=== PATIENT | female | born 1935 | race Hispanic/Latino ===

== ENCOUNTER → 2018-01-24 | Day surgery (SDC) | payer OTHER ==
[2018-01-22 11:49] LABS: BASOPHILS % 0.4 % (0.0-1.0); EOSINOPHILS # (AUTO) 0.1 (0.0-0.4); EOSINOPHILS % 1.2 % (0.0-6.0); HEMOGLOBIN 12.6 g/dL (12.0-16.0); LYMPHOCYTES # (AUTO) 1.9 (1.0-3.2); MEAN CORPUSCULAR HEMOGLOBIN 32.3 pg (28-32); MEAN CORPUSCULAR HGB CONC 34.1 g/dL (31-35); MEAN CORPUSCULAR VOLUME 94.9 fL (81-99); MONOCYTES % 14.1 % (4.4-11.3); NEUTROPHILS # (AUTO) 3.8 (2.1-6.9); PLATELET COUNT 133 x10e3/uL (140-360); RED CELL DISTRIBUTION WIDTH 13.2 % (11.7-14.4)
[~2018-01-24] MED LIST: AMLODIPINE BESYL5 MG PO; ASPIRIN81 MG PO; ATORVASTATIN CA20 MG PO; CARVEDILOL12.5 MG PO; CITALOPRAM HBR20 MG PO; DEXILANT60 MG PO; FERROUS SULFAT325 MG PO; HEMOCYTE PLUS1 EACH PO; LASIX40 MG PO; LEVOTHYROXINE100 MCG PO; LIDOCAINE HCL 2% LOCAL INJ 5 ML SDV VIAL INJ ONE; LINZESS PO; POTASSIUM CHLO20 ME1 PO; POTASSIUM CITR10 MEQ PO; PROPAFENONE HC150 MG PO; PROPOFOL IV EMULSION 10 MG/ML 50 ML VIAL ONE; PROTONIX40 MG PO; SPIRONOLACTONE25 MG PO; VITAMIN C500 M1 PO; VITAMIN C500 M2 PO; XARELTO10 MG PO; XARELTO15 MG PO
[2018-01-24 12:23] LABS: INR 1.23; PARTIAL THROMBOPLASTIN TIME 29.5 seconds (23.8-35.5); PROTHROMBIN TIME 14.6 seconds (11.9-14.5)
[2018-01-24 12:32] LABS: ALBUMIN 3.9 g/dL (3.5-5.0); ALBUMIN/GLOBULIN RATIO 1.1 (0.8-2.0); ANION GAP 16.4 mmol/L (8-16); CALCIUM 9.5 mg/dL (8.4-10.2); CREATININE, SERUM 1.21 mg/dL (0.57-1.11); POTASSIUM 3.4 mmol/L (3.5-5.1)
== END | disposition home or self-care (01) ==
LOC: OR 09:43
PROVIDERS: ATTEND Internal Medicine Gastroenterology
DX: K29.70 Gastritis, unspecified, without bleeding (principal); K44.9 Diaphragmatic hernia without obstruction or gangrene; K63.5 Polyp of colon; K59.00 Constipation, unspecified; K57.30 Diverticulosis of large intestine without perforation or abscess without bleeding; K64.8 Other hemorrhoids; I11.0 Hypertensive heart disease with heart failure; I50.9 Heart failure, unspecified; E78.5 Hyperlipidemia, unspecified; K74.60 Unspecified cirrhosis of liver; D69.6 Thrombocytopenia, unspecified; K58.9 Irritable bowel syndrome, unspecified
CPT/HCPCS: 36415 ×2; 43239; 45380; 80053; 85025; 85610; 85730; 93005; J2001

== ENCOUNTER 2018-05-08 13:14 | Observation (INO) | payer OTHER ==
[~2018-05-08] VITALS: Ht 152.4 cm; Wt 73.5 kg
[~2018-05-08 13:14] MED LIST changes: -LIDOCAINE HCL 2% LOCAL INJ 5 ML SDV VIAL INJ ONE; -PROPOFOL IV EMULSION 10 MG/ML 50 ML VIAL ONE
[2018-05-08 15:51] LABS: BASOPHILS % 0.3 % (0.0-1.0); EOSINOPHILS # (AUTO) 0.1 (0.0-0.4); EOSINOPHILS % 1.1 % (0.0-6.0); HEMATOCRIT 35.4 % (34.2-44.1); HEMOGLOBIN 11.7 g/dL (12.0-16.0); LYMPHOCYTES # (AUTO) 1.5 (1.0-3.2); LYMPHOCYTES % 20.9 % (18.0-39.1); MEAN CORPUSCULAR HEMOGLOBIN 31.4 pg (28-32); MEAN CORPUSCULAR HGB CONC 33.1 g/dL (31-35); MEAN CORPUSCULAR VOLUME 94.9 fL (81-99); MONOCYTES # (AUTO) 0.8 (0.2-0.8); MONOCYTES % 11.3 % (4.4-11.3); NEUTROPHILS # (AUTO) 4.6 (2.1-6.9); RED BLOOD COUNT 3.73 x10e6/uL (3.6-5.1); RED CELL DISTRIBUTION WIDTH 13.7 % (11.7-14.4)
[2018-05-08 15:59] LABS: PLATELET COUNT 96 x10e3/uL (140-360)
[2018-05-08 16:00] LABS: INR 2.24; PROTHROMBIN TIME 26.5 seconds (11.9-14.5)
[2018-05-08 16:12] LABS: ALBUMIN 4.3 g/dL (3.5-5.0); ALBUMIN/GLOBULIN RATIO 1.2 (0.8-2.0); ANION GAP 16.7 mmol/L (8-16); CALCIUM 9.5 mg/dL (8.4-10.2); CREATININE, SERUM 1.49 mg/dL (0.57-1.11); MAGNESIUM 2.5 MG/DL (1.3-2.1); POTASSIUM 3.7 mmol/L (3.5-5.1)
[2018-05-08 16:19] LABS: B-TYPE NATRIURETIC PEPTIDE2 314.1 pg/mL (0-100)
--- NOTE | 2018-05-08 16:23 | Diagnostic Imaging Report ---
A single frontal view of the chest. HISTORY: Shortness of breath, swelling COMPARISON: None available. DISCUSSION: Portable technique, limits sensitivity of the exam. Soft tissue attenuation partially limits sensitivity of the exam. Numerous overlying monitoring leads. Tubes/Lines: A left-sided implanted cardiac device with 2 leads. Lungs and pleura: Diffusely increased pulmonary markings. Mild left basilar volume loss. Mild blunting of the left costophrenic angle and prominence of the right minor fissure. Underlying pathology could be obscured. Heart and mediastinum: The cardiac silhouette is enlarged. Enlargement of the central pulmonary vasculature. Bones: Multiple median sternotomy wires. IMPRESSION: 1. Findings compatible with volume overload resulting in central pulmonary vascular congestion congestion, pulmonary edema, and small bilateral pleural effusions. 2. Mild left basilar atelectasis. 3. Recommend short term follow up routine PA and lateral chest radiographs, in 6-8 weeks, to evaluate for resolution. Signed by: Dr. Avery Biggs D.O., M.M.M. on 05/08/2018 4:19 PM
[2018-05-08] MEDS ORDERED: FUROSEMIDE INJ 10 MG/ML 4 ML VIAL IV NR (16:45)
[2018-05-08 16:47] LABS: CREATINE KINASE MB 1.3 ng/mL (0-5.0); THYROID STIMULATING HORMONE 1.654 uIU/mL (0.350-4.940)
[2018-05-08 18:32] LABS: BILIRUBIN,URINE NEGATIVE (NEGATIVE); CLARITY,URINE CLEAR (CLEAR); COLOR,URINE YELLOW (YELLOW); KETONES,URINE NEGATIVE (NEGATIVE); LEUKOCYTE ESTERASE ,URINE NEGATIVE (NEGATIVE); NITRITE,URINE NEGATIVE (NEGATIVE); PROTEIN,URINE DIPSTICK NEGATIVE (NEGATIVE); URINE UROBILINOGEN 0.2 mg/dL (0.2 - 1)
[2018-05-08 18:41] LABS: EPITHELIAL CELLS,URINE RARE /LPF
--- OUTSIDE RECORDS SUMMARY | 2018-05-08 19:06 | XMS REPORT ---
[facility] Address Unknown Phone Unavailable Care Team Providers Care Accounts Clerk Name Role Phone Luis Eduardo BRODY Unavailable Unavailable Problems This patient has no known problems. Allergies, Adverse Reactions, Alerts This patient has no known allergies or adverse reactions. Medications This patient has no known medications. Results Test Description Test Time Test Comments Text Results Atomic Results Result Comments CHEST SINGLE (PORTABLE) 2018-05-08 16:16:00 [place] [address] Patient Name: IWONA REYES MR #: [id number] : 1935 Age/Sex: 83/F Req #: [id number] Adm Physician: Ordered by: CONNOR BRODY MD Report #: [id number] Location: ER Room/Bed: Procedure: [id number] DX/CHEST SINGLE (PORTABLE) Exam Date: 05/08/18 Exam Time: 1545 REPORT STATUS: Signed A single frontal view of the chest. HISTORY: Shalini rtness of breath, swelling COMPARISON: None available. DISCUSSION: Portable technique, limits sensitivity of the exam. Soft tissue attenuation partially limits sensitivity of the exam. Numerous overlying monitoring leads. Tubes/Lines: A left-sided implanted cardiac device with 2 leads. Lungs and pleura: Diffusely increased pulmonary markings. Mild left basilar volume loss. Mild blunting of the left costophrenic angle and prominence of the right minor fissure. Underlying pathology could be obscured. Heart and mediastinum: The cardiac silhouette is enlarged. Enlargement of the central pulmonary vasculature. Bones: Multiple median sternotomy wires. IMPRESSION: 1. Findings compatible with volume overload resulting in central pulmonary vascular congestion congestion, pulmonary edema, and small bilateral pleural effusions. 2. Mild left basilar atelectasis. 3. Recommend short term follow up routine PA and lateral chest radiographs, in 6- 8 weeks, to evaluate for resolution. Signed by: Dr. Susannah Biggs D.O., M.M.M. on 05/08/2018 4:19 PM Dictated By: SUSANNAH BIGGS DO 18 Transcribed By: FARHAT on 05/08/181618 COPY TO: CONNOR BRODY MD
[2018-05-08 23:38] LABS: CREATINE KINASE MB 1.1 ng/mL (0-5.0)
[2018-05-09 06:21] LABS: BASOPHILS % 0.3 % (0.0-1.0); EOSINOPHILS # (AUTO) 0.1 (0.0-0.4); EOSINOPHILS % 0.9 % (0.0-6.0); HEMATOCRIT 33.3 % (34.2-44.1); HEMOGLOBIN 11.1 g/dL (12.0-16.0); LYMPHOCYTES # (AUTO) 1.2 (1.0-3.2); LYMPHOCYTES % 17.4 % (18.0-39.1); MEAN CORPUSCULAR HEMOGLOBIN 31.6 pg (28-32); MEAN CORPUSCULAR HGB CONC 33.3 g/dL (31-35); MEAN CORPUSCULAR VOLUME 94.9 fL (81-99); MONOCYTES # (AUTO) 0.7 (0.2-0.8); MONOCYTES % 10.1 % (4.4-11.3); NEUTROPHILS # (AUTO) 4.9 (2.1-6.9); PLATELET COUNT 109 x10e3/uL (140-360); RED BLOOD COUNT 3.51 x10e6/uL (3.6-5.1); RED CELL DISTRIBUTION WIDTH 13.6 % (11.7-14.4)
[2018-05-09 07:21] LABS: ALBUMIN 3.9 g/dL (3.5-5.0); ALBUMIN/GLOBULIN RATIO 1.2 (0.8-2.0); ANION GAP 13.5 mmol/L (8-16); CALCIUM 9.2 mg/dL (8.4-10.2); CREATININE, SERUM 1.27 mg/dL (0.57-1.11); POTASSIUM 3.5 mmol/L (3.5-5.1)
[2018-05-09 08:34] LABS: CREATINE KINASE MB 0.9 ng/mL (0-5.0)
[2018-05-09] MEDS: FUROSEMIDE INJ 10 MG/ML 4 ML VIAL IV SCH ×2 (08:45→17:16)
[2018-05-09] MEDS: CARVEDILOL 12.5 MG TAB PO SCH ×2 (11:03→17:16)
[2018-05-09] MEDS: PANTOPRAZOLE SOD 40 MG TABEC PO SCH (11:03)
[2018-05-09] MEDS: LEVOTHYROXINE SODIUM 75 MCG TAB PO SCH (11:03)
[2018-05-09] MEDS: RIVAROXABAN 15 MG TABLET PO SCH (11:03)
[2018-05-09] MEDS: PROPAFENONE HCL 150 MG TAB PO SCH ×2 (11:03→17:16)
[2018-05-09 11:22] VITALS: BP 144/74
[2018-05-09 11:45] VITALS: BP 144/74
[2018-05-09 15:06] VITALS: BP 130/60
[2018-05-09] MEDS ORDERED: PROPAFENONE HCL 150 MG TAB PO SCH (17:00)
[2018-05-09] MEDS ORDERED: CARVEDILOL 12.5 MG TAB PO SCH (17:00)
[2018-05-09 20:00] VITALS: BP 135/66
[2018-05-09] MEDS ORDERED: ATORVASTATIN 20 MG TAB PO SCH (21:00)
[2018-05-09 23:42] VITALS: BP 123/59
[2018-05-09 23:43] VITALS: BP 123/59
[2018-05-10 04:55] VITALS: BP 135/62
[2018-05-10 05:46] LABS: ANION GAP 15.1 mmol/L (8-16); CALCIUM 9.6 mg/dL (8.4-10.2); CREATININE, SERUM 1.32 mg/dL (0.57-1.11); POTASSIUM 4.1 mmol/L (3.5-5.1)
[2018-05-10] MEDS ORDERED: LEVOTHYROXINE SODIUM 75 MCG TAB PO SCH (06:00)
[2018-05-10] MEDS: LEVOTHYROXINE SODIUM 75 MCG TAB PO SCH (06:08)
[2018-05-10 07:24] VITALS: BP 131/60
[2018-05-10 08:56] VITALS: BP 131/60
[2018-05-10] MEDS ORDERED: RIVAROXABAN 10 MG TABLET PO SCH (09:00)
[2018-05-10] MEDS ORDERED: LEVOTHYROXINE SODIUM 100 MCG TAB PO SCH (09:00)
[2018-05-10] MEDS ORDERED: RIVAROXABAN 15 MG TABLET PO SCH (09:00)
[2018-05-10] MEDS ORDERED: FERROUS SULFATE 325 MG TAB PO SCH (09:00)
[2018-05-10] MEDS ORDERED: PANTOPRAZOLE SOD 40 MG TABEC PO SCH ×2 (09:00)
[2018-05-10] MEDS ORDERED: CITALOPRAM HYDROBROMIDE 20 MG TAB PO SCH (09:00)
[2018-05-10] MEDS ORDERED: NON-FORMULARY MEDICATION ([Linzess] 290 MCG) PO SCH ×2 (09:00)
[2018-05-10] MEDS ORDERED: ASCORBIC ACID 500 MG TAB PO SCH (09:00)
[2018-05-10] MEDS: PANTOPRAZOLE SOD 40 MG TABEC PO SCH (09:25)
[2018-05-10] MEDS: PROPAFENONE HCL 150 MG TAB PO SCH (09:25)
[2018-05-10] MEDS: FUROSEMIDE INJ 10 MG/ML 4 ML VIAL IV SCH (09:25)
[2018-05-10] MEDS: CARVEDILOL 12.5 MG TAB PO SCH (09:25)
[2018-05-10] MEDS: RIVAROXABAN 15 MG TABLET PO SCH (09:26)
[2018-05-10 11:36] VITALS: BP 149/67
--- NOTE | 2018-05-10 14:30 | Discharge Summary ---
The patient was in observation. PCP: Layo De Los Santos MD FINAL DIAGNOSIS: [id number] systolic dysfunction congestive heart failure exacerbation. SUMMARY: This 83-year-old female was drinking a lot of hot water, eating soup, orange juice and coffee. Patient came in with vascular congestion on chest x-ray. Patient basically has acute exacerbation of her systolic/diastolic dysfunction congestive heart failure. The patient has atrial fibrillation. 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 She has AV thickening as well. Patient has trace PI. Patient also has trace to mild MR and IL. Patient is stable now. She was given IV Lasix. At home, the patient was only taking Lasix 40 mg twice a day. The patient is comfortable today. She will go home now. The swelling has significantly subsided. I will add on Zaroxolyn 2.5 mg daily as needed for increase in swelling. The patient is otherwise stable. Discharged home follow up with Dr. Layo De Los Santos in approximately 1 week. Job#: [id number]
== END 2018-05-10 11:41 | disposition home or self-care (01) ==
LOC: ER 13:14 → INTOOBSV 19:04 → ERHOLD 19:04 → IMCU 05-09 11:15
PROVIDERS: ADMIT Internal Medicine; ATTEND Internal Medicine
DX: I11.0 Hypertensive heart disease with heart failure (principal); I50.43 Acute on chronic combined systolic (congestive) and diastolic (congestive) heart failure; E78.5 Hyperlipidemia, unspecified; K21.9 Gastro-esophageal reflux disease without esophagitis; E03.9 Hypothyroidism, unspecified; I25.10 Atherosclerotic heart disease of native coronary artery without angina pectoris; Z95.1 Presence of aortocoronary bypass graft; Z95.810 Presence of automatic (implantable) cardiac defibrillator; D64.9 Anemia, unspecified; R09.02 Hypoxemia; I48.91 Unspecified atrial fibrillation
CPT/HCPCS: 36415 ×3; 71045; 80048; 80053 ×2; 81001; 82550 ×2; 82553 ×2; 82948; 83605; 83735; 83880; 84443; 84484 ×2; 85025 ×2; 85610; 85730; 87040; 87086; 93005; 93306; 99284; G0378 ×3; J1940 ×3; S0164 ×2

== ENCOUNTER 2019-01-11 13:58 | Inpatient (IN) | payer MEDICARE, OTHER ==
[~2019-01-11] VITALS: Ht 160 cm; Wt 74.0 kg
--- OUTSIDE RECORDS SUMMARY | 2019-01-11 14:02 | XMS REPORT | Continuity of Care Document ---
Author Author [email or web address] Organization gate5 Address Unknown Phone Unavailable Care Team Providers Care Cloth Reeler Name Role Phone [email or web address] Unavailable Unavailable Problems Problem Status Onset Date Classification Date Reported Comments Source I63.9 Active 08/03/2018 [facility] PACEMAKER DUAL CHAMBER RV LEAD REVISION Active 06/27/2018 [facility] AMS Active 10/23/2015 [facility] ACUTE CONFUSION Active 10/23/2015 [facility] Discharge Diagnosis: Abdominal pain 04/15/2015 04/18/2015 [facility] SOB/FEET SWOLLEN/CANT PASS ANYTHING Active 04/14/2015 [facility] Discharge Diagnosis: Neck pain 02/02/2015 02/05/2015 [facility] 285 - ANEMIA NEC/NOS Active 02/02/2015 [facility] SOB Active 02/02/2015 [facility] CAHF Active 12/04/2014 [facility] DIFFICULTY BREATHING Active 12/02/2014 [facility] PLEURAL EFFUSION Active 12/02/2014 [facility] LWBS Active 11/29/2014 [facility] Discharge Diagnosis: Nausea and vomiting 10/30/2014 11/02/2014 [facility] Discharge Diagnosis: Cough 10/30/2014 11/02/2014 [facility] Discharge Diagnosis: Creatinine elevation 10/30/2014 11/02/2014 [facility] FEVER, VOMITING, NOSE BLEEDS, HEADACHE Active 10/30/2014 [facility] POSSIBLE MINI STROKE Active 10/07/2014 [facility] TIA Active 10/07/2014 [facility] Final: 10/14/2014 [facility] Afib Active Problem 08/06/2018 [facility] Resolved Problem 08[facility]06[facility]2018 [facility] Active Problem 08/06/2018 [facility] Active Problem 08/06/2018 [facility] CAD (Confirmed) Active Problem 08/06/2018 [facility] Heart failure Active Problem 08/06/2018 [facility], [place] HTN (Confirmed) Active Problem 08/06/2018 [facility] Hypertension Resolved Problem 08/06/2018 [facility] TRANS CEREB ISCHEMIA NEC Active [facility] PLEURAL EFFUSION NOS Active [facility] CEREBRAL INFARCTION, UNSPECIFIED Active [facility] Medications Medication Details Route Status Patient Instructions Ordering Provider Order Date Source Lactulose 667 MG/ML Oral Solution 20 gm=30 mL, PO, BID, X 30 day, # 1800 mL, 2 Refill(s) Active 10/25/2015 [facility] Omeprazole 40 mg, Route: PO, Drug form: DRC, Daily, Dosing Weight 63.636, kg, Start date: 10/25/15 9:00:00 CDT, Duration: 30 day, Stop date: 11/23/15 9:00:00 CDT No Longer Active 10/25/2015 [facility] Aspirin 81 MG Enteric Coated Tablet 81 mg, 1 tab, Route: PO, Drug form: ECTAB, Daily, Dosing Weight 63.636, kg, Start date: 10/25/15 9:00:00 CDT, Duration: 30 day, Stop date: 11/23/15 9:00:00 CDTNotes: Do not crush or chew. (Same As: Ecotrin) Inactive 10/25/2015 [facility] Amlodipine 5 mg, 1 tab, Route: PO, Drug form: TAB, Daily, Dosing Weight 63.636, kg, Start date: 10/25/15 9:00:00 CDT, Duration: 30 day, Stop date: 11/23/15 9:00:00 CDTNotes: (Same as: Norvasc) Inactive 10/25/2015 [facility] Vitamin C 500 mg, 1 tab, Route: PO, Drug form: TAB, Daily, Dosing Weight 63.636, kg, Start date: 10/25/15 9:00:00 CDT, Duration: 30 day, Stop date: 11/23/15 9:00:00 CDTNotes: (Same as: Vitamin C) Inactive 10/25/2015 [facility] Thyroxine 100 microgram, 1 tab, Route: PO, Drug form: TAB, Before Breakfast, Dosing Weight 63.636, kg, Start date: 10/25/15 7:30:00 CDT, Duration: 30 day, Stop date: 11/23/15 7:30:00 CDTNotes: Take 1 hour before or 2 hours after meal; Enteral feeds may interefere with the absorption of this medication. (Same as:Levothroid, Synthroid) Inactive 10/25/2015 [facility] atorvastatin 20 mg, 1 tab, Route: PO, Drug form: TAB, Bedtime, Dosing Weight 63.636, kg, Start date: 10/24/15 21:00:00 CDT, Duration: 30 day, Stop date: 11/22/15 21:00:00 CDTNotes: (Same As: Lipitor) No Longer Active 10/25/2015 [facility] Lactulose 20 gm, 30 ml, Route: PO, Drug Form: SYRP, Dosing Weight 63.636, kg, TID, Start date: 10/24/15 17:00:00 CDT, Duration: 30 day, Stop date: 11/23/15 13:00:00 CDTNotes: (Same as:Chronulac) No Longer Active 10/24/2015 [facility] Xarelto 15 mg, 1 tab, Route: PO, Drug form: TAB, QPM, Dosing Weight 63.636, kg, Start date: 10/24/15 17:00:00 CDT, Duration: 30 day, Stop date: 11/22/15 17:00:00 CDTNotes: (Same as: Xarelto) Administer with food No Longer Active 10/24/2015 [facility] Furosemide 40 MG Oral Tablet 40 mg, 1 tab, Route: PO, Drug form: TAB, BID, Dosing Weight 63.636, kg, Start date: 10/24/15 17:00:00 CDT, Duration: 30 day, Stop date: 11/23/15 9:00:00 CDTNotes: (Same as: Lasix) May cause GI upset. Give with food or milk. No Longer Active 10/24/2015 [facility] carvedilol 12.5 mg, 1 tab, Route: PO, Drug form: TAB, BID, Dosing Weight 63.636, kg, Start date: 10/24/15 17:00:00 CDT, Duration: 30 day, Stop date: 11/23/15 9:00:00 CDTNotes: Give with food. (Same As: Coreg) No Longer Active 10/24/2015 [facility] Protonix 40 mg, 1 tab, Route: PO, Drug form: ECTAB, Before Dinner, Start date: 10/24/15 16:30:00 CDT, Duration: 30 day, Stop date: 11/22/15 16:30:00 CDTNotes: Tablet should not be chewed or crushed. (Same as: Protonix) No Longer Active 10/24/2015 [facility] Propafenone 150 mg, 1 tab, Route: PO, Drug form: TAB, Q8H, Dosing Weight 63.636, kg, Start date: 10/24/15 16:00:00 CDT, Duration: 30 day, Stop date: 11/23/15 8:00:00 CDTNotes: (Same as: Rythmol) No Longer Active 10/24/2015 [facility] Acetaminophen 650 mg, 2 tab, Route: PO, Drug form: TAB, Q4H, Dosing Weight 63.636, kg, PRN Pain 1-3/Temp > 100.4 F, Start date: 10/24/15 11:51:00 CDT, Duration: 30 day, Stop date: 11/23/15 11:50:00 CDTNotes: Do not exceed 4 gm/day. (Same as: Tylenol) No Longer Active 10/24/2015 [facility] Tylenol 650 mg, Route: PO, Drug form: TAB, ONCE, Dosing Weight 63.636, kg, Priority: STAT, Start date: 10/24/15 9:51:00 CDT, Stop date: 10/24/15 9:51:00 CDT Inactive 10/24/2015 [facility] GI cocktail 30 mL, Route: PO, Drug Form: SUSP, Dosing Weight 65.909, kg, ONCE, STAT, Start date: 04/15/15 0:08:00, Stop date: 04/15/15 0:08:00Notes: G.I. Cocktail=antacid with simethicone 22.5 mL - lidocaine viscous 7.5 mL Inactive 04/15/2015 [facility] Saline Flush 0.9% 10 mL, Route: IVP, Drug Form: INJ, Dosing Weight 65.909, kg, PRN, PRN Line Flush, Start date: 04/14/15 22:07:00, Duration: 30 day, Stop date: 05/14/15 21:06:00Notes: (Same as: BD Posiflush) No Longer Active 04/15/2015 [facility] Ibuprofen 600 mg, 1 tab, Route: PO, Drug form: TAB, ONCE, Dosing Weight 65.909, kg, Priority: STAT, Start date: 02/02/15 13:44:00, Stop date: 02/02/15 13:44:00Notes: (Same as: Motrin) "Do Not Crush" Take with food. Inactive 02/02/2015 [facility] Sodium Chloride 0.154 MEQ/ML Inhalant Solution 1 bottle, INHALATION, Bedtime, # 1 btl, 3 Refill(s) Active 10/31/2014 [facility] Ondansetron 4 MG Oral Tablet [Zofran] 4 mg=1 tab, PO, BID, PRN Nausea, X 5 day, # 10 tab, 0 Refill(s) Active 10/31/2014 [facility] benzonatate 100 MG Oral Capsule [Tessalon Perles] 100 mg=1 cap, PO, TID, PRN Cough/Congestion, X 7 day, # 21 cap, 0 Refill(s) Active 10/31/2014 [facility] Sodium Chloride 0.154 MEQ/ML Injectable Solution 250 mL, 250 ml/hr, Infuse Over: 1 hr, Route: IV, 250, Drug form: INJ, ONCE, Priority: STAT, Dosing Weight 68.002 kg, Start date: 10/30/14 19:59:00, Duration: 1 doses or times, Stop date: 10/30/14 19:59:00 Inactive 10/31/2014 [facility] Aspirin 325 mg, 1 tab, Route: PO, Drug form: TAB, ONCE, Dosing Weight 68.002, kg, Priority: STAT, Start date: 10/30/14 19:59:00, Stop date: 10/30/14 19:59:00 Inactive 10/31/2014 [facility] Ibuprofen 600 mg, Route: PO, ONCE, Dosing Weight 68.002, kg, Priority: STAT, Start date: 10/30/14 19:58:00, Stop date: 10/30/14 19:58:00 Inactive 10/31/2014 [facility] Ondansetron 4 mg, 2 mL, Route: IVP, Drug form: INJ, ONCE, Dosing Weight 68.002, kg, Priority: STAT, Start date: 10/30/14 19:58:00, Stop date: 10/30/14 19:58:00Notes: (Same as: Zofran) MEDICATION WASTE Product Size: 4 mg Product Wasted: ___ mg Inactive 10/31/2014 [facility] Morphine 4 mg, 1 mL, Route: IVP, Drug form: INJ, ONCE, Dosing Weight 68.002, kg, Priority: STAT, Start date: 10/30/14 19:58:00, Stop date: 10/30/14 19:58:00Notes: (Same as:MORPhine Sulfate) Inactive 10/31/2014 [facility] Furosemide 40 MG Oral Tablet [Lasix] 40 mg, 1 tab, Route: PO, Drug form: TAB, BID, Dosing Weight 75, kg, Start date: 10/12/14 17:00:00, Duration: 30 day, Stop date: 11/11/14 9:00:00Notes: (Same as: Lasix) May cause GI upset. Give with food or milk. Inactive 10/12/2014 [facility] potassium citrate 10 mEq oral extended release tablet 10 mEq=1 tab, PO, Daily, # 30 tab, 0 Refill(s) Active 10/12/2014 [facility] Furosemide 40 MG Oral Tablet [Lasix] 40 mg=1 tab, PO, BID, # 60 tab, 0 Refill(s) Active 10/12/2014 [facility] potassium chloride 20 mEq, 1 tab, Route: PO, Drug form: ERTAB, ONCE, Dosing Weight 75, kg, Start date: 10/11/14 7:22:00, Stop date: 10/11/14 7:22:00Notes: (Same as: K-Dur 20) "Do Not Crush" With food and full glass of water Inactive 10/11/2014 [facility] Tylenol 650 mg, 2 tab, Route: PO, Drug form: TAB, Q6H, Dosing Weight 75, kg, PRN Pain Score 1-5, Start date: 10/10/14 18:21:00, Duration: 30 day, Stop date: 11/09/14 18:20:00Notes: Do not exceed 4 gm/day. ( Same as: Tylenol) No Longer Active 10/10/2014 [facility] Lasix 40 mg, 4 mL, Route: IV, Drug form: INJ, BID, Dosing Weight 75, kg, Start date: 10/10/14 18:00:00, Duration: 30 day, Stop date: 11/09/14 17:00:00Notes: (Same as: Lasix) MEDICATION WASTE Product Size: 40 mg Product Wasted: ___ mg No Longer Active 10/10/2014 [facility] Lasix 20 mg, 2 mL, Route: IV, Drug form: INJ, ONCE, Dosing Weight 75, kg, Start date: 10/10/14 8:45:00, Stop date: 10/10/14 8:45:00Notes: (Same as: Lasix) Inactive 10/10/2014 [facility] Lasix 20 mg, 2 mL, Route: IVP, Drug form: INJ, BID Diuretic, Dosing Weight 75, kg, Start date: 10/10/14 6:00:00, Duration: 30 day, Stop date: 11/08/14 14:00:00Notes: (Same as: Lasix) Inactive 10/10/2014 [facility] Lasix 40 mg, 4 mL, Route: IV, Drug form: INJ, ONCE, Dosing Weight 75, kg, Priority: STAT, Start date: 10/09/14 11:57:00, Stop date: 10/09/14 11:57:00Notes: (Same as: Lasix) Inactive 10/09/2014 [facility] Lasix 40 mg, 4 mL, Route: IV, Drug form: INJ, ONCE, Dosing Weight 75, kg, Start date: 10/09/14 6:55:00, Stop date: 10/09/14 6:55:00Notes: (Same as: Lasix) MEDICATION WASTE Product Size: 40 mg Product Wasted: ___ mg Inactive 10/09/2014 [facility] Albuterol 0.833 MG/ML / Ipratropium Hanna 0.167 MG/ML Inhalant Solution [DuoNeb] 3 ml, Route: INHALATION, Drug Form: SOLN, Dosing Weight 75, kg, PRN, PRN Respiratory Protocol, Start date: 10/09/14 3:22:00, Duration: 30 day, Stop date: 11/08/14 3:21:00Notes: (Same as: Duoneb) No Longer Active 10/09/2014 [facility] Zofran 4 mg, 2 mL, Route: IVP, Drug form: INJ, ONCE, Dosing Weight 75, kg, Start date: 10/09/14 1:37:00, Stop date: 10/09/14 1:37:00Notes: (Same as: Zofran) MEDICATION WASTE Product Size: 4 mg Product Wasted: ___ mg Inactive 10/09/2014 [facility] Robitussin-DM 10 mL, Route: PO, Drug Form: SYRP, Q6H, PRN Cough, Start date: 10/08/14 23:49:00, Duration: 30 day, Stop date: 11/07/14 23:48:00Notes: (dextromethorphan-guaifenesin 10-100mg/5ml 10 ml oral SOLN ud) ( Same as: Robitussin DM) No Longer Active 10/09/2014 [facility] Lipitor 80 mg, 1 tab, Route: PO, Drug form: TAB, Bedtime, Dosing Weight 70.455, kg, Start date: 10/08/14 21:00:00, Duration: 30 day, Stop date: 11/06/14 21:00:00Notes: Same as Lipitor No Longer Active 10/09/2014 [facility] Cough Relief 30 mg, Route: PO, Q8H, Dosing Weight 75, kg, PRN Cough/Congestion, Start date: 10/08/14 20:46:00, Duration: 30 day, Stop date: 11/07/14 20:45:00 Inactive 10/09/2014 [facility] Robitussin Cough Drop Head lozenge Route: PO, Q6H, PRN Cough, Start date: 10/08/14 20:45:00, Duration: 30 day, Stop date: 11/07/14 20:44:00 Inactive 10/09/2014 [facility] rivaroxaban 15 MG Oral Tablet [Xarelto] 15 mg=1 tab, PO, QPM Active 10/09/2014 [facility] levothyroxine 100 mcg (0.1 mg) oral tablet 100 microgram=1 tab, PO, QAM Active 10/09/2014 [facility] amLODIPine 5 mg oral tablet 5 mg=1 tab, PO, Daily No Longer Active 10/09/2014 [facility] dexlansoprazole 60 MG Enteric Coated Capsule [Dexilant] 60 mg=1 cap, PO, Daily Active 10/09/2014 [facility] propafenone 150 mg oral tablet 150 mg=1 tab, PO, Q8H Active 10/09/2014 [facility] Vitamin C 500 mg oral tablet 500 mg=1 tab, PO, Daily Active 10/09/2014 [facility] carvedilol 12.5 mg oral tablet 12.5 mg=1 tab, PO, BID No Longer Active 10/09/2014 [facility] atorvastatin 20 mg oral tablet 20 mg=1 tab, PO, Bedtime Active 10/09/2014 [facility] Aspirin 81 MG Enteric Coated Tablet 81 mg=1 tab, PO, Daily Active 10/09/2014 [facility] docusate sodium 100 mg oral capsule 100 mg=0, PO, BID, PRN Constipation No Longer Active 10/09/2014 [facility] Xarelto 15 mg, 1 tab, Route: PO, Drug form: TAB, QPM, Dosing Weight 70.455, kg, Start date: 10/08/14 17:00:00, Duration: 30 day, Stop date: 11/06/14 17:00:00Notes: (Same as: Xarelto) Administer with food No Longer Active 10/08/2014 [facility] Aspirin 81 mg, 1 tab, Route: PO, Drug form: ECTAB, Daily, Dosing Weight 70.455, kg, Start date: 10/08/14 9:00:00, Duration: 30 day, Stop date: 11/06/14 9:00:00Notes: Do not crush or chew. (Same As: Ecotrin) No Longer Active 10/08/2014 [facility] Thyroxine 100 microgram, 1 tab, Route: PO, Drug form: TAB, Q630AM, Dosing Weight 70.455, kg, Start date: 10/08/14 6:30:00, Duration: 30 day, Stop date: 11/06/14 6:30:00Notes: Take 1 hour before or 2 hours after meal; Enteral feeds may interefere with the absorption of this medication. (Same as:Levothroid, Synthroid) No Longer Active 10/08/2014 [facility] Propafenone 150 mg, 1 tab, Route: PO, Drug form: TAB, Q8H, Dosing Weight 70.455, kg, Start date: 10/08/14 0:00:00, Duration: 30 day, Stop date: 11/06/14 16:00:00Notes: (Same as: Rythmol) No Longer Active 10/08/2014 [facility] Docusate Sodium 100 MG Oral Capsule [Colace] 100 mg, 1 cap, Route: PO, Drug form: CAP, BID, Dosing Weight 70.455, kg, PRN Constipation, Start date: 10/07/14 22:58:00, Duration: 30 day, Stop date: 11/06/14 22:57:00Notes: (Same as: Colace) (Do Not Crush) No Longer Active 10/08/2014 [facility] normal saline 0.9% IV 1,000 mL 1,000 mL, Rate: 75 ml/hr, Infuse over: 13.3 hr, Route: IV, Dosing Weight 70.455 kg, Total Volume: 1,000, Start date: 10/07/14 21:32:00, Duration: 30 day, Stop date: 11/06/14 21:31:00 No Longer Active 10/08/2014 [facility] iodixanol 85 mL, Route: IVP, Drug Form: SOLN, Dosing Weight 70.455, kg, ONCALL, STAT, Start date: 10/07/14 21:17:00, Duration: 1 doses or times, Dose=2.2ml/kg, Max oggm=[id number] -- "To be infused by Radiology Staff ONLY"Special Instructions: Dose=2.2ml/kg, Max yyus=[id number] -- "To be infused by Radiology Staff ONLY" Inactive 10/08/2014 [facility] Saline Flush 0.9% 10 mL, Route: MISC, Drug Form: INJ, Dosing Weight 70.455, kg, PRN, PRN Line Flush, Start date: 10/07/14 18:19:00, Duration: 30 day, Stop date: 11/06/14 18:18:00Notes: (Same as: BD Posiflush) No Longer Active 10/07/2014 [facility] Allergies, Adverse Reactions, Alerts Substance Category Reaction Severity Reaction type Status Date Reported Comments Source NKFA Assertion Drug allergy Active [facility] Immunizations Immunization Date Given Site Status Last Updated Comments Source pneumococcal 23-valent vaccine<sup>1</sup> 12/03/2014 Not Given [facility] pneumococcal 23-valent vaccine 12/03/2014 Not Given [facility], [facility] Results Order Name Results Value Reference Range Date Interpretation Comments Source CHEM PANEL Magnesium Lvl 2.1 1.8 - 2.4 10/25/2015 [facility] CHEM PANEL Phosphorus 3.9 2.5 - 4.5 10/25/2015 [facility] ELECTROLYTES AGAP 14.5 10.0 - 20.0 10/25/2015 [facility] ELECTROLYTES B/C Ratio 13 6 - 25 10/25/2015 [facility] ELECTROLYTES Globulin 3.6 2.0 - 4.0 10/25/2015 [facility] ELECTROLYTES A/G Ratio 0.9 0.7 - 1.6 10/25/2015 [facility] ELECTROLYTES Bili Total 0.5 0.2 - 1.3 10/25/2015 [facility] ELECTROLYTES eGFR 42 10/25/2015 Result Comment: The eGFR is calculated using the CKD-EPI formula. In most young, healthy individuals the eGFR will be >90 mL/min/1.73m2. The eGFR declines with age. An eGFR of 60-89 may be normal in some populations, particularly the elderly, for whom the CKD-EPI formula has not been extensively validated. Use of the eGFR is not recommended in the following populations:

Individuals with unstable creatinine concentrations, including patients and those with serious co-morbid conditions.

Patients with extremes in muscle mass or diet.

The data above are obtained from the National Kidney Disease Education Program (NKDEP) which additionally recommends that when the eGFR is used in patients with extremes of body mass index for purposes of drug dosing, the eGFR should be multiplied by the estimated BMI. [facility] ELECTROLYTES Glucose Lvl 98 70 - 99 10/25/2015 [facility] ELECTROLYTES Creatinine Lvl 1.23 0.50 - 1.40 10/25/2015 [facility] ELECTROLYTES BUN 16 7 - 22 10/25/2015 [facility] ELECTROLYTES Potassium Lvl 3.5 3.5 - 5.1 10/25/2015 [facility] ELECTROLYTES Sodium Lvl 136 135 - 145 10/25/2015 [facility] ELECTROLYTES Chloride Lvl 101 95 - 109 10/25/2015 [facility] ELECTROLYTES Calcium Lvl 8.5 8.5 - 10.5 10/25/2015 [facility] ELECTROLYTES CO2 24 24 - 32 10/25/2015 [facility] ELECTROLYTES Total Protein 6.9 6.4 - 8.4 10/25/2015 [facility] ELECTROLYTES Albumin Lvl 3.3 3.5 - 5.0 10/25/2015 [facility] ELECTROLYTES ALT 19 0 - 65 10/25/2015 [facility] ELECTROLYTES Alk Phos 211 39 - 136 10/25/2015 [facility] ELECTROLYTES AST 20 0 - 37 10/25/2015 [facility] HEMATOLOGY MCHC 33.9 32.0 - 36.0 10/25/2015 [facility] HEMATOLOGY RDW 12.3 11.5 - 14.5 10/25/2015 [facility] HEMATOLOGY Platelet 139 133 - 450 10/25/2015 [facility] HEMATOLOGY MPV 10.4 7.4 - 10.4 10/25/2015 [facility] HEMATOLOGY MCV 96.1 80.0 - 98.0 10/25/2015 [facility] HEMATOLOGY Hct 34.3 36.0 - 48.0 10/25/2015 [facility] HEMATOLOGY MCH 32.6 27.0 - 31.0 10/25/2015 [facility] HEMATOLOGY WBC 4.6 3.7 - 10.4 10/25/2015 [facility] HEMATOLOGY Hgb 11.6 12.0 - 16.0 10/25/2015 [facility] HEMATOLOGY RBC 3.57 4.20 - 5.40 10/25/2015 [facility] HEMATOLOGY PTT 40.5 22.9 - 35.8 10/25/2015 [facility] HEMATOLOGY PT 25.3 12.0 - 14.7 10/25/2015 [facility] HEMATOLOGY INR 2.26 0.85 - 1.17 10/25/2015 [facility] HEMATOLOGY Segs 48.8 45.0 - 75.0 10/25/2015 [facility] HEMATOLOGY Lymphocytes 31.7 20.0 - 40.0 10/25/2015 [facility] HEMATOLOGY Basophils 0.4 0.0 - 1.0 10/25/2015 [facility] HEMATOLOGY Segs-Bands # 2.2 1.5 - 8.1 10/25/2015 [facility] HEMATOLOGY Monocytes 15.7 2.0 - 12.0 10/25/2015 [facility] HEMATOLOGY Eosinophils 3.4 0.0 - 4.0 10/25/2015 [facility] HEMATOLOGY Eosinophils # 0.2 0.0 - 0.5 10/25/2015 [facility] HEMATOLOGY Lymphocytes # 1.5 1.0 - 5.5 10/25/2015 [facility] HEMATOLOGY Monocytes # 0.7 0.0 - 0.8 10/25/2015 [facility] CARDIAC ENZYMES Troponin-I <0.02 0.00 - 0.40 10/24/2015 [facility] CARDIAC ENZYMES BNP 367 <=100 pg/mL 10/24/2015 [facility] CHEM PANEL A/G Ratio 0.9 0.7 - 1.6 10/24/2015 [facility] CHEM PANEL eGFR 45 10/24/2015 Result Comment: The eGFR is calculated using the CKD-EPI formula. In most young, healthy individuals the eGFR will be >90 mL/min/1.73m2. The eGFR declines with age. An eGFR of 60-89 may be normal in some populations, particularly the elderly, for whom the CKD-EPI formula has not been extensively validated. Use of the eGFR is not recommended in the following populations:

Individuals with unstable creatinine concentrations, including patients and those with serious co-morbid conditions.

Patients with extremes in muscle mass or diet.

The data above are obtained from the National Kidney Disease Education Program (NKDEP) which additionally recommends that when the eGFR is used in patients with extremes of body mass index for purposes of drug dosing, the eGFR should be multiplied by the estimated BMI. [facility] CHEM PANEL Sodium Lvl 138 135 - 145 10/24/2015 [facility] CHEM PANEL Chloride Lvl 100 95 - 109 10/24/2015 [facility] CHEM PANEL Potassium Lvl 3.5 3.5 - 5.1 10/24/2015 [facility] CHEM PANEL Alk Phos 230 39 - 136 10/24/2015 [facility] CHEM PANEL Globulin 4.1 2.0 - 4.0 10/24/2015 [facility] CHEM PANEL B/C Ratio 15 6 - 25 10/24/2015 [facility] CHEM PANEL AGAP 16.5 10.0 - 20.0 10/24/2015 [facility] CHEM PANEL Bili Total 0.6 0.2 - 1.3 10/24/2015 [facility] CHEM PANEL Total Protein 7.6 6.4 - 8.4 10/24/2015 [facility] CHEM PANEL Calcium Lvl 8.6 8.5 - 10.5 10/24/2015 [facility] CHEM PANEL CO2 25 24 - 32 10/24/2015 [facility] CHEM PANEL AST 22 0 - 37 10/24/2015 [facility] CHEM PANEL ALT 24 0 - 65 10/24/2015 [facility] CHEM PANEL Albumin Lvl 3.5 3.5 - 5.0 10/24/2015 [facility] CHEM PANEL Creatinine Lvl 1.17 0.50 - 1.40 10/24/2015 [facility] CHEM PANEL BUN 17 7 - 22 10/24/2015 [facility] CHEM PANEL Glucose Lvl 105 70 - 99 10/24/2015 [facility] CHEM PANEL Ammonia 40.0 <=45.0 uMol/L 10/24/2015 [facility] HEMATOLOGY PT 15.7 12.0 - 14.7 10/24/2015 [facility] HEMATOLOGY INR 1.22 0.85 - 1.17 10/24/2015 [facility] URINE AND STOOL UA Leuk Est Negative (10/24/15 4:48 PM) Negative 10/24/2015 [facility] URINE AND STOOL UA WBC 1 0 - 5 10/24/2015 [facility] URINE AND STOOL UA Nitrite Negative (10/24/15 4:48 PM) Negative 10/24/2015 [facility] URINE AND STOOL UA Urobilinogen <=1.0 mg/dL 0.1 - 1.0 10/24/2015 [facility] URINE AND STOOL UA Sq Epi None Seen 10/24/2015 [facility] URINE AND STOOL UA Color Yellow *NA* (10/24/15 4:48 PM) Yellow 10/24/2015 [facility] URINE AND STOOL UA Blood Negative (10/24/15 4:48 PM) Negative 10/24/2015 [facility] URINE AND STOOL UA Bili Negative *NA* (10/24/15 4:48 PM) Negative 10/24/2015 [facility] URINE AND STOOL UA Spec Grav 1.006 <=1.030 10/24/2015 [facility] URINE AND STOOL UA Turbidity Clear (10/24/15 4:48 PM) Clear 10/24/2015 [facility] URINE AND STOOL UA pH 7.0 5.0 - 8.0 10/24/2015 [facility] URINE AND STOOL UA Glucose Negative mg/dL Negative mg/dL 10/24/2015 [facility] URINE AND STOOL UA Protein Negative mg/dL Negative mg/dL 10/24/2015 [facility] URINE AND STOOL UA Ketones Negative mg/dL Negative mg/dL 10/24/2015 [facility] CARDIAC ENZYMES Troponin-I <0.02 0.00 - 0.40 10/24/2015 [facility] CHEM PANEL Lactic Acid WB 1.7 0.5 - 2.2 10/24/2015 [facility] CHEM PANEL Phosphorus 3.5 2.5 - 4.5 10/24/2015 [facility] CHEM PANEL Magnesium Lvl 2.1 1.8 - 2.4 10/24/2015 [facility] CHEM PANEL eGFR 44 10/24/2015 Result Comment: The eGFR is calculated using the CKD-EPI formula. In most young, healthy individuals the eGFR will be >90 mL/min/1.73m2. The eGFR declines with age. An eGFR of 60-89 may be normal in some populations, particularly the elderly, for whom the CKD-EPI formula has not been extensively validated. Use of the eGFR is not recommended in the following populations:

Individuals with unstable creatinine concentrations, including patients and those with serious co-morbid conditions.

Patients with extremes in muscle mass or diet.

The data above are obtained from the National Kidney Disease Education Program (NKDEP) which additionally recommends that when the eGFR is used in patients with extremes of body mass index for purposes of drug dosing, the eGFR should be multiplied by the estimated BMI. [facility] CHEM PANEL Calcium Lvl 9.5 8.5 - 10.5 10/24/2015 [facility] CHEM PANEL CO2 30 24 - 32 10/24/2015 [facility] CHEM PANEL Chloride Lvl 98 95 - 109 10/24/2015 [facility] CHEM PANEL Potassium Lvl 4.0 3.5 - 5.1 10/24/2015 [facility] CHEM PANEL Creatinine Lvl 1.19 0.50 - 1.40 10/24/2015 [facility] CHEM PANEL BUN 18 7 - 22 10/24/2015 [facility] CHEM PANEL Glucose Lvl 133 70 - 99 10/24/2015 [facility] CHEM PANEL Sodium Lvl 136 135 - 145 10/24/2015 [facility] CHEM PANEL AGAP 12.0 10.0 - 20.0 10/24/2015 [facility] DRUG SCREEN UDS Note See Note *NA* (10/24/15 5:56 AM) 10/24/2015 [facility] DRUG SCREEN U Phencyc Scr Negative *NA* (10/24/15 5:56 AM) Negative 10/24/2015 [facility] DRUG SCREEN U Opiate Scr Negative *NA* (10/24/15 5:56 AM) Negative 10/24/2015 [facility] DRUG SCREEN U Cocaine Scr Negative *NA* (10/24/15 5:56 AM) Negative 10/24/2015 [facility] DRUG SCREEN U Benzodia Scr Negative *NA* (10/24/15 5:56 AM) Negative 10/24/2015 [facility] DRUG SCREEN U Cannab Scr Negative *NA* (10/24/15 5:56 AM) Negative 10/24/2015 [facility] DRUG SCREEN U Amph Scr Negative *NA* (10/24/15 5:56 AM) Negative 10/24/2015 [facility] DRUG SCREEN U Divya Scr Negative *NA* (10/24/15 5:56 AM) Negative 10/24/2015 [facility] HEMATOLOGY Lymphocytes # 1.4 1.0 - 5.5 10/24/2015 [facility] HEMATOLOGY Segs-Bands # 3.7 1.5 - 8.1 10/24/2015 [facility] HEMATOLOGY Monocytes # 0.8 0.0 - 0.8 10/24/2015 [facility] HEMATOLOGY Eosinophils # 0.2 0.0 - 0.5 10/24/2015 [facility] HEMATOLOGY Segs 60.3 45.0 - 75.0 10/24/2015 [facility] HEMATOLOGY Lymphocytes 23.7 20.0 - 40.0 10/24/2015 [facility] HEMATOLOGY Monocytes 12.8 2.0 - 12.0 10/24/2015 [facility] HEMATOLOGY Basophils 0.3 0.0 - 1.0 10/24/2015 [facility] HEMATOLOGY Eosinophils 2.9 0.0 - 4.0 10/24/2015 [facility] HEMATOLOGY Hgb 12.3 12.0 - 16.0 10/24/2015 [facility] HEMATOLOGY MCV 96.4 80.0 - 98.0 10/24/2015 [facility] HEMATOLOGY Hct 37.2 36.0 - 48.0 10/24/2015 [facility] HEMATOLOGY MCH 31.9 27.0 - 31.0 10/24/2015 [facility] HEMATOLOGY Platelet 170 133 - 450 10/24/2015 [facility] HEMATOLOGY RDW 12.5 11.5 - 14.5 10/24/2015 [facility] HEMATOLOGY MPV 10.3 7.4 - 10.4 10/24/2015 [facility] HEMATOLOGY MCHC 33.1 32.0 - 36.0 10/24/2015 [facility] HEMATOLOGY WBC 6.1 3.7 - 10.4 10/24/2015 [facility] HEMATOLOGY RBC 3.86 4.20 - 5.40 10/24/2015 [facility] TOXICOLOGY Etoh (%) <0.003 % 10/24/2015 [facility] TOXICOLOGY Ethanol Lvl <3.0 mg/dL 10/24/2015 [facility] URINE AND STOOL UA Sq Epi Rare /LPF Few /LPF 10/24/2015 [facility] URINE AND STOOL UA Mucus Rare /LPF None Seen /LPF 10/24/2015 [facility] URINE AND STOOL UA WBC None Seen (10/24/15 5:56 AM) None Seen 10/24/2015 [facility] URINE AND STOOL UA Bacteria Occasional /HPF None Seen /HPF 10/24/2015 [facility] URINE AND STOOL UA RBC None Seen (10/24/15 5:56 AM) 0 - 2 10/24/2015 [facility] URINE AND STOOL UA Glucose Negative mg/dL Negative mg/dL 10/24/2015 [facility] URINE AND STOOL UA Bili Negative *NA* (10/24/15 5:56 AM) Negative 10/24/2015 [facility] URINE AND STOOL UA Blood Negative (10/24/15 5:56 AM) Negative 10/24/2015 [facility] URINE AND STOOL UA Urobilinogen 0.2 0.1 - 1.0 10/24/2015 [facility] URINE AND STOOL UA Ketones Negative mg/dL Negative mg/dL 10/24/2015 [facility] URINE AND STOOL UA pH 7.0 5.0 - 8.0 10/24/2015 [facility] URINE AND STOOL UA Protein Negative mg/dL Negative mg/dL 10/24/2015 [facility] URINE AND STOOL UA Nitrite Negative (10/24/15 5:56 AM) Negative 10/24/2015 [facility] URINE AND STOOL UA Leuk Est Negative (10/24/15 5:56 AM) Negative 10/24/2015 [facility] URINE AND STOOL UA Spec Grav 1.010 <=1.030 10/24/2015 [facility] URINE AND STOOL UA Turbidity Clear (10/24/15 5:56 AM) Clear 10/24/2015 [facility] URINE AND STOOL UA Color Yellow *NA* (10/24/15 5:56 AM) Yellow 10/24/2015 [facility] CHEM PANEL Albumin Lvl 3.8 3.5 - 5.0 04/15/2015 [facility] CHEM PANEL ALT 16 0 - 65 04/15/2015 [facility] CHEM PANEL AST 28 0 - 37 04/15/2015 [facility] CHEM PANEL Total Protein 7.9 6.4 - 8.4 04/15/2015 [facility] CHEM PANEL Bili Total 0.5 0.2 - 1.3 04/15/2015 [facility] CHEM PANEL Bili Direct 0.2 0.0 - 0.3 04/15/2015 [facility] CHEM PANEL Alk Phos 247 39 - 136 04/15/2015 [facility] CHEM PANEL Bili Indirect 0.3 0.0 - 1.0 04/15/2015 [facility] CHEM PANEL Globulin 4.1 2.0 - 4.0 04/15/2015 [facility] CHEM PANEL A/G Ratio 0.9 0.7 - 1.6 04/15/2015 [facility] CHEM PANEL Lipase Lvl 229 73 - 393 04/15/2015 [facility] ELECTROLYTES AGAP 12.9 10.0 - 20.0 04/15/2015 [facility] ELECTROLYTES CO2 24 24 - 32 04/15/2015 [facility] ELECTROLYTES Calcium Lvl 9.2 8.5 - 10.5 04/15/2015 [facility] ELECTROLYTES Chloride Lvl 101 95 - 109 04/15/2015 [facility] ELECTROLYTES eGFR 36 04/15/2015 Result Comment: The eGFR is calculated using the CKD-EPI formula. In most young, healthy individuals the eGFR will be >90 mL/min/1.73m2. The eGFR declines with age. An eGFR of 60-89 may be normal in some populations, particularly the elderly, for whom the CKD-EPI formula has not been extensively validated. Use of the eGFR is not recommended in the following populations:

Individuals with unstable creatinine concentrations, including patients and those with serious co-morbid conditions.

Patients with extremes in muscle mass or diet.

The data above are obtained from the National Kidney Disease Education Program (NKDEP) which additionally recommends that when the eGFR is used in patients with extremes of body mass index for purposes of drug dosing, the eGFR should be multiplied by the estimated BMI. [facility] ELECTROLYTES Sodium Lvl 134 135 - 145 04/15/2015 [facility] ELECTROLYTES Potassium Lvl 3.9 3.5 - 5.1 04/15/2015 [facility] ELECTROLYTES Creatinine Lvl 1.4 0.5 - 1.4 04/15/2015 [facility] ELECTROLYTES BUN 23 7 - 22 04/15/2015 [facility] ELECTROLYTES Glucose Lvl 111 70 - 99 04/15/2015 [facility] HEMATOLOGY MCV 89.3 80.0 - 98.0 04/15/2015 [facility] HEMATOLOGY RDW 17.5 11.5 - 14.5 04/15/2015 [facility] HEMATOLOGY Platelet 96 133 - 450 04/15/2015 [facility] HEMATOLOGY MCH 28.6 27.0 - 31.0 04/15/2015 [facility] HEMATOLOGY Hct 33.2 36.0 - 48.0 04/15/2015 [facility] HEMATOLOGY MPV 10.6 7.4 - 10.4 04/15/2015 [facility] HEMATOLOGY MCHC 32.1 32.0 - 36.0 04/15/2015 [facility] HEMATOLOGY RBC 3.72 4.20 - 5.40 04/15/2015 [facility] HEMATOLOGY WBC 6.8 3.7 - 10.4 04/15/2015 [facility] HEMATOLOGY Hgb 10.6 12.0 - 16.0 04/15/2015 [facility] HEMATOLOGY Basophils 0.4 0.0 - 1.0 04/15/2015 [facility] HEMATOLOGY Monocytes # 0.9 0.0 - 0.8 04/15/2015 [facility] HEMATOLOGY Eosinophils # 0.2 0.0 - 0.5 04/15/2015 [facility] HEMATOLOGY Segs 62.5 45.0 - 75.0 04/15/2015 [facility] HEMATOLOGY Segs-Bands # 4.2 1.5 - 8.1 04/15/2015 [facility] HEMATOLOGY Lymphocytes # 1.5 1.0 - 5.5 04/15/2015 [facility] HEMATOLOGY Lymphocytes 22.1 20.0 - 40.0 04/15/2015 [facility] HEMATOLOGY Monocytes 12.7 2.0 - 12.0 04/15/2015 [facility] HEMATOLOGY Eosinophils 2.3 0.0 - 4.0 04/15/2015 [facility] URINE AND STOOL UA Turbidity Slight Cloudy (04/14/15 10:07 PM) Clear 04/15/2015 [facility] URINE AND STOOL UA Color Yellow *NA* (04/14/15 10:07 PM) Yellow 04/15/2015 [facility] URINE AND STOOL UA Leuk Est Negative (04/14/15 10:07 PM) Negative 04/15/2015 [facility] URINE AND STOOL UA Nitrite Negative (04/14/15 10:07 PM) Negative 04/15/2015 [facility] URINE AND STOOL UA Urobilinogen 1.0 0.1 - 1.0 04/15/2015 [facility] URINE AND STOOL UA Blood Negative (04/14/15 10:07 PM) Negative 04/15/2015 [facility] URINE AND STOOL UA Bili Negative *NA* (04/14/15 10:07 PM) Negative 04/15/2015 [facility] URINE AND STOOL UA Glucose Negative (04/14/15 10:07 PM) Negative 04/15/2015 [facility] URINE AND STOOL UA Ketones Negative *NA* (04/14/15 10:07 PM) Negative 04/15/2015 [facility] URINE AND STOOL UA Spec Grav 1.011 <=1.030 04/15/2015 [facility] URINE AND STOOL UA Protein Negative (04/14/15 10:07 PM) Negative 04/15/2015 [facility] URINE AND STOOL UA pH 7.0 5.0 - 8.0 04/15/2015 [facility] URINE AND STOOL UA Bacteria Few /HPF None Seen /HPF 04/15/2015 [facility] URINE AND STOOL UA Sq Epi Few /LPF Few /LPF 04/15/2015 [facility] URINE AND STOOL UA RBC 0-2 /HPF 0 - 2 04/15/2015 [facility] URINE AND STOOL UA WBC 0-2 /HPF None Seen /HPF 04/15/2015 [facility] CARDIAC ENZYMES Troponin-I <0.02 0.00 - 0.40 02/02/2015 [facility] CHEM PANEL eGFR 36 02/02/2015 Result Comment: The eGFR is calculated using the CKD-EPI formula. In most young, healthy individuals the eGFR will be >90 mL/min/1.73m2. The eGFR declines with age. An eGFR of 60-89 may be normal in some populations, particularly the elderly, for whom the CKD-EPI formula has not been extensively validated. Use of the eGFR is not recommended in the following populations:

Individuals with unstable creatinine concentrations, including patients and those with serious co-morbid conditions.

Patients with extremes in muscle mass or diet.

The data above are obtained from the National Kidney Disease Education Program (NKDEP) which additionally recommends that when the eGFR is used in patients with extremes of body mass index for purposes of drug dosing, the eGFR should be multiplied by the estimated BMI. [facility] CHEM PANEL CO2 26 24 - 32 02/02/2015 [facility] CHEM PANEL Calcium Lvl 9.1 8.5 - 10.5 02/02/2015 [facility] CHEM PANEL BUN 23 7 - 22 02/02/2015 [facility] CHEM PANEL Glucose Lvl 97 70 - 99 02/02/2015 [facility] CHEM PANEL Potassium Lvl 4.2 3.5 - 5.1 02/02/2015 Result Comment: Specimen Slightly Hemolyzed. [facility] CHEM PANEL Chloride Lvl 100 95 - 109 02/02/2015 [facility] CHEM PANEL Sodium Lvl 138 135 - 145 02/02/2015 [facility] CHEM PANEL Creatinine Lvl 1.4 0.5 - 1.4 02/02/2015 [facility] CHEM PANEL AGAP 16.2 10.0 - 20.0 02/02/2015 [facility] HEMATOLOGY Eosinophils # 0.1 0.0 - 0.5 02/02/2015 [facility] HEMATOLOGY Lymphocytes # 1.8 1.0 - 5.5 02/02/2015 [facility] HEMATOLOGY Monocytes # 0.8 0.0 - 0.8 02/02/2015 [facility] HEMATOLOGY Basophils 0.5 0.0 - 1.0 02/02/2015 [facility] HEMATOLOGY Segs-Bands # 4.8 1.5 - 8.1 02/02/2015 [facility] HEMATOLOGY Segs 64.1 45.0 - 75.0 02/02/2015 [facility] HEMATOLOGY Lymphocytes 23.8 20.0 - 40.0 02/02/2015 [facility] HEMATOLOGY Monocytes 10.5 2.0 - 12.0 02/02/2015 [facility] HEMATOLOGY Eosinophils 1.1 0.0 - 4.0 02/02/2015 [facility] HEMATOLOGY MPV 10.9 7.4 - 10.4 02/02/2015 [facility] HEMATOLOGY MCHC 32.3 32.0 - 36.0 02/02/2015 [facility] HEMATOLOGY RDW 16.1 11.5 - 14.5 02/02/2015 [facility] HEMATOLOGY Platelet 138 133 - 450 02/02/2015 [facility] HEMATOLOGY Hct 32.4 36.0 - 48.0 02/02/2015 [facility] HEMATOLOGY MCV 86.7 80.0 - 98.0 02/02/2015 [facility] HEMATOLOGY MCH 28.0 27.0 - 31.0 02/02/2015 [facility] HEMATOLOGY WBC 7.5 3.7 - 10.4 02/02/2015 [facility] HEMATOLOGY Hgb 10.5 12.0 - 16.0 02/02/2015 [facility] HEMATOLOGY RBC 3.74 4.20 - 5.40 02/02/2015 [facility] CARDIAC ENZYMES Total CK 77 12 - 191 10/31/2014 [facility] CARDIAC ENZYMES Troponin-I <0.02 0.00 - 0.40 10/31/2014 [facility] CHEM PANEL Phosphorus 3.0 2.5 - 4.5 10/31/2014 [facility] CHEM PANEL Magnesium Lvl 2.1 1.8 - 2.4 10/31/2014 [facility] CHEM PANEL Bili Total 1.0 0.2 - 1.3 10/31/2014 [facility] CHEM PANEL ALT 14 0 - 65 10/31/2014 [facility] CHEM PANEL Albumin Lvl 4.0 3.5 - 5.0 10/31/2014 [facility] CHEM PANEL Total Protein 8.9 6.4 - 8.4 10/31/2014 [facility] CHEM PANEL AST 33 0 - 37 10/31/2014 [facility] CHEM PANEL Alk Phos 231 39 - 136 10/31/2014 [facility] CHEM PANEL eGFR 31 10/31/2014 <sup>1</sup>Result Comment: The eGFR is calculated using the CKD-EPI formula. In most young, healthy individuals the eGFR will be >90 mL/min/1.73m2. The eGFR declines with age. An eGFR of 60-89 may be normal in some populations, particularly the elderly, for whom the CKD-EPI formula has not been extensively validated. Use of the eGFR is not recommended in the following populations:& lt;br/>
Individuals with unstable creatinine concentrations, including patients and those with serious co-morbid conditions.

Patients with extremes in muscle mass or diet.

The data above are obtained from the National Kidney Disease Education Program (NKDEP) which additionally recommends that when the eGFR is used in patients with extremes of body mass index for purposes of drug dosing, the eGFR should be multiplied by the estimated BMI. [facility] CHEM PANEL CO2 27 24 - 32 10/31/2014 [facility] CHEM PANEL Potassium Lvl 3.7 3.5 - 5.1 10/31/2014 [facility] CHEM PANEL Chloride Lvl 94 95 - 109 10/31/2014 [facility] CHEM PANEL Creatinine Lvl 1.6 0.5 - 1.4 10/31/2014 [facility] CHEM PANEL Sodium Lvl 134 135 - 145 10/31/2014 [facility] CHEM PANEL Calcium Lvl 9.1 8.5 - 10.5 10/31/2014 [facility] CHEM PANEL BUN 18 7 - 22 10/31/2014 [facility] CHEM PANEL Glucose Lvl 123 70 - 99 10/31/2014 <sup>2</sup>Interpretive Data: Adult reference range values reflect the clinical guidelines
of the [place] [employer]. [facility] CHEM PANEL A/G Ratio 0.8 0.7 - 1.6 10/31/2014 [facility] CHEM PANEL Globulin 4.9 2.0 - 4.0 10/31/2014 [facility] CHEM PANEL B/C Ratio 11 6 - 25 10/31/2014 [facility] CHEM PANEL AGAP 16.7 10.0 - 20.0 10/31/2014 [facility] HEMATOLOGY INR 2.28 0.85 - 1.17 10/31/2014 <sup>3</sup>Interpretive Data: RECOMMENDED RANGES FOR PROTIME INR:
2.0-3.0 for most medical and surgical thromboembolic states.
2.5-3.5 for artificial heart valves and recurrent embolism.

INR SHOULD BE USED ONLY FOR PATIENTS ON STABLE ANTICOAGULANT THERAPY. [facility] HEMATOLOGY PT 25.8 12.0 - 14.7 10/31/2014 [facility] HEMATOLOGY PTT 55.8 22.9 - 35.8 10/31/2014 <sup>4</sup>Interpretive Data: Heparin Therapeutic Range: 57 - 92 Seconds [facility] HEMATOLOGY MCH 31.3 27.0 - 31.0 10/31/2014 [facility] HEMATOLOGY MCV 92.9 80.0 - 98.0 10/31/2014 [facility] HEMATOLOGY MCHC 33.7 32.0 - 36.0 10/31/2014 [facility] HEMATOLOGY RDW 14.2 11.5 - 14.5 10/31/2014 [facility] HEMATOLOGY MPV 9.4 7.4 - 10.4 10/31/2014 [facility] HEMATOLOGY Platelet 87 133 - 450 10/31/2014 [facility] HEMATOLOGY RBC 3.89 4.20 - 5.40 10/31/2014 [facility] HEMATOLOGY Hgb 12.2 12.0 - 16.0 10/31/2014 [facility] HEMATOLOGY Hct 36.1 36.0 - 48.0 10/31/2014 [facility] HEMATOLOGY WBC 4.7 3.7 - 10.4 10/31/2014 [facility] HEMATOLOGY Monocytes # 0.6 0.0 - 0.8 10/31/2014 [facility] HEMATOLOGY Eosinophils # 0.1 0.0 - 0.5 10/31/2014 [facility] HEMATOLOGY Basophils 0.4 0.0 - 1.0 10/31/2014 [facility] HEMATOLOGY Lymphocytes # 1.2 1.0 - 5.5 10/31/2014 [facility] HEMATOLOGY Segs-Bands # 2.8 1.5 - 8.1 10/31/2014 [facility] HEMATOLOGY Basophils # 0.0 0.0 - 0.2 10/31/2014 [facility] HEMATOLOGY Lymphocytes 25.5 20.0 - 40.0 10/31/2014 [facility] HEMATOLOGY Segs 58.1 45.0 - 75.0 10/31/2014 [facility] HEMATOLOGY Eosinophils 2.4 0.0 - 4.0 10/31/2014 [facility] HEMATOLOGY Monocytes 13.6 2.0 - 12.0 10/31/2014 [facility] CHEM PANEL A/G Ratio 0.8 0.7 - 1.6 10/11/2014 [facility] CHEM PANEL Globulin 4.2 2.0 - 4.0 10/11/2014 [facility] CHEM PANEL B/C Ratio 7 6 - 25 10/11/2014 [facility] CHEM PANEL AGAP 12.4 10.0 - 20.0 10/11/2014 [facility] CHEM PANEL eGFR 36 10/11/2014 <sup>1</sup>Result Comment: The eGFR is calculated using the CKD-EPI formula. In most young, healthy individuals the eGFR will be >90 mL/min/1.73m2. The eGFR declines with age. An eGFR of 60-89 may be normal in some populations, particularly the elderly, for whom the CKD-EPI formula has not been extensively validated. Use of the eGFR is not recommended in the following populations:& lt;br/>
Individuals with unstable creatinine concentrations, including patients and those with serious co-morbid conditions.

Patients with extremes in muscle mass or diet.

The data above are obtained from the National Kidney Disease Education Program (NKDEP) which additionally recommends that when the eGFR is used in patients with extremes of body mass index for purposes of drug dosing, the eGFR should be multiplied by the estimated BMI. [facility] CHEM PANEL Calcium Lvl 8.9 8.5 - 10.5 10/11/2014 [facility] CHEM PANEL Total Protein 7.7 6.4 - 8.4 10/11/2014 [facility] CHEM PANEL Albumin Lvl 3.5 3.5 - 5.0 10/11/2014 [facility] CHEM PANEL Alk Phos 219 39 - 136 10/11/2014 [facility] CHEM PANEL AST 20 0 - 37 10/11/2014 [facility] CHEM PANEL ALT 13 0 - 65 10/11/2014 [facility] CHEM PANEL Bili Total 1.6 0.2 - 1.3 10/11/2014 [facility] CHEM PANEL Chloride Lvl 99 95 - 109 10/11/2014 [facility] CHEM PANEL CO2 28 24 - 32 10/11/2014 [facility] CHEM PANEL Creatinine Lvl 1.4 0.5 - 1.4 10/11/2014 [facility] CHEM PANEL BUN 10 7 - 22 10/11/2014 [facility] CHEM PANEL Glucose Lvl 94 70 - 99 10/11/2014 <sup>4</sup>Interpretive Data: Adult reference range values reflect the clinical guidelines
of the [place]. [facility] CHEM PANEL Potassium Lvl 3.4 3.5 - 5.1 10/11/2014 [facility] CHEM PANEL Sodium Lvl 136 135 - 145 10/11/2014 [facility] CHEM PANEL Procalcitonin Lvl 0.25 0.00 - 0.10 10/11/2014 [facility] HEMATOLOGY MPV 9.8 7.4 - 10.4 10/11/2014 [facility] HEMATOLOGY MCHC 33.0 32.0 - 36.0 10/11/2014 [facility] HEMATOLOGY Platelet 169 133 - 450 10/11/2014 [facility] HEMATOLOGY RDW 15.7 11.5 - 14.5 10/11/2014 [facility] HEMATOLOGY Hct 37.3 36.0 - 48.0 10/11/2014 [facility] HEMATOLOGY MCV 92.7 80.0 - 98.0 10/11/2014 [facility] HEMATOLOGY MCH 30.6 27.0 - 31.0 10/11/2014 [facility] HEMATOLOGY WBC 8.5 3.7 - 10.4 10/11/2014 [facility] HEMATOLOGY Hgb 12.3 12.0 - 16.0 10/11/2014 [facility] HEMATOLOGY RBC 4.02 4.20 - 5.40 10/11/2014 [facility] HEMATOLOGY Monocytes # 1.1 0.0 - 0.8 10/11/2014 [facility] HEMATOLOGY Lymphocytes # 1.4 1.0 - 5.5 10/11/2014 [facility] HEMATOLOGY Eosinophils 0.4 0.0 - 4.0 10/11/2014 [facility] HEMATOLOGY Monocytes 13.0 2.0 - 12.0 10/11/2014 [facility] HEMATOLOGY Basophils 0.1 0.0 - 1.0 10/11/2014 [facility] HEMATOLOGY Lymphocytes 16.0 20.0 - 40.0 10/11/2014 [facility] HEMATOLOGY Segs-Bands # 6.0 1.5 - 8.1 10/11/2014 [facility] HEMATOLOGY Segs 70.5 45.0 - 75.0 10/11/2014 [facility] URINE AND STOOL UA Urobilinogen <=1.0 mg/dL 0.1 - 1.0 10/11/2014 [facility] URINE AND STOOL UA Spec Grav 1.006 <=1.030 10/11/2014 [facility] URINE AND STOOL UA Nitrite Negative (10/10/14 10:21 PM) Negative 10/11/2014 [facility] URINE AND STOOL UA pH 5.5 5.0 - 8.0 10/11/2014 [facility] URINE AND STOOL UA Protein Negative mg/dL Negative mg/dL 10/11/2014 [facility] URINE AND STOOL UA Mucus Few /LPF None Seen /LPF 10/11/2014 [facility] URINE AND STOOL UA RBC 5 0 - 2 10/11/2014 [facility] URINE AND STOOL UA Sq Epi Occasional /LPF Few /LPF 10/11/2014 [facility] URINE AND STOOL UA WBC <1 0 - 5 10/11/2014 [facility] URINE AND STOOL UA Leuk Est Negative (10/10/14 10:21 PM) Negative 10/11/2014 [facility] URINE AND STOOL UA Color Yellow *NA* (10/10/14 10:21 PM) Yellow 10/11/2014 [facility] URINE AND STOOL UA Turbidity Clear (10/10/14 10:21 PM) Clear 10/11/2014 [facility] URINE AND STOOL UA Ketones Negative mg/dL Negative mg/dL 10/11/2014 [facility] URINE AND STOOL UA Blood Trace *ABN* (10/10/14 10:21 PM) Negative 10/11/2014 [facility] URINE AND STOOL UA Bili Negative *NA* (10/10/14 10:21 PM) Negative 10/11/2014 [facility] URINE AND STOOL UA Glucose Negative mg/dL Negative mg/dL 10/11/2014 [facility] HEMATOLOGY Eosinophils # 0.2 0.0 - 0.5 10/10/2014 [facility] HEMATOLOGY Segs-Bands # 5.8 1.5 - 8.1 10/10/2014 [facility] HEMATOLOGY Lymphocytes # 1.4 1.0 - 5.5 10/10/2014 [facility] HEMATOLOGY Monocytes 11.0 2.0 - 12.0 10/10/2014 [facility] HEMATOLOGY Eosinophils 1.9 0.0 - 4.0 10/10/2014 [facility] HEMATOLOGY Monocytes # 0.9 0.0 - 0.8 10/10/2014 [facility] HEMATOLOGY Basophils 0.2 0.0 - 1.0 10/10/2014 [facility] HEMATOLOGY Lymphocytes 17.0 20.0 - 40.0 10/10/2014 [facility] HEMATOLOGY Segs 69.9 45.0 - 75.0 10/10/2014 [facility] HEMATOLOGY Platelet 154 133 - 450 10/10/2014 [facility] HEMATOLOGY MPV 9.8 7.4 - 10.4 10/10/2014 [facility] HEMATOLOGY Hct 35.6 36.0 - 48.0 10/10/2014 [facility] HEMATOLOGY MCV 92.2 80.0 - 98.0 10/10/2014 [facility] HEMATOLOGY MCH 30.5 27.0 - 31.0 10/10/2014 [facility] HEMATOLOGY MCHC 33.1 32.0 - 36.0 10/10/2014 [facility] HEMATOLOGY RDW 15.7 11.5 - 14.5 10/10/2014 [facility] HEMATOLOGY Hgb 11.8 12.0 - 16.0 10/10/2014 [facility] HEMATOLOGY WBC 8.3 3.7 - 10.4 10/10/2014 [facility] HEMATOLOGY RBC 3.86 4.20 - 5.40 10/10/2014 [facility] CARDIAC ENZYMES CK MB 0.6 0.5 - 3.6 10/09/2014 [facility] CARDIAC ENZYMES CK MB Index 0.4 0.0 - 2.5 10/09/2014 [facility] CARDIAC ENZYMES Troponin-T <0.010 0.000 - 0.100 10/09/2014 [facility] CARDIAC ENZYMES Total CK 148 12 - 191 10/09/2014 [facility] CARDIAC ENZYMES Troponin-I <0.02 0.00 - 0.40 10/09/2014 [facility] CARDIAC ENZYMES Total CK 159 12 - 191 10/09/2014 [facility] CARDIAC ENZYMES Troponin-I <0.02 0.00 - 0.40 10/09/2014 [facility] CARDIAC ENZYMES Troponin-T <0.010 0.000 - 0.100 10/09/2014 [facility] CARDIAC ENZYMES CK MB Index 0.4 0.0 - 2.5 10/09/2014 [facility] CARDIAC ENZYMES CK MB 0.7 0.5 - 3.6 10/09/2014 [facility] CARDIAC ENZYMES BNP 337 <=100 pg/mL 10/09/2014 <sup>7</sup>Interpretive Data: Elevated results are in line with increasing severity of
congestive heart failure. Minor elevations between 100 and 300
may be seen with Myocardial Ischemia, Sodium retaining drugs,
and compensated/treated heart failure. [facility] CHEM PANEL eGFR 44 10/09/2014 <sup>2</sup>Result Comment: The eGFR is calculated using the CKD-EPI formula. In most young, healthy individuals the eGFR will be >90 mL/min/1.73m2. The eGFR declines with age. An eGFR of 60-89 may be normal in some populations, particularly the elderly, for whom the CKD-EPI formula has not been extensively validated. Use of the eGFR is not recommended in the following populations:& lt;br/>
Individuals with unstable creatinine concentrations, including patients and those with serious co-morbid conditions.

Patients with extremes in muscle mass or diet.

The data above are obtained from the National Kidney Disease Education Program (NKDEP) which additionally recommends that when the eGFR is used in patients with extremes of body mass index for purposes of drug dosing, the eGFR should be multiplied by the estimated BMI. [facility] CHEM PANEL Calcium Lvl 8.3 8.5 - 10.5 10/09/2014 [facility] CHEM PANEL CO2 25 24 - 32 10/09/2014 [facility] CHEM PANEL Creatinine Lvl 1.2 0.5 - 1.4 10/09/2014 [facility] CHEM PANEL Potassium Lvl 3.9 3.5 - 5.1 10/09/2014 [facility] CHEM PANEL Chloride Lvl 109 95 - 109 10/09/2014 [facility] CHEM PANEL BUN 9 7 - 22 10/09/2014 [facility] CHEM PANEL Sodium Lvl 142 135 - 145 10/09/2014 [facility] CHEM PANEL Glucose Lvl 97 70 - 99 10/09/2014 <sup>5</sup>Interpretive Data: Adult reference range values reflect the clinical guidelines
of the [place] [employer]. [facility] CHEM PANEL AGAP 11.9 10.0 - 20.0 10/09/2014 [facility] HEMATOLOGY Lymphocytes # 1.5 1.0 - 5.5 10/09/2014 [facility] HEMATOLOGY Segs 72.3 45.0 - 75.0 10/09/2014 [facility] HEMATOLOGY Lymphocytes 17.6 20.0 - 40.0 10/09/2014 [facility] HEMATOLOGY Eosinophils 0.4 0.0 - 4.0 10/09/2014 [facility] HEMATOLOGY Basophils 0.3 0.0 - 1.0 10/09/2014 [facility] HEMATOLOGY Segs-Bands # 5.9 1.5 - 8.1 10/09/2014 [facility] HEMATOLOGY Monocytes # 0.8 0.0 - 0.8 10/09/2014 [facility] HEMATOLOGY Monocytes 9.4 2.0 - 12.0 10/09/2014 [facility] HEMATOLOGY Platelet 132 133 - 450 10/09/2014 [facility] HEMATOLOGY MPV 10.1 7.4 - 10.4 10/09/2014 [facility] HEMATOLOGY RDW 16.2 11.5 - 14.5 10/09/2014 [facility] HEMATOLOGY MCHC 32.5 32.0 - 36.0 10/09/2014 [facility] HEMATOLOGY Hct 32.2 36.0 - 48.0 10/09/2014 [facility] HEMATOLOGY MCH 30.5 27.0 - 31.0 10/09/2014 [facility] HEMATOLOGY RBC 3.44 4.20 - 5.40 10/09/2014 [facility] HEMATOLOGY MCV 93.8 80.0 - 98.0 10/09/2014 [facility] HEMATOLOGY WBC 8.2 3.7 - 10.4 10/09/2014 [facility] HEMATOLOGY Hgb 10.5 12.0 - 16.0 10/09/2014 [facility] HEMATOLOGY PT 24.3 12.0 - 14.7 10/09/2014 [facility] HEMATOLOGY PTT 50.7 22.9 - 35.8 10/09/2014 <sup>10</sup>Interpretive Data: Heparin Therapeutic Range: 57 - 92 Seconds [facility] HEMATOLOGY INR 2.12 0.85 - 1.17 10/09/2014 <sup>8</sup>Interpretive Data: RECOMMENDED RANGES FOR PROTIME INR:
2.0-3.0 for most medical and surgical thromboembolic states.
2.5-3.5 for artificial heart valves and recurrent embolism.

INR SHOULD BE USED ONLY FOR PATIENTS ON STABLE ANTICOAGULANT THERAPY. [facility] THYROID PANEL TSH 2.440 0.360 - 3.740 10/09/2014 [facility] CHEM PANEL eGFR 44 10/08/2014 <sup>3</sup>Result Comment: The eGFR is calculated using the CKD-EPI formula. In most young, healthy individuals the eGFR will be >90 mL/min/1.73m2. The eGFR declines with age. An eGFR of 60-89 may be normal in some populations, particularly the elderly, for whom the CKD-EPI formula has not been extensively validated. Use of the eGFR is not recommended in the following populations:& lt;br/>
Individuals with unstable creatinine concentrations, including patients and those with serious co-morbid conditions.

Patients with extremes in muscle mass or diet.

The data above are obtained from the National Kidney Disease Education Program (NKDEP) which additionally recommends that when the eGFR is used in patients with extremes of body mass index for purposes of drug dosing, the eGFR should be multiplied by the estimated BMI. [facility] CHEM PANEL Sodium Lvl 142 135 - 145 10/08/2014 [facility] CHEM PANEL Potassium Lvl 3.8 3.5 - 5.1 10/08/2014 [facility] CHEM PANEL Calcium Lvl 9.0 8.5 - 10.5 10/08/2014 [facility] CHEM PANEL Total Protein 6.9 6.4 - 8.4 10/08/2014 [facility] CHEM PANEL Chloride Lvl 108 95 - 109 10/08/2014 [facility] CHEM PANEL CO2 20 24 - 32 10/08/2014 [facility] CHEM PANEL BUN 9 7 - 22 10/08/2014 [facility] CHEM PANEL Creatinine Lvl 1.2 0.5 - 1.4 10/08/2014 [facility] CHEM PANEL Glucose Lvl 98 70 - 99 10/08/2014 <sup>6</sup>Interpretive Data: Adult reference range values reflect the clinical guidelines
of the [place] [employer]. [facility] CHEM PANEL AGAP 17.8 10.0 - 20.0 10/08/2014 [facility] CHEM PANEL A/G Ratio 0.9 0.7 - 1.6 10/08/2014 [facility] CHEM PANEL Globulin 3.6 2.0 - 4.0 10/08/2014 [facility] CHEM PANEL B/C Ratio 8 6 - 25 10/08/2014 [facility] CHEM PANEL Albumin Lvl 3.3 3.5 - 5.0 10/08/2014 [facility] CHEM PANEL Alk Phos 202 39 - 136 10/08/2014 [facility] CHEM PANEL Bili Total 0.6 0.2 - 1.3 10/08/2014 [facility] CHEM PANEL ALT 19 0 - 65 10/08/2014 [facility] CHEM PANEL AST 20 0 - 37 10/08/2014 [facility] HEMATOLOGY Eosinophils # 0.1 0.0 - 0.5 10/08/2014 [facility] LIPIDS HDL 43 >=61 mg/dL 10/08/2014 [facility] LIPIDS Chol 141 <=199 mg/dL 10/08/2014 [facility] LIPIDS Trig 122 <=149 mg/dL 10/08/2014 [facility] LIPIDS CHD Risk 3.28 3.90 - 5.80 10/08/2014 [facility] LIPIDS VLDL 24 10/08/2014 [facility] LIPIDS LDL (Calculated) 74 <=99 mg/dL 10/08/2014 [facility] SPECIAL CHEMISTRY Hgb A1C 5.8 <=5.6 % 10/08/2014 [facility] URINE AND STOOL UA Bili Negative *NA* (10/08/14 2:29 AM) Negative 10/08/2014 [facility] URINE AND STOOL UA Ketones Negative mg/dL Negative mg/dL 10/08/2014 [facility] URINE AND STOOL UA Urobilinogen 2.0 0.1 - 1.0 10/08/2014 [facility] URINE AND STOOL UA Blood Moderate *ABN* (10/08/14 2:29 AM) Negative 10/08/2014 [facility] URINE AND STOOL UA Sq Epi Occasional /LPF Few /LPF 10/08/2014 [facility] URINE AND STOOL UA Leuk Est Negative (10/08/14 2:29 AM) Negative 10/08/2014 [facility] URINE AND STOOL UA RBC 92 0 - 2 10/08/2014 [facility] URINE AND STOOL UA WBC 1 0 - 5 10/08/2014 [facility] URINE AND STOOL UA Nitrite Negative (10/08/14 2:29 AM) Negative 10/08/2014 [facility] URINE AND STOOL UA Turbidity Clear (10/08/14 2:29 AM) Clear 10/08/2014 [facility] URINE AND STOOL UA pH 7.5 5.0 - 8.0 10/08/2014 [facility] URINE AND STOOL UA Spec Grav 1.038 <=1.030 10/08/2014 [facility] URINE AND STOOL UA Glucose Negative mg/dL Negative mg/dL 10/08/2014 [facility] URINE AND STOOL UA Protein Negative mg/dL Negative mg/dL 10/08/2014 [facility] URINE AND STOOL UA Color Yellow *NA* (10/08/14 2:29 AM) Yellow 10/08/2014 [facility] URINE AND STOOL UA Nitrite Negative (10/07/14 7:32 PM) Negative 10/08/2014 [facility] URINE AND STOOL UA Urobilinogen 0.2 0.1 - 1.0 10/08/2014 [facility] URINE AND STOOL UA Leuk Est Negative (10/07/14 7:32 PM) Negative 10/08/2014 [facility] URINE AND STOOL UA Blood Negative (10/07/14 7:32 PM) Negative 10/08/2014 [facility] URINE AND STOOL UA Ketones Negative mg/dL Negative mg/dL 10/08/2014 [facility] URINE AND STOOL UA Bili Negative *NA* (10/07/14 7:32 PM) Negative 10/08/2014 [facility] URINE AND STOOL UA Glucose Negative mg/dL Negative mg/dL 10/08/2014 [facility] URINE AND STOOL UA Protein Negative mg/dL Negative mg/dL 10/08/2014 [facility] URINE AND STOOL UA Spec Grav 1.010 <=1.030 10/08/2014 [facility] URINE AND STOOL UA Turbidity Clear (10/07/14 7:32 PM) Clear 10/08/2014 [facility] URINE AND STOOL UA Color Yellow *NA* (10/07/14 7:32 PM) Yellow 10/08/2014 [facility] URINE AND STOOL UA pH 7.0 5.0 - 8.0 10/08/2014 [facility] URINE AND STOOL UA Sq Epi Rare /LPF Few /LPF 10/08/2014 [facility] CARDIAC ENZYMES Troponin-I <0.02 0.00 - 0.40 10/07/2014 [facility] CARDIAC ENZYMES CK MB 0.9 0.5 - 3.6 10/07/2014 [facility] CARDIAC ENZYMES Total CK 213 12 - 191 10/07/2014 [facility] CARDIAC ENZYMES CK MB Index 0.4 0.0 - 2.5 10/07/2014 [facility] HEMATOLOGY PTT 42.7 22.9 - 35.8 10/07/2014 <sup>11</sup>Interpretive Data: Heparin Therapeutic Range: 57 - 92 Seconds [facility] HEMATOLOGY PT 16.7 12.0 - 14.7 10/07/2014 [facility] HEMATOLOGY INR 1.34 0.85 - 1.17 10/07/2014 <sup>9</sup>Interpretive Data: RECOMMENDED RANGES FOR PROTIME INR:
2.0-3.0 for most medical and surgical thromboembolic states.
2.5-3.5 for artificial heart valves and recurrent embolism.

INR SHOULD BE USED ONLY FOR PATIENTS ON STABLE ANTICOAGULANT THERAPY. [facility] HEMATOLOGY Plt Morph Normal (10/07/14 6:43 PM) 10/07/2014 [facility] HEMATOLOGY RBC Morph Normal (10/07/14 6:43 PM) 10/07/2014 [facility] HEMATOLOGY Atypical Lymphs 0.0 <=0.0 % 10/07/2014 [facility] HEMATOLOGY Bands 0.0 0.0 - 11.0 10/07/2014 [facility] HEMATOLOGY Eosinophils # 0.2 0.0 - 0.5 10/07/2014 [facility] Pathology Reports No Data Provided for This Section Diagnostic Reports Report Value Date Source Brain wo contrast CT Clinical Indication: - TIA, STROKE Comparison: Processes made to CT study of 10/24/2015 TECHNIQUE: CT images were obtained from the foramen magnum to the vertex without the use of intravenous contrast on a multidetector CT. Coronal and sagittal reconstructions were obtained. CT radiation dose DLP: 804 mGy-cm FINDINGS: BRAIN PARENCHYMA: There is calcification the globus pallidus. There is minimal to moderate brain parenchymal atrophy related to the patient's age. Moderate nonspecific periventricular white matter disease changes are noted. Atherosclerotic calcifications are present within the carotid siphons and distal vertebral arteries. There are no focal mass lesions on this noncontrast head CT. There is no mass effect, midline shift or edema. There are no intra-axial or extra-axial fluid collections, intraventricular or intraparenchymal hemorrhage. There is no noncontrast CT evidence of a subacute stroke. The pineal, sellar, brainstem, cerebellum and skull base regions appear unremarkable. VENTRICLES: The lateral ventricles, third and fourth ventricles appear unremarkable. The basilar cisterns are normal. ORBITS, MASTOIDS AND PARANASAL SINUSES: The visualized orbits and paranasal sinuses are unremarkable. The mastoid air cells are clear. SKULL: There are no calvarial abnormalities seen. If there is further concern for intracranial pathology or acute stroke, MRI of the brain may be performed for complete assessment. IMPRESSION: Chronic age-related and small vessel ischemic changes without mass, hemorrhage or subacute stroke. Findings are stable. SL: [id number] 08/03/2018 [facility] 2 views DX Patient Name: IWONA ISIDRO : 1935; Age: 83 years y/o Female MR: [id number] CHEST, 2 views HISTORY: Status post placement of transvenous pacemaker yesterday. COMPARISON: Yesterday's initial post placement study. TECHNIQUE: Frontal and lateral radiographs of the chest were obtained. IMPRESSION: 1. Stable appearance of the left sublavian multiple lead transvenous pacemaker 2. There is no evidence of pneumothorax or other complication following placement. 3. No evidence of an active or acute process. The lungs are clear. There are no pleural effusions. 4. Mild cardiomegaly. There has been improvement in the pulmonary vascular congestion from yesterday. 5. Poststernotomy changes. 6. The regional skeleton is unremarkable. SL: [id number] 07/17/2018 [facility] 1 v for Placement DX EXAM: XR CHEST SINGLE VIEW HISTORY: 83 years old Female with Line Placement - Status post PPM/ICD Implantation TECHNIQUE: A single AP view of the chest was obtained. COMPARISON: Chest radiograph 04/17/2017 FINDINGS: The cardiomediastinal silhouette is enlarged. Mild interstitial prominence. Coronary stents noted. No definite pneumothorax is seen. No acute osseous abnormality is evident. Left subclavian 3 chamber pacer noted. Sternotomy wires present. IMPRESSION: 1. Left subclavian 3 chamber pacer present. 2. Cardiomegaly with mild interstitial prominence suggestive of mild congestion. SL: [id number] 07/16/2018 [facility] unilateral DX EXAM: Ribs unilateral DX, Chest 2 views DX HISTORY: - left lower rib series COMPARISON: None PA and lateral chest. Left rib series. Median sternotomy and pacing leads again noted. Stable appearance of the spine. No definite rib fracture. No effusion or pneumothorax. IMPRESSION: No acute abnormality. 04/17/2017 [facility] Chest 2 views DX EXAM: Ribs unilateral DX, Chest 2 views DX HISTORY: - left lower rib series COMPARISON: None PA and lateral chest. Left rib series. Median sternotomy and pacing leads again noted. Stable appearance of the spine. No definite rib fracture. No effusion or pneumothorax. IMPRESSION: No acute abnormality. 04/17/2017 [facility] Chest 1view DX EXAM: XR CHEST 1 VIEW DATE: 10/24/2015 4:14 PM CDT INDICATION: Absent of breath sounds COMPARISON: Earlier same day. TECHNIQUE: AP chest FINDINGS: Lines, tubes and hardware: Stable left chest wall pacemaker. Median sternotomy wires are again noted. Lungs and pleura: No pulmonary or pleural based abnormality is identified. Heart and mediastinum: The heart is enlarged but stable. The mediastinal contours are normal. Bones: No acute bony abnormality is identified. IMPRESSION: No acute changes. Cardiomegaly. 10/24/2015 [facility] Chest 1view DX EXAM: XR CHEST 1 VIEW DATE: 10/24/2015 5:59 AM CDT INDICATION: Dyspnea COMPARISON: Chest dated 04/14/2015. TECHNIQUE: AP chest FINDINGS: Lines, tubes and hardware: Left chest wall AICD remains in place. Median sternotomy wires are again noted. Lungs and pleura: There is left basilar subsegmental atelectasis. Otherwise, no pulmonary or pleural based abnormality is identified. Heart and mediastinum: The heart is enlarged but stable. The mediastinal contours are normal. Bones: No acute bony abnormality is identified. IMPRESSION: 1. No acute cardiopulmonary abnormality. 2. Left basilar subsegmental atelectasis. 3. Stable cardiomegaly. 10/24/2015 [facility] Brain wo contrast CT EXAM: CT BRAIN WITHOUT CONTRAST DATE: 10/24/2015 5:48 AM CDT INDICATION: Altered level of consciousness COMPARISON: CT head from 10/08/2014 TECHNIQUE: Routine axial CT images of the brain were obtained IV contrast: None. FINDINGS: The sulci and the ventricles are prominent consistent with age-related volume loss, (80 years old). Minimal patchy hypodensities are seen in the deep white matter related to chronic microvascular ischemic changes. The devlin-white matter differentiation is preserved. No evidence of intracranial bleeds. No parenchymal lesions are present. Mineralization of the globus pallidus is seen on both sides incidental. The paranasal sinuses, orbits and mastoids are unremarkable. IMPRESSION: Diffuse volume loss, age related with minimal chronic microvascular ischemic changes. No evidence of acute intracranial abnormalities. Preliminary Emergency Room read: Creator: Nydia Root Date: Oct 24, 2015 06:11:21 Subject: No acute intracranial abnormality or interval change since 10/08/14 I agree with the preliminary read. 10/24/2015 [facility] Chest 1view DX EXAM: CHEST 1 VIEW DATE: Apr 14, 2015 10:25:00 PM INDICATION: Shallow breathing COMPARISON: Chest radiograph 02/02/2015 TECHNIQUE: Single AP view of the chest FINDINGS: Cardiomegaly is unchanged. Sternotomy wires are noted. Left subclavian dual-lead pacemaker present. There is small left pleural effusion with left basilar pulmonary opacities. Mild right midlung subsegmental atelectasis is present. IMPRESSION: Small left pleural effusion with left basilar pulmonary opacities representing atelectasis and/or consolidation. 04/14/2015 [facility] Chest 2 views DX EXAM: XR CHEST 2 VIEWS DATE: February 02, 2015 at 1350 INDICATION: Dyspnea without fever elevated white count COMPARISON: Chest x-ray performed on December 02, 2014 at 2023 TECHNIQUE: Frontal and lateral chest radiographs DISCUSSION: Left lung compressive atelectasis is again identified, slightly improved from the CXR performed on December 02, 2014. The pleural effusion has resolved on the right, while some fluid is present on the left. No pulmonary or pleural based abnormality. Pulmonary vascularity is normal. The heart is enlarged. No acute bony abnormality. The left subclavian pacemaker, coronary artery stent, and median sternotomy wires are unchanged from the prior radiograph. IMPRESSION: Left lung compressive atelectasis. Interval resolution of the right pleural effusion. Improvement of the left pleural effusion. No other acute cardiopulmonary abnormality. 02/02/2015 [facility] Chest 1view DX EXAM: XR CHEST 1 VIEW DATE: December 03, 2014 08:50:00 AM INDICATION: Abnormal chest sounds COMPARISON: chest radiograph yesterday. TECHNIQUE: Single AP view of the chest DISCUSSION: The left retrocardiac opacity is not significantly changed and likely represents a combination of left pleural effusion, subsegmental atelectasis and/or consolidation. The right pleural effusion has decreased in size since yesterday. A small amount of fluid remains in the right minor fissure. The left AICD, cardiac stent and median sternotomy wires are unchanged. The cardiomediastinal silhouette is enlarged, stable. No acute bony abnormality. IMPRESSION: 1. Stable left retrocardiac opacity is likely a combination of left pleural effusion, subsegmental atelectasis and/or consolidation. 2. Decreased size of right pleural effusion 12/03/2014 [facility] Chest 2 views DX EXAM: XR CHEST 2 VIEWS DATE: 2014-12-02 20:23:00 INDICATION: Chest pain COMPARISON: Chest radiograph dated 10/30/2014 TECHNIQUE: Frontal and lateral chest radiographs DISCUSSION: There are bilateral pleural effusions with which are new compared to prior radiograph. Underlying these pleural effusions are pulmonary opacities likely representing compressive atelectasis. Pulmonary vascularity is normal. The cardiomediastinal silhouette is normal. No acute bony abnormality is identified. The left subclavian access 2-lead pacemaker, coronary artery stent, and median sternotomy wires show unchanged appearance from prior radiograph. IMPRESSION: New bilateral pleural effusions with underlying compressive atelectasis. 12/02/2014 [facility] Chest 2 views DX EXAM: CHEST 2 VIEWS DATE: Oct 30, 2014 08:45:20 PM INDICATION: Fever COMPARISON: None available. TECHNIQUE: Frontal and lateral chest radiographs FINDINGS: Sternotomy wires are present. The heart is mildly enlarged. Left subclavian dual lead pacemaker present. There is mild left basilar and right midlung subsegmental atelectasis. Blunting of the left costophrenic sulcus present. No consolidation identified. There is mild chronic wedging of a few of the inferior thoracic vertebral bodies. IMPRESSION: 1. Mild left basilar and right midlung subsegmental atelectasis. No consolidation identified 2. Small left pleural effusion versus pleural thickening. 10/30/2014 [facility] Chest 1view DX CHEST ONE VIEW, OCTOBER 11, 2014 AT 2:49 A.M. HISTORY: 79-year-old female with crackles. FINDINGS: Comparison is made to October 09. The cardiomediastinal silhouette and postoperative changes are stable with a bipolar left subclavian pacemaker in place. A left pleural effusion obscures the left lower lobe and cardiac margin. There is a left retrocardiac opacity which may be due to a layering left pleural effusion and/or a left lower lobe air space opacity such as pneumonia or atelectasis. Subsegmental atelectasis is seen in the right mid to lower lung. IMPRESSION: No significant change since October 09. 10/11/2014 [facility] Chest 1view DX Portable ap semierect chest 10/09/2014 HISTORY: Pleural effusion. Comparison is made with October 07. FINDINGS: Cardiomediastinal silhouette, postoperative changes and pacemaker leads are stable. There are bilateral pleural effusions. No pneumothorax is identified, however, a supine film is suboptimal for that determination. An erect film of the chest is suggested in order to more accurately exclude a pneumothorax. There is platelike atelectasis at the right lung base. There is a left retrocardiac opacity which obliterates the silhouette of the descending thoracic aorta and the left hemidiaphragm. This opacity represents, singly or in combination, layering left pleural effusion with or without left lower lobe consolidation or atelectasis. The upper lungs are clear. CONCLUSION: New platelike atelectasis at the right lung base and new left retrocardiac opacity compared to October 07. 10/09/2014 [facility] Brain wo contrast CT EXAMINATION: CT head without contrast. DATE: 10/08/2014. INDICATION: Weakness. DISCUSSION: Noncontrast images the head are compared to a study dated 10/07/2014. There has been no important change. There is no edema, hemorrhage, or other acute abnormality. The cerebellar hemispheres are unremarkable in appearance. There is moderate generalized volume loss, unremarkable for age. The paranasal sinuses are clear. Atherosclerotic calcifications are noted. IMPRESSION: Stable negative exam. 10/08/2014 [facility] Brain/Neck CTA EXAM: CTA NECK EXAM: CTA BRAIN INDICATION: Weakness, stroke COMPARISON: CT brain of the same day TECHNIQUE Rapid acquisition spiral images were obtained following the intravenous administration of 85 cc Visipaque. 3D MIP reconstructions were performed. DISCUSSION: CTA BRAIN: No proximal occlusion, flow limiting stenosis or aneurysm is identified intracranially. CTA NECK: No stenosis within the right internal carotid artery stent. No significant stenosis at the proximal internal carotid arteries. Postoperative changes of left carotid endarterectomy. Right external carotid artery shows no opacification proximally. Vertebral arteries are codominant. 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 Segmental mild to moderate stenosis of the left vertebral artery at the level of C2 and C1. Occlusion of the left vertebral artery as it enters into its intradural segment with irregular contour of its distal segment intracranially. Proximal segment of left PICA is patent. Irregular contour of the right vertebral artery as it enters into its intradural segment. Bilateral pleural effusions. IMPRESSION: 1. 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 2. Otherwise no proximal occlusion, flow-limiting stenosis or aneurysm is identified intracranially. 3. No stenosis within the right internal carotid artery stent. No stenosis at the proximal internal carotid arteries. 4. Age indeterminate occlusion of the proximal segment of the right vertebral artery. All quantitative and qualitative assessments of carotid bifurcation and proximal internal carotid artery stenosis are made at referencing the distal internal carotid artery. 10/07/2014 [facility] Brain Stroke wo contrast CT EXAM: CT HEAD WITHOUT CONTRAST INDICATION: Focal neurological deficit COMPARISON: None TECHNIQUE: Contiguous axial images of the brain are obtained from skull base to vertex without administration of intravenous contrast. DISCUSSION: There is no intracranial hemorrhage, space occupying mass or mass effect. Questionable early ischemic changes in the right frontal operculum without mass effect. Generalized parenchymal volume loss. No hydrocephalus Visualized paranasal sinuses and tympanomastoid cavities are clear. Calvarium is intact. IMPRESSION: Questionable early ischemic changes in the right frontal operculum. No hemorrhage. No mass effect. 10/07/2014 [facility] Chest 1view DX EXAM: XR CHEST 1 VIEW DATE: 10/07/2014 at 1927 hours. INDICATION: Focal neurological deficit COMPARISON: None. TECHNIQUE: Single AP view of the chest DISCUSSION: The patient is status post median sternotomy. A pacemaker is seen overlying the soft tissues of the left hemithorax with two central venous leads present, the first overlying the right atrium, and the second overlying the right ventricle. The lungs display low lung volumes. The cardiomediastinal silhouette is prominent; however, this could be spurious widening secondary to semierect technique. There is blunting of the left costophrenic sulcus, consistent with a small moderate left-sided pleural effusion. There is also a left retrocardiac opacity which may represent singly, or in combination, a left pleural effusion, subsegmental atelectasis or consolidation. No acute bony abnormality is identified. Small linear radiopaque objects are seen overlying the upper thorax, which may represent postsurgical changes. IMPRESSION: 1. Tblvn-wy-pozajnvc left-sided pleural effusion. 2. Left-sided retrocardiac opacity which may represent a left-sided pleural effusion, subsegmental atelectasis or consolidation. 3. Prominent cardiomediastinal silhouette which may be spurious widening secondary to technique. 10/07/2014 [facility] Consultation Notes No Data Provided for This Section Discharge Summaries No Data Provided for This Section History and Physicals No Data Provided for This Section Vital Signs Vital Sign Value Date Comments Source Systolic (mm Hg) 136 10/25/2015 [facility] Diastolic (mm Hg) 71 10/25/2015 [facility] Respitory Rate 18 10/25/2015 [facility] Heart Rate 63 10/25/2015 [facility] Temperature Oral (F) 96.9 F 10/25/2015 [facility] Systolic (mm Hg) 133 10/25/2015 [facility] Diastolic (mm Hg) 63 10/25/2015 [facility] Respitory Rate 16 10/25/2015 [facility] Heart Rate 70 10/25/2015 [facility] Temperature Oral (F) 97.2 F 10/25/2015 [facility] Respitory Rate 16 10/25/2015 [facility] Systolic (mm Hg) 131 10/25/2015 [facility] Diastolic (mm Hg) 60 10/25/2015 [facility] Temperature Oral (F) 97.5 F 10/25/2015 [facility] Heart Rate 61 10/25/2015 [facility] BMI Calculated 28.38 10/24/2015 [facility] Weight 65.909 10/24/2015 [facility] Height 152.4 cm 10/24/2015 [facility] BMI Calculated 26.51 10/24/2015 [facility] Weight 63.636 10/24/2015 [facility] Height 154.94 cm 10/24/2015 [facility] Temperature Oral (F) 97.5 F 04/15/2015 [facility] Respitory Rate 18 04/15/2015 [facility] Heart Rate 61 04/15/2015 [facility] Systolic (mm Hg) 131 04/15/2015 [facility] Diastolic (mm Hg) 66 04/15/2015 [facility] Respitory Rate 21 04/15/2015 [facility] Systolic (mm Hg) 136 04/15/2015 [facility] Diastolic (mm Hg) 63 04/15/2015 [facility] Heart Rate 64 04/15/2015 [facility] Heart Rate 62 04/15/2015 [facility] Systolic (mm Hg) 122 04/15/2015 [facility] Diastolic (mm Hg) 84 04/15/2015 [facility] Respitory Rate 19 04/15/2015 [facility] Weight 65.909 04/15/2015 [facility] Height 152.4 cm 04/15/2015 [facility] Temperature Oral (F) 97.7 F 04/15/2015 [facility] BMI Calculated 28.38 04/15/2015 [facility] Systolic (mm Hg) 141 02/02/2015 [facility] Diastolic (mm Hg) 67 02/02/2015 [facility] Respitory Rate 17 02/02/2015 [facility] Systolic (mm Hg) 141 02/02/2015 [facility] Diastolic (mm Hg) 65 02/02/2015 [facility] Respitory Rate 27 02/02/2015 [facility] Temperature Oral (F) 98.1 F 02/02/2015 [facility] Respitory Rate 23 02/02/2015 [facility] Systolic (mm Hg) 133 02/02/2015 [facility] Diastolic (mm Hg) 62 02/02/2015 [facility] Weight 65.909 02/02/2015 [facility] Heart Rate 64 02/02/2015 [facility] Temperature Oral (F) 98.0 F 02/02/2015 [facility] Systolic (mm Hg) 155 11/29/2014 [facility] Diastolic (mm Hg) 85 11/29/2014 [facility] Temperature Oral (F) 97.6 F 11/29/2014 [facility] Respitory Rate 20 11/29/2014 [facility] Heart Rate 82 11/29/2014 [facility] Temperature Oral (F) 97.8 F 11/29/2014 [facility] Systolic (mm Hg) 136 11/29/2014 [facility] Diastolic (mm Hg) 79 11/29/2014 [facility] Heart Rate 69 11/29/2014 [facility] Respitory Rate 20 11/29/2014 [facility] Height 152.4 cm 11/29/2014 [facility] Weight 90.909 11/29/2014 [facility] BMI Calculated 39.14 11/29/2014 [facility] Systolic (mm Hg) 140 10/31/2014 [facility] Diastolic (mm Hg) 64 10/31/2014 [facility] Respitory Rate 22 10/31/2014 [facility] Respitory Rate 23 10/31/2014 [facility] Systolic (mm Hg) 172 10/31/2014 [facility] Diastolic (mm Hg) 77 10/31/2014 [facility] Respitory Rate 19 10/31/2014 [facility] Weight 68.002 10/30/2014 [facility] Temperature Oral (F) 98.7 F 10/30/2014 [facility] Heart Rate 83 10/30/2014 [facility] Systolic (mm Hg) 136 10/30/2014 [facility] Diastolic (mm Hg) 77 10/30/2014 [facility] Heart Rate 83 10/12/2014 [facility] Temperature Oral (F) 97.8 F 10/12/2014 [facility] Respitory Rate 20 10/12/2014 [facility] Systolic (mm Hg) 147 10/12/2014 [facility] Diastolic (mm Hg) 80 10/12/2014 [facility] Systolic (mm Hg) 129 10/12/2014 [facility] Diastolic (mm Hg) 73 10/12/2014 [facility] Respitory Rate 20 10/12/2014 [facility] Temperature Oral (F) 98.1 F 10/12/2014 [facility] Heart Rate 72 10/12/2014 [facility] Temperature Oral (F) 97.7 F 10/12/2014 [facility] Systolic (mm Hg) 128 10/12/2014 [facility] Diastolic (mm Hg) 74 10/12/2014 [facility] Heart Rate 71 10/12/2014 [facility] Respitory Rate 20 10/12/2014 [facility] Weight 75 10/08/2014 [facility] BMI Calculated 30.24 10/08/2014 [facility] Height 157.48 cm 10/08/2014 [facility] Weight 70.455 10/07/2014 [facility] BMI Calculated 30.33 10/07/2014 [facility] Height 152.4 cm 10/07/2014 [facility] Encounters Location Location Details Encounter Type Encounter Number Reason For Visit Attending Provider ADM Date DC Date Status Source [facility] Inpatient [id number] Mc Coe 10/07/2014 10/12/2014 [facility] [id number] Laurel Worthy 10/30/2014 10/31/2014 [facility] [id number] Veronica Romoson 11/29/2014 11/30/2014 [facility] [id number] Griffin Juan 02/02/2015 02/02/2015 [facility] [id number] Margot Wallacegirish 04/15/2015 04/15/2015 [facility] OBS Observation Patient [id number] Earl SamanoEarle 10/24/2015 10/25/2015 [facility] [place] [facility] [id number] Layo De Los Santos 04/17/2017 04/18/2017 [facility] [place] [facility] Outpatient [id number] Erick Vázquez 08/03/2018 08/04/2018 [facility] Procedures Procedure Code Date Perfomer Comments Source CABG - Coronary artery bypass graft [id number] [facility] Cardiac pacemaker procedure [id number] [facility] CABG - Coronary artery bypass graft [id number] [facility] catheter[facility] [id number] [facility] Cardiac pacemaker procedure [id number] [facility] CEIOL - Cataract extraction and insertion of intraocular lens [id number] [facility] section [id number] [facility] Colonoscopy [id number] [facility] Insertion of carotid artery stent [id number] [facility] CABG - Coronary artery bypass graft [id number] [facility] [place] Cardiac pacemaker procedure [id number] [facility] [place] Assessment and Plan Assessment and Plan Date Source Extracted from:Title: Hospitalist History and Physical Author: Earl Og MD Date: 10/24/15 Assessment/Plan 1.H/o CHF Diastolic dysfunction, ischemic, EF 60-65% per echo 10/22 - c/w ASA, statin and BB 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 - c/w ASA, statin and BB 3.Hx of completed stroke old, s/p CEA, history is concerning for repeat CVA - new MRI will happen when MRI is able to complete the study 4.Confusion CT head negative, MRI cannot be done / the type of AICD 5.Cirrhosis has not been compliant with her lactulose; it is possible that her acute confusion was related to hepatic encephalopathy - ammonia, PT, and CMP - lactulose 30ml TID 6.Atrial fibrillation on xarelto 7.Hypothyroid TSH and free t3 now - c/w home levothyroxine Orders: acetaminophen, 650 mg, 2 tab, Route: PO, Drug form: TAB, Q4H, Dosing Weight 63.636, kg, PRN Pain 1-3/Temp > 100.4 F, Start date: 10/24/15 11:51:00 CDT, Duration: 30 day, Stop date: 11/23/15 11:50:00 CDT amLODIPine, 5 mg=1 tab, PO, Daily, Afghan, # 90 tab, 0 Refill(s) amLODIPine, 5 mg, 1 tab, Route: PO, Drug form: TAB, Daily, Dosing Weight 63.636, kg, Start date: 10/25/15 9:00:00 CDT, Duration: 30 day, Stop date: 11/23/15 9:00:00 CDT ascorbic acid, 500 mg=1 tab, PO, Daily, Afghan, # 90 tab, 0 Refill(s) ascorbic acid, 500 mg, 1 tab, Route: PO, Drug form: TAB, Daily, Dosing Weight 63.636, kg, Start date: 10/25/15 9:00:00 CDT, Duration: 30 day, Stop date: 11/23/15 9:00:00 CDT aspirin, 81 mg=1 tab, PO, Daily, Afghan, # 90 tab, 0 Refill(s) aspirin, 81 mg, 1 tab, Route: PO, Drug form: ECTAB, Daily, Dosing Weight 63.636, kg, Start date: 10/25/15 9:00:00 CDT, Duration: 30 day, Stop date: 11/23/15 9:00:00 CDT atorvastatin, 20 mg=1 tab, PO, Bedtime, Afghan, # 90 tab, 0 Refill(s) atorvastatin, 20 mg, 1 tab, Route: PO, Drug form: TAB, Bedtime, Dosing Weight 63.636, kg, Start date: 10/24/15 21:00:00 CDT, Duration: 30 day, Stop date: 11/22/15 21:00:00 CDT carvedilol, 12.5 mg=1 tab, PO, BID, Afghan, # 120 tab, 0 Refill(s) carvedilol, 12.5 mg, 1 tab, Route: PO, Drug form: TAB, BID, Dosing Weight 63.636, kg, Start date: 10/24/15 17:00:00 CDT, Duration: 30 day, Stop date: 11/23/15 9:00:00 CDT furosemide, 40 mg=1 tab, PO, BID, (water pill), Afghan, # 90 caplet, 0 Refill(s) furosemide, 40 mg, 1 tab, Route: PO, Drug form: TAB, BID, Dosing Weight 63.636, kg, Start date: 10/24/15 17:00:00 CDT, Duration: 30 day, Stop date: 11/23/15 9:00:00 CDT lactulose, 30 ml, Route: PO, Drug Form: SYRP, Dosing Weight 63.636, kg, TID, Start date: 10/24/15 17:00:00 CDT, Duration: 30 day, Stop date: 11/23/15 13:00:00 CDT levothyroxine, 100 microgram=1 tab, PO, QAM, Afghan, # 90 tab, 0 Refill(s) levothyroxine, 100 microgram, 1 tab, Route: PO, Drug form: TAB, Before Breakfast, Dosing Weight 63.636, kg, Start date: 10/25/15 7:30:00 CDT, Duration: 30 day, Stop date: 11/23/15 7:30:00 CDT omeprazole, 40 mg=1 cap, PO, Daily, Afghan, # 90 cap, 0 Refill(s) pantoprazole, 40 mg, 1 tab, Route: PO, Drug form: ECTAB, Before Dinner, Start date: 10/24/15 16:30:00 CDT, Duration: 30 day, Stop date: 11/22/15 16:30:00 CDT propafenone, 150 mg=1 tab, PO, Q8H, Afghan, # 90 tab, 0 Refill(s) propafenone, 150 mg, 1 tab, Route: PO, Drug form: TAB, Q8H, Dosing Weight 63.636, kg, Start date: 10/24/15 16:00:00 CDT, Duration: 30 day, Stop date: 11/23/15 8:00:00 CDT rivaroxaban, 15 mg=1 tab, PO, QPM, Afghan, # 90 tab, 0 Refill(s) rivaroxaban, 15 mg, 1 tab, Route: PO, Drug form: TAB, QPM, Dosing Weight 63.636, kg, Start date: 10/24/15 17:00:00 CDT, Duration: 30 day, Stop date: 11/22/15 17:00:00 CDT Admit / Condition Ambulation Ambulation Ammonia Level B-Type Natriuretic Peptide Brain wo contrast MRI CDM Admission Acute Care Post ED Chest 1view DX Complete Blood Count w/ Diff and Platelet Comprehensive Metabolic Panel Comprehensive Metabolic Panel Diet Heart Healthy Magnesium Level Patient Education AC4 Patient Education AC4 Phosphorus Level Prothrombin Time Prothrombin Time and Partial Thromboplastin Time Pulse Oximetry Spot Check by Nurse Resuscitation (Code) Status UA with culture if indicated Vital Signs Prophylaxis ambulation Disposition pending [place] OG [id number] 10/25/2015 [facility] Extracted from:Title: Clinical Document Author: Mc Coe MD Date: 10/12/14 Date of Admission: 10/07/14 Date of Discharge: 10/12/14 ADMITTING DIAGNOSIS: TIA A fib Essential HTN DISCHARGE DIAGNOSIS: Fluid overload due to elevated RVSP L pleural effusion CISCO A fib TIA Essential HTN CONSULTS: Pulmonary PROCEDURES: none Chief complaint , HPI and HOSPITAL COURSE: 79 yo female with PMH of Afib on xarelto, s/p pacer, CAD s/p CABG, essential HTN, hypothyroidism admitted to stroke service with c/o aphasia and work up for TIA vs seizures, all work up negative. Pt transferred to hospitalists service for hypoxia, found to be in volume overload, responded to diuresis. she was found tohave L pleural effusion, evalauted by pulmonary and recommended diuresis and no indication for thoracentesis. She is discharged home on oxygen, lasix, needs sleep study as out pt Discharge physical exam: GENERAL: Patient awake, alert, oriented to time, place, person. No distress HEENT: no pallor, no icterus, no JVD, no carotid bruit, oral mucosa moist, no thyromegaly LUNGS: normal respiratory effort, good air entry both sides, no wheeze/ crackles CVS: S1, S2 +, Regular rhythm, no murmur, no edema GI: Bowel sounds +, soft, nontender, nondistended, no organomegaly MUSKULOSKELETAL: no restriction of movements SKIN: no rash, no ulcers NEURO: No focal deficits, normal strength in all extremities PSYCH: normal mood Discharge condition: Stable Discharge to : Home with home health Discharge Meds: Please see home medication reconciliation F/U: PCP in one week [place] [facility] for sleep study I have seen and examined the patient on the day of discharge Time spent on discharge: Approximately 43 minutes, explaining about the diagnosis, new medications, prescriptions Extracted from:Title: Progress Note * Author: Mc Coe MD Date: 10/12/14 Impression and Plan Hypoxia: from fluid overload, pleural effusion, requiring oxygen, O2 sats: 86 % on room air responded to diuresis Evaluated by Pulmonary, no indication for thoracentesis Home oxygen ordered Fever: atelectasis likely WBC not elevated, cultures negative, procalcitonin 0.25 IS, no Abx for now A fib: rate controlled on propafenone xarelto for stroke ppx HTN: essential was on coreg and norvasc, currently on lasix CAD: on ASA, statin DVt ppx : on xarelto DISPO: can be discharged home if home oxygen is arranged [facility] hospitalists primary. pager [phone] Extracted from:Title: Clinical Document Author: Lyndon Magallon MD Date: 10/07/14 STROKE TEAM / NEUROLOGY - HISTORY AND PHYSICAL Patient Name: Iwona Isidro Date of Admission: 10/07/14 Requesting Physician/Service: ER CC: Concern for TIA HISTORY OF PRESENT ILLNESS: Patient is a 79 year right handed female who presents to the ER after an episode of "aphasia"/unresponsiveness that occurred while she was at the dinner table with her family. In ER, patient is back at her neurological baseline. According to her grandson, she was talking to him when she suddenly could not get words out. He then noted her rolling her hands/shaking her hands. This episode lasted for 15 minutes. There was no associated head, eye deviation. No tongue biting. No urinary incontinence. According to grandson, this has occurred 3x this past month. family members are very poor historians REVIEW OF SYSTEMS: GEN: no fever, chills, weight loss, fatigue EYES: no blurred vision, double vision CARDIO: no chest pain, palpitations PULM: no shortness of breath, cough GI: no nausea, vomiting, diarrhea, no abd pain : no frequency, dysuria, hematuria NEURO: see HPI SKIN: no rash or lesion MSK: no pain, swelling, redness, heat in muscles, no limited ROM, weakness, or atrophy, no cramps LYMPH/IMMUNO: No lymph node enlargement/tenderness, no heat/cold intolerance PAST MEDICAL HISTORY: CO, CABG HTN A-fib with pacemaker PAST SURGICAL HISTORY: "Vein surgeries" Pacemaker placement FAMILY MEDICAL HISTORY: Strok in father SOCIAL HISTORY: The patient is and lives with her daughter. Denies alcohol, tobacco, or drug use. Needs assistance with gait but otherwise is independent MEDICATIONS: Xarelto 15 mg po daily Lipitor 20 mg daily Carvedilol 12.5mg daily Aspirin 81 mg po daily Doc-q-lace 100 mg BID Propafenone 150 mg q8 Amlodipine 5 mg daily Levothyroxine 0.100mg daily ALLERGIES: NKDA PHYSICAL EXAM: Vitals Tmp(F) Tmp(C) Ttype BP MAP Pulse RR SpO2 FIO2 ETCO2 10/07 17:15 97.4 36.33 oral 157/78 --- 82 18 96 --- --- 24 Hr Tmax: 97.4F (36.33c) at 10/07 17:15 Vital Signs are the last 5 in the past 48 hours. 24 Hr Tmin: 97.4F (36.33c) at 10/07 17:15 Weights are the last 5 in 60 days, plus initial. GENERAL: Awake/NAD. HEENT: - Normocephalic and atraumatic; MMM LUNGS - no increased work of breathing CV - S1S2 ABDOMEN - Soft, nontender NEURO: Mental status: Awake, alert, and interactive. Answers questions and follows commands appropriately. Cranial nerves: Pupils equal, round, and reactive. R__3____mm L__3___mm. Visual galdamez intact to confrontation. Eye movements full without nystagmus. Face symmetric at rest and with activation. Facial sensation is intact to light touch. Tongue and palate midline. Good strength in trapezius and sternocleidomastoid bilaterally. Motor: Normal bulk and tone. Antigravity x 4 Sensation: Intact to light touch Coordination: No dysmetria on finger-nose Gait: not assessed NIH Stroke Scale (NIHSS) 0 1a. Level of Consciousness; 0-alert 1-drowsy 2-stupor 3-comatose 1 1b. LOC Questions month and age; 0-both 1-one 2-neither 0 1c. LOC Commands open/close eyes, pawn shop keeper/release non-paretic hand; 0-both 1-one 2-neither 0 2. Best Gaze; 0-nl 1-partial 2-forced gaze 0 3. Visual Galdamez; 0-No visual loss. 1-Partial hemianopia 2-Complete 3-Bilateral 0 4. Facial Palsy; 0-none 1-minor 2-partial 3-complete 0 5. Motor - R arm; 0-No drift 1-Drift 2-Some antigravity 3-No antigravity 4- No movement 0 6. Motor - R leg; 0-No drift 1-Drift 2-Some antigravity 3-No antigravity 4- No movement 0 7. Motor - L arm; 0-No drift 1-Drift 2-Some antigravity 3-No antigravity 4- No movement 0 8. Motor - L leg; 0-No drift 1-Drift 2-Some antigravity 3-No antigravity 4- No movement 0 9. Limb Ataxia; 0 absent 1 - 1limb 2 - 2 limbs 0 10. Sensory; 0-nl 1-partial loss 2-dense loss 0 11. Best Language; 0-nl 1-mild/mod 2-severe 3-mute 0 12. Dysarthria; 0-nl 1-mild/mod 2-severe x-untestable 0 13. Extinction and Inattention (formerly Neglect); 0-none 1-partial 2-complete TOTAL SCORE 1 SIGNIFICANT LABS: Creatinine: 1.3 Glucose: 97 INR: 1.34 Cardiac Markers: CK 213 DIAGNOSTIC TESTS: CT Head: prelim asymmetric loss of devlin-white matter differentiation in the R frontoparietal lobe/MCA territory. CTA/Perfusion:p EKG:p ASSESSMENT: Patient is a 79 year old female with significant past medical history of HTN, history of CO and CABG, a-fib with pacemaker who presents with episode of unresponsiveness/aphasia associated with atypical hand movements. At the time of my evaluation, patient is symptom free and at her neurological baseline. Immediate work up does not reveal anacute ischemic or hemorrhagic event however she warrants further evaluation. Other etiologies of her symtpoms include TIA and seizure. Temporal lobe seizures can produce automatisms which may explain these repeated episodes of "unresponsiveness" associated with hand shaking/rolling. No thrombolysis Admit to stroke unit. ASA 325mg daily has not been ordered as patient does not require both antiplatelet and anticoagulation. Atorvastatin 80mg daily has been ordered HOB flat Telemetry CXR EKG if not done in ED Repeat head CT with contrast tomorrow.; CTA head and neck to evaluate vessels Routine EEG tomorrow TTE to evaluate for cardiac source of embolus. Stroke labs: fasting lipid panel and hemoglobin A1c . IV NS 75 cc/hr. Permissive hypertension (SBP <220) for AIS not treated with IV t-PA. Treat fevers and blood sugars aggressively. PT/OT/ICT PROJECT MANAGER consults - rehab assessments have been ordered. DVT prophylaxis, SCDs Heparin or Lovenox not ordered as patient is on xarelto. Patient discussed with Dr. Jj, stroke fellow concession attendant. THE FOLLOWING WERE PRESENT ON ADMISSION: Cardiovascular - A-fib, pacemaker, history of CO/CABG CORE MEASURES: 1) Antithrombotics have been ordered and actually given before the end of hospital day 2 2) Statins have been ordered 3) The rehab assessment has been ordered and assesment has been done 4) The patient did not received tpA because did not fit institutional protocol 5) The patient does/does not have a wong catheter. Indication for catheter output monitoring/ decubitus ulcer/ urinary retention. Stroke education: Our team has discussed with the patient and/or family in detail about the signs and symptoms of stroke and the importance of their early recognition and activation of EMS by calling 911. Stroke risk factors have been clearly identified and communicated to the patient. The importance of taking prescribed medication to treat these risk factors has been explained. Additionally, the importance of life style modification for risk factor control has been emphasized. I have explained the imporance of following up with a primary care provider and with a neurologist for secondary stroke prevention. STROKE STAFF I have personally evaluated the patient. I have reviewed the resident's note detailed above. I agree with the resident's findings, assessment and plan as outlined in the note except as detailed below. In addition, I have reviewed the patient's neuroimaging findings which reveal: CT:No acute findings by my read CTA: chronic segmental vert occlusions with reconstitution via collaterals INR 1.34 Neurologic exam: Awake, alert, and attentive. Normal language. PERRL. Eye movements intact. Face symmetric. Facial sensation intact and symmetric. Normal visual galdamez. Strength full throughout. Intact sensation. Impression/Plan:78 yo woman with atrial fibrillation, PM, p/w transient speech arrest and wringing/ writhing of hands. Has had episodes of speech arrest, with maintained consciousness. Recalls episodes. Seizure vs anxiety. CT with possible early ischemic changes but does not explain current symptoms. Plan - Antithrombotic: xarelto - Statin: atorvastatin 40mg - Blood pressure goals: normal BP - Stroke labs pending - repeat CT at 24 hrs to assess - Transthoracic Echo - EEG - PT/OT/ICT PROJECT MANAGER evaluations [id number] Arlette Rodriguez MD MPH Stroke Attending c [phone] p [phone] 10/12/2014 [facility] Plan of Care No Data Provided for This Section Social History Social History Date Source Social History TypeResponse Alcohol Never Smoking Status Never smoker; Exposure to Tobacco Smoke None; Cigarette Smoking Last 365 Days No; Reg Smoking Cessation Counseling No entered on: 07/16/18 07/16/2018 [facility] Social History TypeResponse Alcohol Never Smoking Status Never smoker; Type: Cigarettes; Previous treatment: None; Ready to change: No; Concerns about tobacco use in household: No; Exposure to Tobacco Smoke None; Cigarette Smoking Last 365 Days No; Reg Smoking Cessation Counseling No 10/24/2015 [facility] Social History TypeResponse Alcohol Never Smoking Status Never smoker; Type: Cigarettes; Previous treatment: None; Ready to change: No; Concerns about tobacco use in household: No; Exposure to Tobacco Smoke None; Cigarette Smoking Last 365 Days No; Reg Smoking Cessation Counseling No 10/24/2015 [facility] Family History No Data Provided for This Section Advance Directives No Data Provided for This Section Functional Status No Data Provided for This Section
--- OUTSIDE RECORDS SUMMARY | 2019-01-11 14:03 | XMS REPORT | Summary of Care ---
Author Author [facility] [place] Organization [facility] [place] Address Unknown Phone Unavailable Encounter HQ Antione_ravindra(FIN) [id number] Date(s): 04/17/17 - 04/17/17 [facility] [place] [address] [place] [phone] Discharge Disposition: Home or Self Care Attending Physician: Layo De Los Santos MD Vital Signs No data available for this section Problem List Condition Effective Dates Status Health Status Informant Afib(Confirmed) Resolved AMI - Acute Resolved myocardial infarction(Confirmed ) Cardiac pacemaker Resolved implant(Confirmed) Chronic Resolved CHF(Confirmed) Heart Resolved failure(Confirmed) HTN Resolved (hypertension)(Confi rmed) Hypertension(Confirm Resolved ed) Allergies, Adverse Reactions, Alerts Substance Reaction Severity Status NKDA Active NKFA Active Medications No data available for this section Results No data available for this section Immunizations Not Given Vaccine Date Status Refusal Reason pneumococcal 23-valent vaccine 12/03/14 Not Given Patient Refuses Procedures Procedure Date Related Diagnosis Body Site CABG - Coronary artery bypass graft Cardiac pacemaker procedure Social History Social History Type Response Alcohol Never Smoking Status Never smoker; Type: Cigarettes; Previous treatment: None; Ready to change: No; Concerns about tobacco use in household: No; Exposure to Tobacco Smoke None; Cigarette Smoking Last 365 Days No; Reg Smoking Cessation Counseling No Assessment and Plan No data available for this section
--- OUTSIDE RECORDS SUMMARY | 2019-01-11 14:03 | XMS REPORT | Summary of Care ---
Author Organization Unknown Address Unknown Phone Unavailable Encounter MANNY Flores(THIERRY) [id number] Date(s): 10/07/14 - 10/12/14 [facility] [address] [place] [address] Professional Services provided by [facility] [place] [address]- Final: Discharge Disposition: Home Physician Attending: Mc Coe MD Physician Admitting: Arlette Rodriguez MD Vital Signs 1 2 3 Most recent to oldest [Reference Range]: 157.48 cm (10/07/14 11:29 PM) 152.4 cm (10/07/14 5:15 PM) Height 75.455 kg (10/10/14 5:53 AM) Current Weight 97.8 DegF (10/12/14 8:45 AM) 98.1 DegF (10/12/14 4:24 AM) 97.7 DegF (10/12/14 12:13 AM) Temperature Oral [96.4-99.1 DegF] 147/80 mmHg *HI* (10/12/14 8:45 AM) 129/73 mmHg (10/12/14 4:24 AM) 128/74 mmHg (10/12/14 12:13 AM) Blood Pressure [90-140/60-90 mmHg] 20 BRMIN (10/12/14 8:45 AM) 20 BRMIN (10/12/14 4:24 AM) 20 BRMIN (10/12/14 12:13 AM) Respiratory Rate [14-20 BRMIN] 83 bpm (10/12/14 8:45 AM) 72 bpm (10/12/14 4:24 AM) 71 bpm (10/12/14 12:13 AM) Peripheral Pulse Rate [60-100 bpm] 75 kg (10/07/14 11:29 PM) 70.455 kg (10/07/14 5:15 PM) Weight 30.24 m2 (10/07/14 11:29 PM) 30.33 m2 (10/07/14 5:15 PM) Body Mass Index Problem List Condition Effective Dates Status Health Status Informant Afib(Confirmed) Resolved AMI - Acute Resolved myocardial infarction(Confirmed ) Cardiac pacemaker Resolved implant(Confirmed) Chronic Resolved CHF(Confirmed) HTN Resolved (hypertension)(Confi rmed) Allergies, Adverse Reactions, Alerts Substance Reaction Severity Status NKDA Active NKFA Active Medications amLODIPine 5 mg oral tablet 5 mg=1 tab, PO, Daily Start Date: 10/08/14 Stop Date: 10/12/14 Status: Discontinued aspirin 81 mg, 1 tab, Route: PO, Drug form: ECTAB, Daily, Dosing Weight 70.455, kg, Star t date: 10/08/14 9:00:00, Duration: 30 day, Stop date: 11/06/14 9:00:00 Notes: Do not crush or chew.(Same As: Ecotrin) Start Date: 10/08/14 Stop Date: 10/12/14 Status: Discontinued aspirin 81 mg tablet, enteric coated 81 mg=1 tab, PO, Daily Start Date: 10/08/14 Status: Ordered atorvastatin 20 mg oral tablet 20 mg=1 tab, PO, Bedtime Start Date: 10/08/14 Status: Ordered carvedilol 12.5 mg oral tablet 12.5 mg=1 tab, PO, BID Start Date: 10/08/14 Stop Date: 10/12/14 Status: Discontinued Colace 100 mg oral capsule 100 mg, 1 cap, Route: PO, Drug form: CAP, BID, Dosing Weight 70.455, kg, PRN Con stipation, Start date: 10/07/14 22:58:00, Duration: 30 day, Stop date: 11/06/14 22:57:00 Notes: (Same as: Colace) (Do Not Crush) Start Date: 10/07/14 Stop Date: 10/12/14 Status: Discontinued Cough Relief 30 mg, Route: PO, Q8H, Dosing Weight 75, kg, PRN Cough/Congestion, Start date: 0 10/08/14 20:46:00, Duration: 30 day, Stop date: 11/07/14 20:45:00 Start Date: 10/08/14 Stop Date: 10/08/14 Status: Deleted Dexilant 60 mg oral delayed release capsule 60 mg=1 cap, PO, Daily Start Date: 10/08/14 Status: Ordered docusate sodium 100 mg oral capsule 100 mg=0, PO, BID, PRN Constipation Start Date: 10/08/14 Stop Date: 10/12/14 Status: Discontinued DuoNeb inhalation solution 3 ml, Route: INHALATION, Drug Form: SOLN, Dosing Weight 75, kg, PRN, PRN Respira tory Protocol, Start date: 10/09/14 3:22:00, Duration: 30 day, Stop date: 3:21:00 Notes: (Same as: Duoneb) Start Date: 10/09/14 Stop Date: 10/12/14 Status: Discontinued Lasix 40 mg, 4 mL, Route: IV, Drug form: INJ, ONCE, Dosing Weight 75, kg, Start date: 10/09/14 6:55:00, Stop date: 10/09/14 6:55:00 Notes: (Same as: Lasix) MEDICATION WASTE Product Size: 40 mgProduct Was sherlyn: ___ mg Start Date: 10/09/14 Stop Date: 10/09/14 Status: Completed Lasix 20 mg, 2 mL, Route: IVP, Drug form: INJ, BID Diuretic, Dosing Weight 75, kg, Sta rt date: 10/10/14 6:00:00, Duration: 30 day, Stop date: 11/08/14 14:00:00 Notes: (Same as: Lasix) Start Date: 10/10/14 Stop Date: 10/10/14 Status: Discontinued Lasix 40 mg, 4 mL, Route: IV, Drug form: INJ, BID, Dosing Weight 75, kg, Start date: 0 10/10/14 18:00:00, Duration: 30 day, Stop date: 11/09/14 17:00:00 Notes: (Same as: Lasix) MEDICATION WASTE Product Size: 40 mgProduct Was sherlyn: ___ mg Start Date: 10/10/14 Stop Date: 10/12/14 Status: Discontinued Lasix 20 mg, 2 mL, Route: IV, Drug form: INJ, ONCE, Dosing Weight 75, kg, Start date: 10/10/14 8:45:00, Stop date: 10/10/14 8:45:00 Notes: (Same as: Lasix) Start Date: 10/10/14 Stop Date: 10/10/14 Status: Completed Lasix 40 mg, 4 mL, Route: IV, Drug form: INJ, ONCE, Dosing Weight 75, kg, Priority: ST AT, Start date: 10/09/14 11:57:00, Stop date: 10/09/14 11:57:00 Notes: (Same as: Lasix) Start Date: 10/09/14 Stop Date: 10/09/14 Status: Completed Lasix 40 mg oral tablet 40 mg, 1 tab, Route: PO, Drug form: TAB, BID, Dosing Weight 75, kg, Start date: 10/12/14 17:00:00, Duration: 30 day, Stop date: 11/11/14 9:00:00 Notes: (Same as: Lasix) May cause GI upset. Give with food or milk. Start Date: 10/12/14 Stop Date: 10/12/14 Status: Canceled Lasix 40 mg oral tablet 40 mg=1 tab, PO, BID, # 60 tab, 0 Refill(s) Start Date: 10/12/14 Status: Ordered levothyroxine 100 microgram, 1 tab, Route: PO, Drug form: TAB, Q630AM, Dosing Weight 70.455, k g, Start date: 10/08/14 6:30:00, Duration: 30 day, Stop date: 11/06/14 6:30:00 Notes: Take 1 hour before or 2 hours after meal; Enteral feeds may interefere wi th the absorption of this medication. (Same as:Levothroid, Synthroid) Start Date: 10/08/14 Stop Date: 10/12/14 Status: Discontinued levothyroxine 100 mcg (0.1 mg) oral tablet 100 microgram=1 tab, PO, QAM Start Date: 10/08/14 Status: Ordered Lipitor 80 mg, 1 tab, Route: PO, Drug form: TAB, Bedtime, Dosing Weight 70.455, kg, Star t date: 10/08/14 21:00:00, Duration: 30 day, Stop date: 11/06/14 21:00:00 Notes: Same as Lipitor Start Date: 10/08/14 Stop Date: 10/12/14 Status: Discontinued normal saline 0.9% IV 1,000 mL 1,000 mL, Rate: 75 ml/hr, Infuse over: 13.3 hr, Route: IV, Dosing Weight 70.455 kg, Total Volume: 1,000, Start date: 10/07/14 21:32:00, Duration: 30 day, Stop d ate: 11/06/14 21:31:00 Start Date: 10/07/14 Stop Date: 10/09/14 Status: Discontinued potassium chloride 20 mEq, 1 tab, Route: PO, Drug form: ERTAB, ONCE, Dosing Weight 75, kg, Start da te: 10/11/14 7:22:00, Stop date: 10/11/14 7:22:00 Notes: (Same as: K-Dur 20)"Do Not Crush" With food and full glass of water Start Date: 10/11/14 Stop Date: 10/11/14 Status: Completed potassium citrate 10 mEq oral extended release tablet 10 mEq=1 tab, PO, Daily, # 30 tab, 0 Refill(s) Start Date: 10/12/14 Status: Ordered propafenone 150 mg, 1 tab, Route: PO, Drug form: TAB, Q8H, Dosing Weight 70.455, kg, Start d ate: 10/08/14 0:00:00, Duration: 30 day, Stop date: 11/06/14 16:00:00 Notes: (Same as: Rythmol) Start Date: 10/08/14 Stop Date: 10/12/14 Status: Discontinued propafenone 150 mg oral tablet 150 mg=1 tab, PO, Q8H Start Date: 10/08/14 Status: Ordered Robitussin Cough Drop Head lozenge Route: PO, Q6H, PRN Cough, Start date: 10/08/14 20:45:00, Duration: 30 day, Stop date: 11/07/14 20:44:00 Start Date: 10/08/14 Stop Date: 10/08/14 Status: Deleted Robitussin-DM 10 mL, Route: PO, Drug Form: SYRP, Q6H, PRN Cough, Start date: 10/08/14 23:49:00 , Duration: 30 day, Stop date: 11/07/14 23:48:00 Notes: (dextromethorphan-guaifenesin 10-100mg/5ml 10 ml oral SOLN ud) (Same as: Robitussin DM) Start Date: 10/08/14 Stop Date: 10/12/14 Status: Discontinued Saline Flush 0.9% 10 mL, Route: MISC, Drug Form: INJ, Dosing Weight 70.455, kg, PRN, PRN Line Flus h, Start date: 10/07/14 18:19:00, Duration: 30 day, Stop date: 11/06/14 18:18:00 Notes: (Same as: BD Posiflush) Start Date: 10/07/14 Stop Date: 10/12/14 Status: Discontinued Tylenol 650 mg, 2 tab, Route: PO, Drug form: TAB, Q6H, Dosing Weight 75, kg, PRN Pain Sc ore 1-5, Start date: 10/10/14 18:21:00, Duration: 30 day, Stop date: 11/09/14 18 :20:00 Notes: Do not exceed 4 gm/day. (Same as: Tylenol) Start Date: 10/10/14 Stop Date: 10/12/14 Status: Discontinued Visipaque 320mg/ml 85 mL, Route: IVP, Drug Form: SOLN, Dosing Weight 70.455, kg, ONCALL, STAT, Star t date: 10/07/14 21:17:00, Duration: 1 doses or times, Dose=2.2ml/kg, Max dose= 100ml -- "To be infused by Radiology Staff ONLY" Special Instructions: Dose=2.2ml/kg, Max fltj=234yg -- "To be infused by Radiol ogy Staff ONLY" Start Date: 10/07/14 Stop Date: 10/07/14 Status: Completed Vitamin C 500 mg oral tablet 500 mg=1 tab, PO, Daily Start Date: 10/08/14 Status: Ordered Xarelto 15 mg, 1 tab, Route: PO, Drug form: TAB, QPM, Dosing Weight 70.455, kg, Start da te: 10/08/14 17:00:00, Duration: 30 day, Stop date: 11/06/14 17:00:00 Notes: (Same as: Xarelto)Administer with food Start Date: 10/08/14 Stop Date: 10/12/14 Status: Discontinued Xarelto 15 mg oral tablet 15 mg=1 tab, PO, QPM Start Date: 10/08/14 Status: Ordered Zofran 4 mg, 2 mL, Route: IVP, Drug form: INJ, ONCE, Dosing Weight 75, kg, Start date: 10/09/14 1:37:00, Stop date: 10/09/14 1:37:00 Notes: (Same as: Zofran) MEDICATION WASTE Product Size: 4 mgProduct Was sherlyn: ___ mg Start Date: 10/09/14 Stop Date: 10/09/14 Status: Completed Results ELECTROLYTES 1 2 3 Most recent to oldest [Reference Range]: 136 mEq/L (10/11/14 3:09 AM) 142 mEq/L (10/09/14 7:42 AM) 142 mEq/L (10/08/14 2:29 AM) Sodium Lvl [135-145 mEq/L] 3.4 mEq/L *LOW* (10/11/14 3:09 AM) 3.9 mEq/L (10/09/14 7:42 AM) 3.8 mEq/L (10/08/14 2:29 AM) Potassium Lvl [3.5-5.1 mEq/L] 99 mEq/L (10/11/14 3:09 AM) 109 mEq/L (10/09/14 7:42 AM) 108 mEq/L (10/08/14 2:29 AM) Chloride Lvl [95-109 mEq/L] 28 mEq/L (10/11/14 3:09 AM) 25 mEq/L (10/09/14 7:42 AM) 20 mEq/L *LOW* (10/08/14 2:29 AM) CO2 [24-32 mEq/L] 12.4 mEq/L (10/11/14 3:09 AM) 11.9 mEq/L (10/09/14 7:42 AM) 17.8 mEq/L (10/08/14 2:29 AM) AGAP [10.0-20.0 mEq/L] CHEM PANEL 1 2 3 Most recent to oldest [Reference Range]: 1.4 mg/dL (10/11/14 3:09 AM) 1.2 mg/dL (10/09/14 7:42 AM) 1.2 mg/dL (10/08/14 2:29 AM) Creatinine Lvl [0.5-1.4 mg/dL] 36 mL/min/1.73m2 1 *NA* (10/11/14 3:09 AM) 44 mL/min/1.73m2 2 *NA* (10/09/14 7:42 AM) 44 mL/min/1.73m2 3 *NA* (10/08/14 2:29 AM) eGFR 10 mg/dL (10/11/14 3:09 AM) 9 mg/dL (10/09/14 7:42 AM) 9 mg/dL (10/08/14 2:29 AM) BUN [7-22 mg/dL] 7 (10/11/14 3:09 AM) 8 (10/08/14 2:29 AM) B/C Ratio [6-25] 94 mg/dL 4 (10/11/14 3:09 AM) 97 mg/dL 5 (10/09/14 7:42 AM) 98 mg/dL 6 (10/08/14 2:29 AM) Glucose Lvl [70-99 mg/dL] 7.7 g/dL (10/11/14 3:09 AM) 6.9 g/dL (10/08/14 2:29 AM) Total Protein [6.4-8.4 g/dL] 3.5 g/dL (10/11/14 3:09 AM) 3.3 g/dL *LOW* (10/08/14 2:29 AM) Albumin Lvl [3.5-5.0 g/dL] 4.2 g/dL *HI* (10/11/14 3:09 AM) 3.6 g/dL (10/08/14 2:29 AM) Globulin [2.0-4.0 g/dL] 0.8 (10/11/14 3:09 AM) 0.9 (10/08/14 2:29 AM) A/G Ratio [0.7-1.6] 8.9 mg/dL (10/11/14 3:09 AM) 8.3 mg/dL *LOW* (10/09/14 7:42 AM) 9.0 mg/dL (10/08/14 2:29 AM) Calcium Lvl [8.5-10.5 mg/dL] 13 unit/L (10/11/14 3:09 AM) 19 unit/L (10/08/14 2:29 AM) ALT [0-65 unit/L] 20 unit/L (10/11/14 3:09 AM) 20 unit/L (10/08/14 2:29 AM) AST [0-37 unit/L] 219 unit/L *HI* (10/11/14 3:09 AM) 202 unit/L *HI* (10/08/14:29 AM) Alk Phos [39-136 unit/L] 1.6 mg/dL *HI* (10/11/14 3:09 AM) 0.6 mg/dL (10/08/14:29 AM) Bili Total [0.2-1.3 mg/dL] 0.25 ng/mL *HI* (10/11/14 3:09 AM) Procalcitonin Lvl [0.00-0.10 ng/mL] 1Result Comment: The eGFR is calculated using the [...] from the National Kid[employer] Education Program ( NKDEP) which additionally recommends that when the eGFR is used in patients with extremes of body mass index for purposes of drug dosing, the eGFR should be mul tiplied by the estimated BMI. 2Result Comment: The eGFR is calculated using the [...] from the National Kid[employer] Education Program ( NKDEP) which additionally recommends that when the eGFR is used in patients with extremes of body mass index for purposes of drug dosing, the eGFR should be mul tiplied by the estimated BMI. 3Result Comment: The eGFR is calculated using the [...] from the National Kid[employer] Education Program ( NKDEP) which additionally recommends that when the eGFR is used in patients with extremes of body mass index for purposes of drug dosing, the eGFR should be mul tiplied by the estimated BMI. 4Interpretive Data: Adult reference range values reflect the clinical guidelines of the [employer]. 5Interpretive Data: Adult reference range values reflect the clinical guidelines of the [employer]. 6Interpretive Data: Adult reference range values reflect the clinical guidelines of the [employer]. CARDIAC ENZYMES 1 2 3 Most recent to oldest [Reference Range]: 148 unit/L (10/09/14 1:48 PM) 159 unit/L (10/09/14 7:42 AM) 213 unit/L *HI* (10/07/14 6:43 PM) Total CK [12-191 unit/L] 0.6 ng/mL (10/09/14 1:48 PM) 0.7 ng/mL (10/09/14 7:42 AM) 0.9 ng/mL (10/07/14 6:43 PM) CK MB [0.5-3.6 ng/mL] 0.4 (10/09/14 1:48 PM) 0.4 (10/09/14 7:42 AM) 0.4 (10/07/14 6:43 PM) CK MB Index [0.0-2.5] <0.010 ng/mL (10/09/14 1:48 PM) <0.010 ng/mL (10/09/14 7:42 AM) Troponin-T [0.000-0.100 ng/mL] <0.02 ng/mL (10/09/14 1:48 PM) <0.02 ng/mL (10/09/14 7:42 AM) <0.02 ng/mL (10/07/14 6:43 PM) Troponin-I [0.00-0.40 ng/mL] 337 pg/mL 7 *HI* (10/09/14 7:42 AM) BNP [<=100 pg/mL] 7Interpretive Data: Elevated results are in line with increasing severity of congestive heart failure. Minor elevations between 100 and 300 may be seen with Myocardial Ischemia, Sodium retaining drugs, and compensated/treated heart failure. LIPIDS 1 2 3 Most recent to oldest [Reference Range]: 3.28 *LOW* (10/08/14 2:29 AM) CHD Risk [3.90-5.80] 141 mg/dL (10/08/14 2:29 AM) Chol [<=199 mg/dL] 122 mg/dL (10/08/14 2:29 AM) Trig [<=149 mg/dL] 43 mg/dL *LOW* (10/08/14 2:29 AM) HDL [>=61 mg/dL] 74 mg/dL (10/08/14 2:29 AM) LDL (Calculated) [<=99 mg/dL] 24 *NA* (10/08/14 2:29 AM) VLDL SPECIAL CHEMISTRY 1 2 3 Most recent to oldest [Reference Range]: 5.8 % *HI* (10/08/14 2:29 AM) Hgb A1C [<=5.6 %] THYROID PANEL 1 2 3 Most recent to oldest [Reference Range]: 2.440 uIU/mL (10/09/14 7:42 AM) TSH [0.360-3.740 uIU/mL] URINE AND STOOL 1 2 3 Most recent to oldest [Reference Range]: Clear (10/10/14 10:21 PM) Clear (10/08/14 2:29 AM) Clear (10/07/14 7:32 PM) UA Turbidity [Clear] Yellow *NA* (10/10/14 10:21 PM) Yellow *NA* (10/08/14 2:29 AM) Yellow *NA* (10/07/14 7:32 PM) UA Color [Yellow] 5.5 (10/10/14 10:21 PM) 7.5 (10/08/14 2:29 AM) UA pH [5.0-8.0] 7.0 (10/07/14 7:32 PM) UA pH [5.0-8.0] 1.006 (10/10/14 10:21 PM) 1.038 *HI* (10/08/14 2:29 AM) UA Spec Grav [<=1.030] 1.010 (10/07/14 7:32 PM) UA Spec Grav [<=1.030] Negative mg/dL *NA* (10/10/14 10:21 PM) Negative mg/dL *NA* (10/08/14 2:29 AM) Negative mg/dL (10/07/14 7:32 PM) UA Glucose [Negative mg/dL] Trace *ABN* (10/10/14 10:21 PM) Moderate *ABN* (10/08/14 2:29 AM) Negative (10/07/14 7:32 PM) UA Blood [Negative] Negative mg/dL *NA* (10/10/14 10:21 PM) Negative mg/dL *NA* (10/08/14 2:29 AM) Negative mg/dL *NA* (10/07/14 7:32 PM) UA Ketones [Negative mg/dL] Negative mg/dL (10/10/14 10:21 PM) Negative mg/dL (10/08/14 2:29 AM) Negative mg/dL (10/07/14 7:32 PM) UA Protein [Negative mg/dL] <=1.0 mg/dL *NA* (10/10/14 10:21 PM) 2.0 mg/dL *HI* (10/08/14 2:29 AM) UA Urobilinogen [0.1-1.0 mg/dL] 0.2 EU/dL (10/07/14 7:32 PM) UA Urobilinogen [0.1-1.0 EU/dL] Negative *NA* (10/10/14 10:21 PM) Negative *NA* (10/08/14 2:29 AM) Negative *NA* (10/07/14 7:32 PM) UA Bili [Negative] Negative (10/10/14 10:21 PM) Negative (10/08/14 2:29 AM) Negative (10/07/14 7:32 PM) UA Leuk Est [Negative] Negative (10/10/14 10:21 PM) Negative (10/08/14 2:29 AM) Negative (10/07/14 7:32 PM) UA Nitrite [Negative] <1 /HPF (10/10/14 10:21 PM) 1 /HPF (10/08/14 2:29 AM) UA WBC [0-5 /HPF] 5 /HPF *HI* (10/10/14 10:21 PM) 92 /HPF *HI* (10/08/14 2:29 AM) UA RBC [0-2 /HPF] Occasional /LPF *NA* (10/10/14 10:21 PM) Occasional /LPF *NA* (10/08/14 2:29 AM) Rare /LPF (10/07/14 7:32 PM) UA Sq Epi [Few /LPF] Few /LPF *NA* (10/10/14 10:21 PM) UA Mucus [None Seen /LPF] HEMATOLOGY 1 2 3 Most recent to oldest [Reference Range]: 8.5 K/CMM (10/11/14 3:09 AM) 8.3 K/CMM (10/10/14 2:16 PM) 8.2 K/CMM (10/09/14 7:42 AM) WBC [3.7-10.4 K/CMM] 4.02 M/CMM *LOW* (10/11/14 3:09 AM) 3.86 M/CMM *LOW* (10/10/14 2:16 PM) 3.44 M/CMM *LOW* (10/09/14 7:42 AM) RBC [4.20-5.40 M/CMM] 12.3 g/dL (10/11/14 3:09 AM) 11.8 g/dL *LOW* (10/10/14 2:16 PM) 10.5 g/dL *LOW* (10/09/14 7:42 AM) Hgb [12.0-16.0 g/dL] 37.3 % (10/11/14 3:09 AM) 35.6 % *LOW* (10/10/14 2:16 PM) 32.2 % *LOW* (10/09/14 7:42 AM) Hct [36.0-48.0 %] 92.7 fL (10/11/14 3:09 AM) 92.2 fL (10/10/14 2:16 PM) 93.8 fL (10/09/14 7:42 AM) MCV [80.0-98.0 fL] 30.6 pg (10/11/14 3:09 AM) 30.5 pg (10/10/14 2:16 PM) 30.5 pg (10/09/14 7:42 AM) MCH [27.0-31.0 pg] 33.0 g/dL (10/11/14 3:09 AM) 33.1 g/dL (10/10/14 2:16 PM) 32.5 g/dL (10/09/14 7:42 AM) MCHC [32.0-36.0 g/dL] 15.7 % *HI* (10/11/14 3:09 AM) 15.7 % *HI* (10/10/14 2:16 PM) 16.2 % *HI* (10/09/14 7:42 AM) RDW [11.5-14.5 %] 169 K/CMM (10/11/14 3:09 AM) 154 K/CMM (10/10/14 2:16 PM) 132 K/CMM *LOW* (10/09/14 7:42 AM) Platelet [133-450 K/CMM] 9.8 fL (10/11/14 3:09 AM) 9.8 fL (10/10/14 2:16 PM) 10.1 fL (10/09/14 7:42 AM) MPV [7.4-10.4 fL] 70.5 % (10/11/14 3:09 AM) 69.9 % (10/10/14 2:16 PM) 72.3 % (10/09/14 7:42 AM) Segs [45.0-75.0 %] 0.0 % (10/07/14 6:43 PM) Bands [0.0-11.0 %] 16.0 % *LOW* (10/11/14 3:09 AM) 17.0 % *LOW* (10/10/14 2:16 PM) 17.6 % *LOW* (10/09/14 7:42 AM) Lymphocytes [20.0-40.0 %] 0.0 % (10/07/14 6:43 PM) Atypical Lymphs [<=0.0 %] 13.0 % *HI* (10/11/14 3:09 AM) 11.0 % (10/10/14 2:16 PM) 9.4 % (10/09/14 7:42 AM) Monocytes [2.0-12.0 %] 0.4 % (10/11/14 3:09 AM) 1.9 % (10/10/14 2:16 PM) 0.4 % (10/09/14 7:42 AM) Eosinophils [0.0-4.0 %] 0.1 % (10/11/14 3:09 AM) 0.2 % (10/10/14 2:16 PM) 0.3 % (10/09/14 7:42 AM) Basophils [0.0-1.0 %] 6.0 K/CMM (10/11/14 3:09 AM) 5.8 K/CMM (10/10/14 2:16 PM) 5.9 K/CMM (10/09/14 7:42 AM) Segs-Bands # [1.5-8.1 K/CMM] 1.4 K/CMM (10/11/14 3:09 AM) 1.4 K/CMM (10/10/14 2:16 PM) 1.5 K/CMM (10/09/14 7:42 AM) Lymphocytes # [1.0-5.5 K/CMM] 1.1 K/CMM *HI* (10/11/14 3:09 AM) 0.9 K/CMM *HI* (10/10/14 2:16 PM) 0.8 K/CMM (10/09/14 7:42 AM) Monocytes # [0.0-0.8 K/CMM] 0.2 K/CMM (10/10/14 2:16 PM) 0.1 K/CMM (10/08/14 2:29 AM) 0.2 K/CMM (10/07/14 6:43 PM) Eosinophils # [0.0-0.5 K/CMM] Normal (10/07/14 6:43 PM) RBC Morph Normal (10/07/14 6:43 PM) Plt Morph 24.3 seconds *HI* (10/09/14 7:42 AM) 16.7 seconds *HI* (10/07/14 6:43 PM) PT [12.0-14.7 seconds] 2.12 8 *HI* (10/09/14 7:42 AM) 1.34 9 *HI* (10/07/14 6:43 PM) INR [0.85-1.17] 50.7 seconds 10 *HI* (10/09/14 7:42 AM) 42.7 seconds 11 *HI* (10/07/14 6:43 PM) PTT [22.9-35.8 seconds] 8Interpretive Data: RECOMMENDED RANGES FOR PROTIME INR: 2.0-3.0 for most medical and surgical thromboembolic states. 2.5-3.5 for artificial heart valves and recurrent embolism. INR SHOULD BE USED ONLY FOR PATIENTS ON STABLE ANTICOAGULANT THERAPY. 9Interpretive Data: RECOMMENDED RANGES FOR PROTIME INR: 2.0-3.0 for most medical and surgical thromboembolic states. 2.5-3.5 for artificial heart valves and recurrent embolism. INR SHOULD BE USED ONLY FOR PATIENTS ON STABLE ANTICOAGULANT THERAPY. 10Interpretive Data: Heparin Therapeutic Range: 57 - 92 Seconds 11Interpretive Data: Heparin Therapeutic Range: 57 - 92 Seconds Immunizations No data available for this section Procedures Procedure Date Related Diagnosis Body Site CABG - Coronary artery bypass graft Social History Social History Type Response Smoking Status Never smoker; Type: Cigarettes; Previous treatment: None; Ready to change: No; Concerns about tobacco use in household: No; Exposure to Tobacco Smoke None; Cigarette Smoking Last 365 Days No; Reg Smoking Cessation Counseling No Assessment and Plan Extracted from: Title: Clinical Document Author: Mc Coe MD Date: 10/12/14 Date of Admission: 10/07/14 Date of Discharge: 10/12/14 ADMITTING DIAGNOSIS: TIA A fib Essential HTN DISCHARGE DIAGNOSIS: Fluid overload due to elevated RVSP L pleural effusion CISCO A fib TIA Essential HTN CONSULTS: Pulmonary PROCEDURES: none Chief complaint , HPI & HOSPITAL COURSE: 79 yo female with PMH [...] medication reconciliation F/U: PCP in one week [place] [facility] for [facility] study I have seen & examined the patient on the day of discharge Time spent on discharge: Approximately 43 minutes, explaining about the diagnosis, new medications, prescriptions Extracted from: Title: Progress Note * Author: Mc Coe MD [...] stroke ppx HTN: essential was on coreg & norvasc, currently on lasix CAD: on ASA, statin DVt ppx : on xarelto DISPO: can be discharged home if home oxygen is arranged [place] [facility]ists primary. pager [phone] Extracted from: Title: Clinical Document Author: Lyndon Magallon MD Date: 10/07/14 STROKE TEAM / NEUROLOGY - HISTORY AND PHYSICAL Patient Name: Tram Isidro Date of Admission: 10/07/14 Requesting Physician/Service: [...] enlargement/tenderness, no heat/cold intolerance PAST MEDICAL HISTORY: [place], CABG HTN A-fib with pacemaker PAST SURGICAL [...] Levothyroxine 0.100mg daily ALLERGIES: NKDA PHYSICAL EXAM: VitalsTmp(F)Tmp(C)[id number] 10/07 17:[id number]---[id number]------ 24 Hr Tmax: 97.4F (36.33c) at 10/07 17:15Vital Signs are the last 5 in the past 48 hours. 24 Hr Tmin: 97.4F (36.33c) at 10/07 17:15Weights are the last 5 in 60 days, [...] 2-neither 0 1c. LOC Commands open/close eyes, snapper on/release non-paretic hand; 0-both 1-one 2-neither 0 2. [...] past medical history of HTN, history of [place] and CABG, a-fib with pacemaker who presents [...] t-PA. Treat fevers and blood sugars aggressively. PT/OT/CRYSTAL INSPECTOR consults - rehab assessments have been ordered. DVT prophylaxis, SCD s Heparin or Lovenox not ordered as patient is on xarelto. Patient discussed with Dr. Jj, stroke fellow occupational therapy supervisor. THE FOLLOWING WERE PRESENT ON ADMISSION: Cardiovascular - A-fib, pacemaker, history of [place]/CABG CORE MEASURES: 1) Antithrombotics have been ordered [...] assess - Transthoracic Echo - EEG - PT/OT/CRYSTAL INSPECTOR evaluations [id number] Arlette Rodriguez MD MPH Stroke Attending c [phone] p [phone]
--- OUTSIDE RECORDS SUMMARY | 2019-01-11 14:04 | XMS REPORT | Summary of Care ---
Author Author [facility] Organization [facility] Address Unknown Phone Unavailable Encounter MANNY Flores(THIERRY) [id number] Date(s): 04/14/15 - 04/15/15 [facility] [address] [employer] provided by [facility] [employer] [facility] [place] [address]- Discharge Diagnosis: Abdominal pain Discharge Disposition: Home Attending Physician: Margot Connelly MD Vital Signs 1 2 3 Most recent to oldest [Reference Range]: 152.4 cm (04/14/15 8:23 PM) Height 1 2 3 Most recent to oldest [Reference Range]: 97.5 DegF (04/15/15 12:48 AM) 97.7 DegF (04/14/15 8:23 PM) Temperature Oral [96.4-99.1 DegF] 1 2 3 Most recent to oldest [Reference Range]: 131/66 mmHg (04/15/15 12:48 AM) 136/63 mmHg (04/15/15 12:01 AM) 122/84 mmHg (04/14/15 10:49 PM) Blood Pressure [90-140/60-90 mmHg] 1 2 3 Most recent to oldest [Reference Range]: 18 BRMIN (04/15/15 12:48 AM) 21 BRMIN *HI* (04/15/15 12:01 AM) 19 BRMIN (04/14/15 10:49 PM) Respiratory Rate [14-20 BRMIN] 1 2 3 Most recent to oldest [Reference Range]: 61 bpm (04/15/15 12:48 AM) 64 bpm (04/15/15 12:01 AM) 62 bpm (04/14/15 10:49 PM) Peripheral Pulse Rate [60-100 bpm] 1 2 3 Most recent to oldest [Reference Range]: 65.909 kg (04/14/15 8:23 PM) Weight 1 2 3 Most recent to oldest [Reference Range]: 28.38 m2 (04/14/15 8:23 PM) Body Mass Index Problem List Condition Effective Dates Status Health Status Informant Afib(Confirmed) Resolved AMI - Acute Resolved myocardial infarction(Confirmed ) Cardiac pacemaker Resolved implant(Confirmed) Chronic Resolved CHF(Confirmed) Heart Resolved failure(Confirmed) HTN Resolved (hypertension)(Confi rmed) Hypertension(Confirm Resolved ed) Allergies, Adverse Reactions, Alerts Substance Reaction Severity Status NKDA Active NKFA Active Medications GI cocktail 30 mL, Route: PO, Drug Form: SUSP, Dosing Weight 65.909, kg, ONCE, STAT, Start d ate: 04/15/15 0:08:00, Stop date: 04/15/15 0:08:00 Notes: G.I. Cocktail=antacid with simethicone 22.5 mL - lidocaine viscous 7.5 mL Start Date: 04/15/15 Stop Date: 04/15/15 Status: Completed Saline Flush 0.9% 10 mL, Route: IVP, Drug Form: INJ, Dosing Weight 65.909, kg, PRN, PRN Line Flush , Start date: 04/14/15 22:07:00, Duration: 30 day, Stop date: 05/14/15 21:06:00 Notes: (Same as: BD Posiflush) Start Date: 04/14/15 Stop Date: 04/15/15 Status: Discontinued Results ELECTROLYTES Most recent to 1 oldest [Reference Range]: Sodium Lvl [135-145 134 mEq/L mEq/L] *LOW* (04/14/15 10:44 PM) Potassium Lvl 3.9 mEq/L [3.5-5.1 mEq/L] (04/14/15 10:44 PM) Chloride Lvl [95-109 101 mEq/L mEq/L] (04/14/15 10:44 PM) CO2 [24-32 mEq/L] 24 mEq/L (04/14/15 10:44 PM) AGAP [10.0-20.0 12.9 mEq/L mEq/L] (04/14/15 10:44 PM) CHEM PANEL Most recent to 1 oldest [Reference Range]: Creatinine Lvl 1.4 mg/dL [0.5-1.4 mg/dL] (04/14/15 10:44 PM) eGFR 36 mL/min/1.73m2 1 *NA* (04/14/15 10:44 PM) BUN [7-22 mg/dL] 23 mg/dL *HI* (04/14/15 10:44 PM) Glucose Lvl [70-99 111 mg/dL mg/dL] *HI* (04/14/15 10:44 PM) Total Protein 7.9 g/dL [6.4-8.4 g/dL] (04/14/15 10:44 PM) Albumin Lvl [3.5-5.0 3.8 g/dL g/dL] (04/14/15 10:44 PM) Globulin [2.0-4.0 4.1 g/dL g/dL] *HI* (04/14/15 10:44 PM) A/G Ratio [0.7-1.6] 0.9 (04/14/15 10:44 PM) Calcium Lvl 9.2 mg/dL [8.5-10.5 mg/dL] (04/14/15 10:44 PM) ALT [0-65 unit/L] 16 unit/L (04/14/15 10:44 PM) AST [0-37 unit/L] 28 unit/L (04/14/15 10:44 PM) Alk Phos [39-136 247 unit/L unit/L] *HI* (04/14/15 10:44 PM) Bili Total [0.2-1.3 0.5 mg/dL mg/dL] (04/14/15 10:44 PM) Bili Direct [0.0-0.3 0.2 mg/dL mg/dL] (04/14/15 10:44 PM) Bili Indirect 0.3 mg/dL [0.0-1.0 mg/dL] (04/14/15 10:44 PM) Lipase Lvl [73-393 229 unit/L unit/L] (04/14/15 10:44 PM) 1Result Comment: The eGFR is calculated using [...] be mul tiplied by the estimated BMI. URINE AND STOOL Most recent to 1 oldest [Reference Range]: UA Turbidity [Clear] Slight Cloudy (04/14/15 10:07 PM) UA Color [Yellow] Yellow *NA* (04/14/15 10:07 PM) UA pH [5.0-8.0] 7.0 (04/14/15 10:07 PM) UA Spec Grav 1.011 [<=1.030] (04/14/15 10:07 PM) UA Glucose Negative [Negative] (04/14/15 10:07 PM) UA Blood [Negative] Negative (04/14/15 10:07 PM) UA Ketones Negative [Negative] *NA* (04/14/15 10:07 PM) UA Protein Negative [Negative] (04/14/15 10:07 PM) UA Urobilinogen 1.0 EU/dL [0.1-1.0 EU/dL] (04/14/15 10:07 PM) UA Bili [Negative] Negative *NA* (04/14/15 10:07 PM) UA Leuk Est Negative [Negative] (04/14/15 10:07 PM) UA Nitrite Negative [Negative] (04/14/15 10:07 PM) UA WBC [None Seen 0-2 /HPF /HPF] (04/14/15 10:07 PM) UA RBC [0-2 /HPF] 0-2 /HPF (04/14/15 10:07 PM) UA Bacteria [None Few /HPF Seen /HPF] (04/14/15 10:07 PM) UA Sq Epi [Few /LPF] Few /LPF (04/14/15 10:07 PM) HEMATOLOGY Most recent to 1 oldest [Reference Range]: WBC [3.7-10.4 K/CMM] 6.8 K/CMM (04/14/15 10:44 PM) RBC [4.20-5.40 3.72 M/CMM M/CMM] *LOW* (04/14/15 10:44 PM) Hgb [12.0-16.0 g/dL] 10.6 g/dL *LOW* (04/14/15 10:44 PM) Hct [36.0-48.0 %] 33.2 % *LOW* (04/14/15 10:44 PM) MCV [80.0-98.0 fL] 89.3 fL (04/14/15 10:44 PM) MCH [27.0-31.0 pg] 28.6 pg (04/14/15 10:44 PM) MCHC [32.0-36.0 32.1 g/dL g/dL] (04/14/15 10:44 PM) RDW [11.5-14.5 %] 17.5 % *HI* (04/14/15 10:44 PM) Platelet [133-450 96 K/CMM K/CMM] *LOW* (04/14/15 10:44 PM) MPV [7.4-10.4 fL] 10.6 fL *HI* (04/14/15 10:44 PM) Segs [45.0-75.0 %] 62.5 % (04/14/15 10:44 PM) Lymphocytes 22.1 % [20.0-40.0 %] (04/14/15 10:44 PM) Monocytes [2.0-12.0 12.7 % %] *HI* (04/14/15 10:44 PM) Eosinophils [0.0-4.0 2.3 % %] (04/14/15 10:44 PM) Basophils [0.0-1.0 0.4 % %] (04/14/15 10:44 PM) Segs-Bands # 4.2 K/CMM [1.5-8.1 K/CMM] (04/14/15 10:44 PM) Lymphocytes # 1.5 K/CMM [1.0-5.5 K/CMM] (04/14/15 10:44 PM) Monocytes # [0.0-0.8 0.9 K/CMM K/CMM] *HI* (04/14/15 10:44 PM) Eosinophils # 0.2 K/CMM [0.0-0.5 K/CMM] (04/14/15 10:44 PM) Immunizations Vaccine Date Refusal Reason pneumococcal 23-valent vaccine 12/03/14 Patient Refuses Procedures Procedure Date Related Diagnosis Body Site CABG - Coronary artery bypass graft Cardiac pacemaker procedure Social History Social History Type Response Smoking Status Never smoker; Type: Cigarettes; Previous treatment: None; Ready to change: No; Concerns about tobacco use in household: No; Exposure to Tobacco Smoke None; Cigarette Smoking Last 365 Days No; Reg Smoking Cessation Counseling No Assessment and Plan No data available for this section
--- OUTSIDE RECORDS SUMMARY | 2019-01-11 14:04 | XMS REPORT | Summary of Care ---
Author Author [facility] Organization [facility] Address Unknown Phone Unavailable Encounter MANNY Flores(THIERRY) [id number] Date(s): 10/24/15 - 10/25/15 [facility] [address] [employer] provided by [facility] [employer] [facility] [place] [address]- Discharge Disposition: Home Attending Physician: Earl Og MD Vital Signs 1 2 3 Most recent to oldest [Reference Range]: 152.4 cm (10/24/15 5:52 PM) 154.94 cm (10/24/15 5:29 AM) Height 96.9 DegF (10/25/15 7:27 AM) 97.2 DegF (10/25/15 3:29 AM) 97.5 DegF (10/24/15 11:37 PM) Temperature Oral [96.4-99.1 DegF] 136/71 mmHg (10/25/15 7:27 AM) 133/63 mmHg (10/25/15 3:29 AM) 131/60 mmHg (10/24/15 11:37 PM) Blood Pressure [90-140/60-90 mmHg] 18 BRMIN (10/25/15 7:27 AM) 16 BRMIN (10/25/15 3:29 AM) 16 BRMIN (10/24/15 11:37 PM) Respiratory Rate [14-20 BRMIN] 63 bpm (10/25/15 7:27 AM) 70 bpm (10/25/15 3:29 AM) 61 bpm (10/24/15 11:37 PM) Peripheral Pulse Rate [60-100 bpm] 65.909 kg (10/24/15 5:52 PM) 63.636 kg (10/24/15 5:29 AM) Weight 28.38 m2 (10/24/15 5:52 PM) 26.51 m2 (10/24/15 5:29 AM) Body Mass Index Problem List Condition Effective Dates Status Health Status Informant Afib(Confirmed) Resolved AMI - Acute Resolved myocardial infarction(Confirmed ) Cardiac pacemaker Resolved implant(Confirmed) Chronic Resolved CHF(Confirmed) Heart Resolved failure(Confirmed) HTN Resolved (hypertension)(Confi rmed) Hypertension(Confirm Resolved ed) Allergies, Adverse Reactions, Alerts Substance Reaction Severity Status NKDA Active NKFA Active Medications acetaminophen 650 mg, 2 tab, Route: PO, Drug form: TAB, Q4H, Dosing Weight 63.636, kg, PRN Sd n 1-3/Temp > 100.4 F, Start date: 10/24/15 11:51:00 CDT, Duration: 30 day, Stop date: 11/23/15 11:50:00 CDT Notes: Do not exceed 4 gm/day. (Same as: Tylenol) Start Date: 10/24/15 Stop Date: 10/25/15 Status: Discontinued amLODIPine 5 mg, 1 tab, Route: PO, Drug form: TAB, Daily, Dosing Weight 63.636, kg, Start d ate: 10/25/15 9:00:00 CDT, Duration: 30 day, Stop date: 11/23/15 9:00:00 CDT Notes: (Same as: Norvasc) Start Date: 10/25/15 Stop Date: 10/25/15 Status: Discontinued aspirin 81 mg tablet, enteric coated 81 mg, 1 tab, Route: PO, Drug form: ECTAB, Daily, Dosing Weight 63.636, kg, Star t date: 10/25/15 9:00:00 CDT, Duration: 30 day, Stop date: 11/23/15 9:00:00 CDT Notes: Do not crush or chew.(Same As: Ecotrin) Start Date: 10/25/15 Stop Date: 10/25/15 Status: Discontinued atorvastatin 20 mg, 1 tab, Route: PO, Drug form: TAB, Bedtime, Dosing Weight 63.636, kg, Star t date: 10/24/15 21:00:00 CDT, Duration: 30 day, Stop date: 11/22/15 21:00:00 CD T Notes: (Same As: Lipitor) Start Date: 10/24/15 Stop Date: 10/25/15 Status: Discontinued carvedilol 12.5 mg, 1 tab, Route: PO, Drug form: TAB, BID, Dosing Weight 63.636, kg, Start date: 10/24/15 17:00:00 CDT, Duration: 30 day, Stop date: 11/23/15 9:00:00 CDT Notes: Give with food. (Same As: Coreg) Start Date: 10/24/15 Stop Date: 10/25/15 Status: Discontinued furosemide 40 mg oral tablet 40 mg, 1 tab, Route: PO, Drug form: TAB, BID, Dosing Weight 63.636, kg, Start da te: 10/24/15 17:00:00 CDT, Duration: 30 day, Stop date: 11/23/15 9:00:00 CDT Notes: (Same as: Lasix) May cause GI upset. Give with food or milk. Start Date: 10/24/15 Stop Date: 10/25/15 Status: Discontinued lactulose 20 gm, 30 ml, Route: PO, Drug Form: SYRP, Dosing Weight 63.636, kg, TID, Start d ate: 10/24/15 17:00:00 CDT, Duration: 30 day, Stop date: 11/23/15 13:00:00 CDT Notes: (Same as:Chronulac) Start Date: 10/24/15 Stop Date: 10/25/15 Status: Discontinued lactulose 10 g/15 mL oral syrup 20 gm=30 mL, PO, BID, X 30 day, # 1800 mL, 2 Refill(s) Start Date: 10/25/15 Stop Date: 01/23/16 Status: Ordered levothyroxine 100 microgram, 1 tab, Route: PO, Drug form: TAB, Before Breakfast, Dosing Weight 63.636, kg, Start date: 10/25/15 7:30:00 CDT, Duration: 30 day, Stop date: 11/07 12/23 7:30:00 CDT Notes: Take 1 hour before or 2 hours after meal; Enteral feeds may interefere wi th the absorption of this medication. (Same as:Levothroid, Synthroid) Start Date: 10/25/15 Stop Date: 10/25/15 Status: Discontinued omeprazole 40 mg, Route: PO, Drug form: DRC, Daily, Dosing Weight 63.636, kg, Start date: 0 10/25/15 9:00:00 CDT, Duration: 30 day, Stop date: 11/23/15 9:00:00 CDT Start Date: 10/25/15 Stop Date: 10/24/15 Status: Deleted propafenone 150 mg, 1 tab, Route: PO, Drug form: TAB, Q8H, Dosing Weight 63.636, kg, Start d ate: 10/24/15 16:00:00 CDT, Duration: 30 day, Stop date: 11/23/15 8:00:00 CDT Notes: (Same as: Rythmol) Start Date: 10/24/15 Stop Date: 10/25/15 Status: Discontinued Protonix 40 mg, 1 tab, Route: PO, Drug form: ECTAB, Before Dinner, Start date: 10/24/15 1 6:30:00 CDT, Duration: 30 day, Stop date: 11/22/15 16:30:00 CDT Notes: Tablet should not be chewed or crushed.(Same as: Protonix) Start Date: 10/24/15 Stop Date: 10/25/15 Status: Discontinued Tylenol 650 mg, Route: PO, Drug form: TAB, ONCE, Dosing Weight 63.636, kg, Priority: STA T, Start date: 10/24/15 9:51:00 CDT, Stop date: 10/24/15 9:51:00 CDT Start Date: 10/24/15 Stop Date: 10/24/15 Status: Completed Vitamin C 500 mg, 1 tab, Route: PO, Drug form: TAB, Daily, Dosing Weight 63.636, kg, Start date: 10/25/15 9:00:00 CDT, Duration: 30 day, Stop date: 11/23/15 9:00:00 CDT Notes: (Same as: Vitamin C) Start Date: 10/25/15 Stop Date: 10/25/15 Status: Discontinued Xarelto 15 mg, 1 tab, Route: PO, Drug form: TAB, QPM, Dosing Weight 63.636, kg, Start da te: 10/24/15 17:00:00 CDT, Duration: 30 day, Stop date: 11/22/15 17:00:00 CDT Notes: (Same as: Xarelto)Administer with food Start Date: 10/24/15 Stop Date: 10/25/15 Status: Discontinued Results ELECTROLYTES 1 2 3 Most recent to oldest [Reference Range]: 136 mEq/L (10/25/15 4:37 AM) 138 mEq/L (10/24/15 4:48 PM) 136 mEq/L (10/24/15 5:56 AM) Sodium Lvl [135-145 mEq/L] 3.5 mEq/L (10/25/15 4:37 AM) 3.5 mEq/L (10/24/15 4:48 PM) 4.0 mEq/L (10/24/15 5:56 AM) Potassium Lvl [3.5-5.1 mEq/L] 101 mEq/L (10/25/15 4:37 AM) 100 mEq/L (10/24/15 4:48 PM) 98 mEq/L (10/24/15 5:56 AM) Chloride Lvl [95-109 mEq/L] 24 mEq/L (10/25/15 4:37 AM) 25 mEq/L (10/24/15 4:48 PM) 30 mEq/L (10/24/15 5:56 AM) CO2 [24-32 mEq/L] 14.5 mEq/L (10/25/15 4:37 AM) 16.5 mEq/L (10/24/15 4:48 PM) 12.0 mEq/L (10/24/15 5:56 AM) AGAP [10.0-20.0 mEq/L] CHEM PANEL 1 2 3 Most recent to oldest [Reference Range]: 1.23 mg/dL (10/25/15 4:37 AM) 1.17 mg/dL (10/24/15 4:48 PM) 1.19 mg/dL (10/24/15 5:56 AM) Creatinine Lvl [0.50-1.40 mg/dL] 42 mL/min/1.73m2 1 *NA* (10/25/15 4:37 AM) 45 mL/min/1.73m2 2 *NA* (10/24/15 4:48 PM) 44 mL/min/1.73m2 3 *NA* (10/24/15 5:56 AM) eGFR 16 mg/dL (10/25/15 4:37 AM) 17 mg/dL (10/24/15 4:48 PM) 18 mg/dL (10/24/15 5:56 AM) BUN [7-22 mg/dL] 13 (10/25/15 4:37 AM) 15 (10/24/15 4:48 PM) B/C Ratio [6-25] 98 mg/dL (10/25/15 4:37 AM) 105 mg/dL *HI* (10/24/15 4:48 PM) 133 mg/dL *HI* (10/24/15 5:56 AM) Glucose Lvl [70-99 mg/dL] 6.9 g/dL (10/25/15 4:37 AM) 7.6 g/dL (10/24/15 4:48 PM) Total Protein [6.4-8.4 g/dL] 3.3 g/dL *LOW* (10/25/15 4:37 AM) 3.5 g/dL (10/24/15 4:48 PM) Albumin Lvl [3.5-5.0 g/dL] 3.6 g/dL (10/25/15 4:37 AM) 4.1 g/dL *HI* (10/24/15 4:48 PM) Globulin [2.0-4.0 g/dL] 0.9 (10/25/15 4:37 AM) 0.9 (10/24/15 4:48 PM) A/G Ratio [0.7-1.6] 8.5 mg/dL (10/25/15 4:37 AM) 8.6 mg/dL (10/24/15 4:48 PM) 9.5 mg/dL (10/24/15 5:56 AM) Calcium Lvl [8.5-10.5 mg/dL] 3.9 mg/dL (10/25/15 4:37 AM) 3.5 mg/dL (10/24/15 5:56 AM) Phosphorus [2.5-4.5 mg/dL] 2.1 mg/dL (10/25/15 4:37 AM) 2.1 mg/dL (10/24/15 5:56 AM) Magnesium Lvl [1.8-2.4 mg/dL] 19 unit/L (10/25/15 4:37 AM) 24 unit/L (10/24/15 4:48 PM) ALT [0-65 unit/L] 20 unit/L (10/25/15 4:37 AM) 22 unit/L (10/24/15 4:48 PM) AST [0-37 unit/L] 211 unit/L *HI* (10/25/15 4:37 AM) 230 unit/L *HI* (10/24/15 4:48 PM) Alk Phos [39-136 unit/L] 0.5 mg/dL (10/25/15 4:37 AM) 0.6 mg/dL (10/24/15 4:48 PM) Bili Total [0.2-1.3 mg/dL] 40.0 uMol/L (10/24/15 4:48 PM) Ammonia [<=45.0 uMol/L] 1.7 mmol/L (10/24/15 5:56 AM) Lactic Acid WB [0.5-2.2 mmol/L] 1Result Comment: The eGFR is calculated using [...] be mul tiplied by the estimated BMI. CARDIAC ENZYMES 1 2 3 Most recent to oldest [Reference Range]: <0.02 ng/mL (10/24/15 4:48 PM) <0.02 ng/mL (10/24/15 5:56 AM) Troponin-I [0.00-0.40 ng/mL] 367 pg/mL *HI* (10/24/15 4:48 PM) BNP [<=100 pg/mL] DRUG SCREEN 1 2 3 Most recent to oldest [Reference Range]: Negative *NA* (10/24/15 5:56 AM) U Amph Scr [Negative] Negative *NA* (10/24/15 5:56 AM) U Divya Scr [Negative] Negative *NA* (10/24/15 5:56 AM) U Benzodia Scr [Negative] Negative *NA* (10/24/15 5:56 AM) U Cocaine Scr [Negative] Negative *NA* (10/24/15 5:56 AM) U Opiate Scr [Negative] Negative *NA* (10/24/15 5:56 AM) U Phencyc Scr [Negative] Negative *NA* (10/24/15 5:56 AM) U Cannab Scr [Negative] See Note *NA* (10/24/15 5:56 AM) UDS Note TOXICOLOGY 1 2 3 Most recent to oldest [Reference Range]: <0.003 % (10/24/15 5:56 AM) Etoh (%) <3.0 mg/dL (10/24/15 5:56 AM) Ethanol Lvl URINE AND STOOL 1 2 3 Most recent to oldest [Reference Range]: Clear (10/24/15 4:48 PM) Clear (10/24/15 5:56 AM) UA Turbidity [Clear] Yellow *NA* (10/24/15 4:48 PM) Yellow *NA* (10/24/15 5:56 AM) UA Color [Yellow] 7.0 (10/24/15 4:48 PM) UA pH [5.0-8.0] 7.0 (10/24/15 5:56 AM) UA pH [5.0-8.0] 1.006 (10/24/15 4:48 PM) UA Spec Grav [<=1.030] 1.010 (10/24/15 5:56 AM) UA Spec Grav [<=1.030] Negative mg/dL *NA* (10/24/15 4:48 PM) Negative mg/dL (10/24/15 5:56 AM) UA Glucose [Negative mg/dL] Negative (10/24/15 4:48 PM) Negative (10/24/15 5:56 AM) UA Blood [Negative] Negative mg/dL *NA* (10/24/15 4:48 PM) Negative mg/dL *NA* (10/24/15 5:56 AM) UA Ketones [Negative mg/dL] Negative mg/dL (10/24/15 4:48 PM) Negative mg/dL (10/24/15 5:56 AM) UA Protein [Negative mg/dL] <=1.0 mg/dL *NA* (10/24/15 4:48 PM) UA Urobilinogen [0.1-1.0 mg/dL] 0.2 EU/dL (10/24/15 5:56 AM) UA Urobilinogen [0.1-1.0 EU/dL] Negative *NA* (10/24/15 4:48 PM) Negative *NA* (10/24/15 5:56 AM) UA Bili [Negative] Negative (10/24/15 4:48 PM) Negative (10/24/15 5:56 AM) UA Leuk Est [Negative] Negative (10/24/15 4:48 PM) Negative (10/24/15 5:56 AM) UA Nitrite [Negative] 1 /HPF (10/24/15 4:48 PM) UA WBC [0-5 /HPF] None Seen (10/24/15 5:56 AM) UA WBC [None Seen] None Seen (10/24/15 5:56 AM) UA RBC [0-2] Occasional /HPF (10/24/15 5:56 AM) UA Bacteria [None Seen /HPF] None Seen *NA* (10/24/15 4:48 PM) UA Sq Epi Rare /LPF (10/24/15 5:56 AM) UA Sq Epi [Few /LPF] Rare /LPF (10/24/15 5:56 AM) UA Mucus [None Seen /LPF] HEMATOLOGY 1 2 3 Most recent to oldest [Reference Range]: 4.6 K/CMM (10/25/15 4:37 AM) 6.1 K/CMM (10/24/15 5:56 AM) WBC [3.7-10.4 K/CMM] 3.57 M/CMM *LOW* (10/25/15 4:37 AM) 3.86 M/CMM *LOW* (10/24/15 5:56 AM) RBC [4.20-5.40 M/CMM] 11.6 g/dL *LOW* (10/25/15 4:37 AM) 12.3 g/dL (10/24/15 5:56 AM) Hgb [12.0-16.0 g/dL] 34.3 % *LOW* (10/25/15 4:37 AM) 37.2 % (10/24/15 5:56 AM) Hct [36.0-48.0 %] 96.1 fL (10/25/15 4:37 AM) 96.4 fL (10/24/15 5:56 AM) MCV [80.0-98.0 fL] 32.6 pg *HI* (10/25/15 4:37 AM) 31.9 pg *HI* (10/24/15 5:56 AM) MCH [27.0-31.0 pg] 33.9 g/dL (10/25/15 4:37 AM) 33.1 g/dL (10/24/15 5:56 AM) MCHC [32.0-36.0 g/dL] 12.3 % (10/25/15 4:37 AM) 12.5 % (10/24/15 5:56 AM) RDW [11.5-14.5 %] 139 K/CMM (10/25/15 4:37 AM) 170 K/CMM (10/24/15 5:56 AM) Platelet [133-450 K/CMM] 10.4 fL (10/25/15 4:37 AM) 10.3 fL (10/24/15 5:56 AM) MPV [7.4-10.4 fL] 48.8 % (10/25/15 4:37 AM) 60.3 % (10/24/15 5:56 AM) Segs [45.0-75.0 %] 31.7 % (10/25/15 4:37 AM) 23.7 % (10/24/15 5:56 AM) Lymphocytes [20.0-40.0 %] 15.7 % *HI* (10/25/15 4:37 AM) 12.8 % *HI* (10/24/15 5:56 AM) Monocytes [2.0-12.0 %] 3.4 % (10/25/15 4:37 AM) 2.9 % (10/24/15 5:56 AM) Eosinophils [0.0-4.0 %] 0.4 % (10/25/15 4:37 AM) 0.3 % (10/24/15 5:56 AM) Basophils [0.0-1.0 %] 2.2 K/CMM (10/25/15 4:37 AM) 3.7 K/CMM (10/24/15 5:56 AM) Segs-Bands # [1.5-8.1 K/CMM] 1.5 K/CMM (10/25/15 4:37 AM) 1.4 K/CMM (10/24/15 5:56 AM) Lymphocytes # [1.0-5.5 K/CMM] 0.7 K/CMM (4/17/16 4:37 AM) 0.8 K/CMM (10/24/15 5:56 AM) Monocytes # [0.0-0.8 K/CMM] 0.2 K/CMM (10/25/15 4:37 AM) 0.2 K/CMM (10/24/15 5:56 AM) Eosinophils # [0.0-0.5 K/CMM] 25.3 seconds *HI* (10/25/15 4:37 AM) 15.7 seconds *HI* (10/24/15 4:48 PM) PT [12.0-14.7 seconds] 2.26 *HI* (10/25/15 4:37 AM) 1.22 *HI* (10/24/15 4:48 PM) INR [0.85-1.17] 40.5 seconds *HI* (10/25/15 4:37 AM) PTT [22.9-35.8 seconds] Immunizations Vaccine Date Refusal Reason pneumococcal 23-valent [...] No Assessment and Plan Extracted from: Title: Hospitalist History and Author: Earl Og MD Date: 10/24/15 Physical Assessment/Plan 1.H/o CHF Diastolic dysfunction, ischemic, EF 60-65% per echo 10/22 - c/w ASA, statin and BB 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 - c/w ASA, statin and BB 3.Hx of completed stroke old, s/p CEA, history is concerning for repeat CVA - new MRI will happen when MRI is able to complete the study 4.Confusion CT head negative, MRI cannot be done 2/2 the type of AICD 5.Cirrhosis has not [...] CDT amLODIPine, 5 mg=1 tab, PO, Daily, [place], # 90 tab, 0 Refill(s) amLODIPine, 5 mg, 1 tab, Route: PO, Drug form: TAB, Daily, Dosing Weight 63.636, kg, Start date: 10/25/15 9:00:00 CDT, Duration: 30 day, Stop date: 11/23/15 9:00:00 CDT ascorbic acid, 500 mg=1 tab, PO, Daily, [place], # 90 tab, 0 Refill(s) ascorbic acid, 500 mg, 1 tab, Route: PO, Drug form: TAB, Daily, Dosing Weight 63.636, kg, Start date: 10/25/15 9:00:00 CDT, Duration: 30 day, Stop date: 11/23/15 9:00:00 CDT aspirin, 81 mg=1 tab, PO, Daily, [place], # 90 tab, 0 Refill(s) aspirin, 81 mg, 1 tab, Route: PO, Drug form: ECTAB, Daily, Dosing Weight 63.636, kg, Start date: 10/25/15 9:00:00 CDT, Duration: 30 day, Stop date: 11/23/15 9:00:00 CDT atorvastatin, 20 mg=1 tab, PO, Bedtime, [place], # 90 tab, 0 Refill(s) atorvastatin, 20 mg, 1 tab, Route: PO, Drug form: TAB, Bedtime, Dosing Weight 63.636, kg, Start date: 10/24/15 21:00:00 CDT, Duration: 30 day, Stop date: 11/22/15 21:00:00 CDT carvedilol, 12.5 mg=1 tab, PO, BID, [place], # 120 tab, 0 Refill(s) carvedilol, 12.5 mg, 1 tab, Route: PO, Drug form: TAB, BID, Dosing Weight 63.636, kg, Start date: 10/24/15 17:00:00 CDT, Duration: 30 day, Stop date: 11/23/15 9:00:00 CDT furosemide, 40 mg=1 tab, PO, BID, (water pill), [place], # 90 caplet, 0 Refill(s) furosemide, 40 [...] CDT levothyroxine, 100 microgram=1 tab, PO, QAM, [place], # 90 tab, 0 Refill(s) levothyroxine, 100 microgram, 1 tab, Route: PO, Drug form: TAB, Before Breakfast, Dosing Weight 63.636, kg, Start date: 10/25/15 7:30:00 CDT, Duration: 30 day, Stop date: 11/23/15 7:30:00 CDT omeprazole, 40 mg=1 cap, PO, Daily, [place], # 90 cap, 0 Refill(s) pantoprazole, 40 mg, 1 tab, Route: PO, Drug form: ECTAB, Before Dinner, Start date: 10/24/15 16:30:00 CDT, Duration: 30 day, Stop date: 11/22/15 16:30:00 CDT propafenone, 150 mg=1 tab, PO, Q8H, [place], # 90 tab, 0 Refill(s) propafenone, 150 mg, 1 tab, Route: PO, Drug form: TAB, Q8H, Dosing Weight 63.636, kg, Start date: 10/24/15 16:00:00 CDT, Duration: 30 day, Stop date: 11/23/15 8:00:00 CDT rivaroxaban, 15 mg=1 tab, PO, QPM, [place], # 90 tab, 0 Refill(s) rivaroxaban, 15 [...] Prophylaxis ambulation [id number]
--- OUTSIDE RECORDS SUMMARY | 2019-01-11 14:04 | XMS REPORT | Summary of Care ---
Author Author [facility] Organization [facility] Address Unknown Phone Unavailable Encounter MANNY Flores(THIERRY) [id number] Date(s): 02/02/15 - 02/02/15 [facility] [address] [employer] provided by [facility] [employer] [facility] [employer] [place] [address]- Discharge Diagnosis: Neck pain Discharge Disposition: Home Attending Physician: Griffin Juan MD Vital Signs 1 2 3 Most recent to oldest [Reference Range]: 98.1 DegF (02/02/15 1:17 PM) 98.0 DegF (02/02/15 12:40 PM) Temperature Oral [96.4-99.1 DegF] 1 2 3 Most recent to oldest [Reference Range]: 141/67 mmHg *HI* (02/02/15 2:34 PM) 141/65 mmHg *HI* (02/02/15 2:02 PM) 133/62 mmHg (02/02/15 1:17 PM) Blood Pressure [90-140/60-90 mmHg] 1 2 3 Most recent to oldest [Reference Range]: 17 BRMIN (02/02/15 2:34 PM) 27 BRMIN *HI* (02/02/15 2:02 PM) 23 BRMIN *HI* (02/02/15 1:17 PM) Respiratory Rate [14-20 BRMIN] 1 2 3 Most recent to oldest [Reference Range]: 64 bpm (02/02/15 12:40 PM) Peripheral Pulse Rate [60-100 bpm] 1 2 3 Most recent to oldest [Reference Range]: 65.909 kg (02/02/15 12:40 PM) Weight Problem List Condition Effective Dates Status Health Status Informant Afib(Confirmed) Resolved AMI - Acute Resolved myocardial infarction(Confirmed ) Cardiac pacemaker Resolved implant(Confirmed) Chronic Resolved CHF(Confirmed) Heart Resolved failure(Confirmed) HTN Resolved (hypertension)(Confi rmed) Hypertension(Confirm Resolved ed) Allergies, Adverse Reactions, Alerts Substance Reaction Severity Status NKDA Active NKFA Active Medications ibuprofen 600 mg, 1 tab, Route: PO, Drug form: TAB, ONCE, Dosing Weight 65.909, kg, Priori ty: STAT, Start date: 02/02/15 13:44:00, Stop date: 02/02/15 13:44:00 Notes: (Same as: Motrin)"Do Not Crush" Take with food. Start Date: 02/02/15 Stop Date: 02/02/15 Status: Completed Results ELECTROLYTES Most recent to 1 oldest [Reference Range]: Sodium Lvl [135-145 138 mEq/L mEq/L] (02/02/15 1:31 PM) Potassium Lvl 4.2 mEq/L 1 [3.5-5.1 mEq/L] (02/02/15 1:31 PM) Chloride Lvl [95-109 100 mEq/L mEq/L] (02/02/15 1:31 PM) CO2 [24-32 mEq/L] 26 mEq/L (02/02/15 1:31 PM) AGAP [10.0-20.0 16.2 mEq/L mEq/L] (02/02/15 1:31 PM) 1Result Comment: Specimen Slightly Hemolyzed. CHEM PANEL Most recent to 1 oldest [Reference Range]: Creatinine Lvl 1.4 mg/dL [0.5-1.4 mg/dL] (02/02/15 1:31 PM) eGFR 36 mL/min/1.73m2 2 *NA* (02/02/15 1:31 PM) BUN [7-22 mg/dL] 23 mg/dL *HI* (02/02/15 1:31 PM) Glucose Lvl [70-99 97 mg/dL mg/dL] (02/02/15 1:31 PM) Calcium Lvl 9.1 mg/dL [8.5-10.5 mg/dL] (02/02/15 1:31 PM) 2Result Comment: The eGFR is calculated using [...] tiplied by the estimated BMI. CARDIAC ENZYMES Most recent to 1 oldest [Reference Range]: Troponin-I <0.02 ng/mL [0.00-0.40 ng/mL] (02/02/15 1:31 PM) HEMATOLOGY Most recent to 1 oldest [Reference Range]: WBC [3.7-10.4 K/CMM] 7.5 K/CMM (02/02/15 1:31 PM) RBC [4.20-5.40 3.74 M/CMM M/CMM] *LOW* (02/02/15 1:31 PM) Hgb [12.0-16.0 g/dL] 10.5 g/dL *LOW* (02/02/15 1:31 PM) Hct [36.0-48.0 %] 32.4 % *LOW* (02/02/15 1:31 PM) MCV [80.0-98.0 fL] 86.7 fL (02/02/15 1:31 PM) MCH [27.0-31.0 pg] 28.0 pg (02/02/15 1:31 PM) MCHC [32.0-36.0 32.3 g/dL g/dL] (02/02/15 1:31 PM) RDW [11.5-14.5 %] 16.1 % *HI* (02/02/15 1:31 PM) Platelet [133-450 138 K/CMM K/CMM] (02/02/15 1:31 PM) MPV [7.4-10.4 fL] 10.9 fL *HI* (02/02/15 1:31 PM) Segs [45.0-75.0 %] 64.1 % (02/02/15 1:31 PM) Lymphocytes 23.8 % [20.0-40.0 %] (02/02/15 1:31 PM) Monocytes [2.0-12.0 10.5 % %] (02/02/15 1:31 PM) Eosinophils [0.0-4.0 1.1 % %] (02/02/15 1:31 PM) Basophils [0.0-1.0 0.5 % %] (02/02/15 1:31 PM) Segs-Bands # 4.8 K/CMM [1.5-8.1 K/CMM] (02/02/15 1:31 PM) Lymphocytes # 1.8 K/CMM [1.0-5.5 K/CMM] (02/02/15 1:31 PM) Monocytes # [0.0-0.8 0.8 K/CMM K/CMM] (02/02/15 1:31 PM) Eosinophils # 0.1 K/CMM [0.0-0.5 K/CMM] (02/02/15 1:31 PM) Immunizations Vaccine Date Refusal Reason pneumococcal [...]
--- OUTSIDE RECORDS SUMMARY | 2019-01-11 14:04 | XMS REPORT | Summary of Care ---
Author Organization Unknown Address Unknown Phone Unavailable Encounter MANNY Flores(THIERRY) [id number] Date(s): 10/30/14 - 10/30/14 [facility] [address] [employer] provided by [facility] [employer] [place] [address]- Discharge Diagnosis: Nausea and vomiting Discharge Diagnosis: Cough Discharge Diagnosis: Creatinine elevation Discharge Disposition: Home Physician Attending: Laurel Worthy MD Vital Signs 1 2 3 Most recent to oldest [Reference Range]: 98.7 DegF (10/30/14 5:02 PM) Temperature Oral [96.4-99.1 DegF] 140/64 mmHg (10/30/14 10:38 PM) 172/77 mmHg *HI* (10/30/14 8:00 PM) 136/77 mmHg (10/30/14 5:02 PM) Blood Pressure [90-140/60-90 mmHg] 22 BRMIN *HI* (10/30/14 10:38 PM) 23 BRMIN *HI* (10/30/14 8:55 PM) 19 BRMIN (10/30/14 8:00 PM) Respiratory Rate [14-20 BRMIN] 83 bpm (10/30/14 5:02 PM) Peripheral Pulse Rate [60-100 bpm] 68.002 kg (10/30/14 5:02 PM) Weight Problem List Condition Effective Dates Status Health Status Informant Heart Resolved failure(Confirmed) Hypertension(Confirm Resolved ed) Allergies, Adverse Reactions, Alerts Substance Reaction Severity Status NKDA Active Medications aspirin 325 mg, 1 tab, Route: PO, Drug form: TAB, ONCE, Dosing Weight 68.002, kg, Priori ty: STAT, Start date: 10/30/14 19:59:00, Stop date: 10/30/14 19:59:00 Start Date: 10/30/14 Stop Date: 10/30/14 Status: Completed ibuprofen 600 mg, Route: PO, ONCE, Dosing Weight 68.002, kg, Priority: STAT, Start date: 0 10/30/14 19:58:00, Stop date: 10/30/14 19:58:00 Start Date: 10/30/14 Stop Date: 10/30/14 Status: Discontinued morphine Sulfate 4 mg, 1 mL, Route: IVP, Drug form: INJ, ONCE, Dosing Weight 68.002, kg, Priority : STAT, Start date: 10/30/14 19:58:00, Stop date: 10/30/14 19:58:00 Notes: (Same as:MORPhine Sulfate) Start Date: 10/30/14 Stop Date: 10/30/14 Status: Completed normal saline inhalation solution 1 bottle, INHALATION, Bedtime, # 1 btl, 3 Refill(s) Start Date: 10/30/14 Status: Ordered NS (Bolus) IV 250 mL, 250 ml/hr, Infuse Over: 1 hr, Route: IV, 250, Drug form: INJ, ONCE, Prio rity: STAT, Dosing Weight 68.002 kg, Start date: 10/30/14 19:59:00, Duration: 1 doses or times, Stop date: 10/30/14 19:59:00 Start Date: 10/30/14 Stop Date: 10/30/14 Status: Completed ondansetron 4 mg, 2 mL, Route: IVP, Drug form: INJ, ONCE, Dosing Weight 68.002, kg, Priority : STAT, Start date: 10/30/14 19:58:00, Stop date: 10/30/14 19:58:00 Notes: (Same as: Zofran) MEDICATION WASTE Product Size: 4 mgProduct Was sherlyn: ___ mg Start Date: 10/30/14 Stop Date: 10/30/14 Status: Completed Tessalon Perles 100 mg oral capsule 100 mg=1 cap, PO, TID, PRN Cough/Congestion, X 7 day, # 21 cap, 0 Refill(s) Start Date: 10/30/14 Stop Date: 11/06/14 Status: Ordered Zofran 4 mg oral tablet 4 mg=1 tab, PO, BID, PRN Nausea, X 5 day, # 10 tab, 0 Refill(s) Start Date: 10/30/14 Stop Date: 11/04/14 Status: Ordered Results ELECTROLYTES Most recent to 1 oldest [Reference Range]: Sodium Lvl [135-145 134 mEq/L mEq/L] *LOW* (10/30/14 8:25 PM) Potassium Lvl 3.7 mEq/L [3.5-5.1 mEq/L] (10/30/14 8:25 PM) Chloride Lvl [95-109 94 mEq/L mEq/L] *LOW* (10/30/14 8:25 PM) CO2 [24-32 mEq/L] 27 mEq/L (10/30/14 8:25 PM) AGAP [10.0-20.0 16.7 mEq/L mEq/L] (10/30/14 8:25 PM) CHEM PANEL Most recent to 1 oldest [Reference Range]: Creatinine Lvl 1.6 mg/dL [0.5-1.4 mg/dL] *HI* (10/30/14 8:25 PM) eGFR 31 mL/min/1.73m2 1 *NA* (10/30/14 8:25 PM) BUN [7-22 mg/dL] 18 mg/dL (10/30/14 8:25 PM) B/C Ratio [6-25] 11 (10/30/14 8:25 PM) Glucose Lvl [70-99 123 mg/dL 2 mg/dL] *HI* (10/30/14 8:25 PM) Total Protein 8.9 g/dL [6.4-8.4 g/dL] *HI* (10/30/14 8:25 PM) Albumin Lvl [3.5-5.0 4.0 g/dL g/dL] (10/30/14 8:25 PM) Globulin [2.0-4.0 4.9 g/dL g/dL] *HI* (10/30/14 8:25 PM) A/G Ratio [0.7-1.6] 0.8 (10/30/14 8:25 PM) Calcium Lvl 9.1 mg/dL [8.5-10.5 mg/dL] (10/30/14 8:25 PM) Phosphorus [2.5-4.5 3.0 mg/dL mg/dL] (10/30/14 8:25 PM) Magnesium Lvl 2.1 mg/dL [1.8-2.4 mg/dL] (10/30/14 8:25 PM) ALT [0-65 unit/L] 14 unit/L (10/30/14 8:25 PM) AST [0-37 unit/L] 33 unit/L (10/30/14 8:25 PM) Alk Phos [39-136 231 unit/L unit/L] *HI* (10/30/14 8:25 PM) Bili Total [0.2-1.3 1.0 mg/dL mg/dL] (10/30/14 8:25 PM) 1Result Comment: The eGFR is calculated [...] be mul tiplied by the estimated BMI. 2Interpretive Data: Adult reference range values reflect the clinical guidelines of the [place] [employer]. CARDIAC ENZYMES Most recent to 1 oldest [Reference Range]: Total CK [12-191 77 unit/L unit/L] (10/30/14 8:25 PM) Troponin-I <0.02 ng/mL [0.00-0.40 ng/mL] (10/30/14 8:25 PM) HEMATOLOGY Most recent to 1 oldest [Reference Range]: WBC [3.7-10.4 K/CMM] 4.7 K/CMM (10/30/14 8:25 PM) RBC [4.20-5.40 3.89 M/CMM M/CMM] *LOW* (10/30/14 8:25 PM) Hgb [12.0-16.0 g/dL] 12.2 g/dL (10/30/14 8:25 PM) Hct [36.0-48.0 %] 36.1 % (10/30/14 8:25 PM) MCV [80.0-98.0 fL] 92.9 fL (10/30/14 8:25 PM) MCH [27.0-31.0 pg] 31.3 pg *HI* (10/30/14 8:25 PM) MCHC [32.0-36.0 33.7 g/dL g/dL] (10/30/14 8:25 PM) RDW [11.5-14.5 %] 14.2 % (10/30/14 8:25 PM) Platelet [133-450 87 K/CMM K/CMM] *LOW* (10/30/14 8:25 PM) MPV [7.4-10.4 fL] 9.4 fL (10/30/14 8:25 PM) Segs [45.0-75.0 %] 58.1 % (10/30/14 8:25 PM) Lymphocytes 25.5 % [20.0-40.0 %] (10/30/14 8:25 PM) Monocytes [2.0-12.0 13.6 % %] *HI* (10/30/14 8:25 PM) Eosinophils [0.0-4.0 2.4 % %] (10/30/14 8:25 PM) Basophils [0.0-1.0 0.4 % %] (10/30/14 8:25 PM) Segs-Bands # 2.8 K/CMM [1.5-8.1 K/CMM] (10/30/14 8:25 PM) Lymphocytes # 1.2 K/CMM [1.0-5.5 K/CMM] (10/30/14 8:25 PM) Monocytes # [0.0-0.8 0.6 K/CMM K/CMM] (10/30/14 8:25 PM) Eosinophils # 0.1 K/CMM [0.0-0.5 K/CMM] (10/30/14 8:25 PM) Basophils # [0.0-0.2 0.0 K/CMM K/CMM] (10/30/14 8:25 PM) PT [12.0-14.7 25.8 seconds seconds] *HI* (10/30/14 8:25 PM) INR [0.85-1.17] 2.28 3 *HI* (10/30/14 8:25 PM) PTT [22.9-35.8 55.8 seconds 4 seconds] *HI* (10/30/14 8:25 PM) 3Interpretive Data: RECOMMENDED RANGES FOR PROTIME INR: 2.0-3.0 for most medical and surgical thromboembolic states. 2.5-3.5 for artificial heart valves and recurrent embolism. INR SHOULD BE USED ONLY FOR PATIENTS ON STABLE ANTICOAGULANT THERAPY. 4Interpretive Data: Heparin Therapeutic Range: 57 - 92 Seconds Immunizations No data available for this section Procedures Procedure Date Related Diagnosis Body Site Cardiac pacemaker procedure Social History Social History Type Response Smoking Status Never smoker; Exposure to Tobacco Smoke None; Cigarette Smoking Last 365 Days No; Reg Smoking Cessation Counseling No Assessment and Plan No data available for this section
--- OUTSIDE RECORDS SUMMARY | 2019-01-11 14:04 | XMS REPORT | Summary of Care ---
Author Organization Unknown Address Unknown Phone Unavailable Encounter HQ Mark(THIERRY) [id number] Date(s): 11/29/14 - 11/29/14 [facility] [address] [employer] Services provided by [employer] [facility] [place] [address]- Discharge Disposition: Not Seen Physician Attending: Veronica Chairez MD Vital Signs Most recent to 1 2 oldest [Reference Range]: Height 152.4 cm (11/29/14 3:25 PM) Temperature Oral 97.6 DegF 97.8 DegF [96.4-99.1 DegF] (11/29/14 5:37 PM) (11/29/14 3:25 PM) Blood Pressure 155/85 mmHg 136/79 mmHg [90-140/60-90 mmHg] *HI* (11/29/14 3:25 PM) (11/29/14 5:37 PM) Respiratory Rate 20 BRMIN 20 BRMIN [14-20 BRMIN] (11/29/14 5:37 PM) (11/29/14 3:25 PM) Peripheral Pulse 82 bpm 69 bpm Rate [60-100 bpm] (11/29/14 5:37 PM) (11/29/14 3:25 PM) Weight 90.909 kg (11/29/14 3:25 PM) Body Mass Index 39.14 m2 (11/29/14 3:25 PM) Problem List Condition Effective Dates Status Health Status Informant Heart Resolved failure(Confirmed) Hypertension(Confirm Resolved ed) Allergies, Adverse Reactions, Alerts Substance Reaction Severity Status NKDA Active Medications No data available for this section Results No data available for this section Immunizations No data available for this section Procedures Procedure Date Related Diagnosis Body Site Cardiac pacemaker procedure Social History Social History Type Response Smoking Status Never smoker; Exposure to Tobacco Smoke None; Cigarette Smoking Last 365 Days No; Reg Smoking Cessation Counseling No Assessment and Plan No data available for this section
--- OUTSIDE RECORDS SUMMARY | 2019-01-11 14:04 | XMS REPORT | Summary of Care ---
Author Author [facility] Organization [facility] Address Unknown Phone Unavailable Encounter HQ Mark(FIN) [id number] Date(s): 08/03/18 - 08/03/18 [facility] [address] [place] [address]- [phone] Discharge Disposition: Home or Self Care Attending Physician: Erick Vázquez MD Referring Physician: Erick Vázquez MD Vital Signs No data available for this section Problem List Condition Effective Dates Status Health Status Informant Afib(Confirmed) Active AMI - Acute Resolved myocardial infarction(Confirmed ) Cardiac pacemaker Active implant(Confirmed) Chronic Active CHF(Confirmed) CAD (coronary artery Active disease)(Confirmed) Heart Active failure(Confirmed) HTN Active (hypertension)(Confi rmed) Hypertension(Confirm Resolved ed) Allergies, Adverse Reactions, Alerts Substance Reaction Severity Status NKFA Active NKDA Active Medications No data available for this section Results No data available for this section Immunizations Not Given Vaccine Date Status Refusal Reason pneumococcal 23-valent vaccine1 12/03/14 Not Given Patient Refuses 1Result Note: already received in 2013 Procedures Procedure Date Related Diagnosis Body Site Status CABG - Coronary artery bypass graft Completed Cardiac catheterisation Completed Cardiac pacemaker procedure Completed CEIOL - Cataract extraction and insertion of Completed intraocular lens section Completed Colonoscopy Completed Insertion of carotid artery stent Completed Social History Social History Type Response Alcohol Never Smoking Status Never smoker; Exposure to Tobacco Smoke None; Cigarette Smoking Last 365 Days No; Reg Smoking Cessation Counseling No entered on: 07/16/18 Assessment and Plan No data available for this section
--- OUTSIDE RECORDS SUMMARY | 2019-01-11 14:05 | XMS REPORT ---
Author Author [facility] Address Unknown Phone Unavailable Care Team Providers Care Director Of Content And Programming Name Role Phone Luis Eduardo BRODY Unavailable Unavailable Problems This patient has no known problems. Allergies, Adverse Reactions, Alerts This patient has no known allergies or adverse reactions. Medications This patient has no known medications. Results Test Description Test Time Test Comments Text Results Atomic Results Result Comments SCR MAMM BILATERAL CAD DIGITAL 2018-12-24 09:35:09 - SCR MAMM BILATERAL CAD DIGITALBILATERAL DIGITAL SCREENING MAMMOGRAM WITH CAD: 12/21/2018CLINICAL: Asymptomatic. Current mammographic images were evaluated by either a [employer] M- Vu or a [employer] ImageChecker CAD (computer aided detection system). Comparison is made to exams dated 12/19/2017 mammogram, 11/21/2016 mammogram, and 08/28/2015 mammogram - [facility]. There are scattered fibroglandular tissues in both breasts. There are benign vascular calcifications in both breasts. There is a mole marker on the left breast. A mechanical device is noted in the superior left breast on the MLO view, posterior depth, limiting evaluation of the underlying region.No suspicious mass, architectural distortion, malignant type calcification, or lymph node abnormality detected. Breast architecture is stable compared to prior exams.IMPRESSION: BENIGNThere is no mammographic evidence of malignancy. Resume annual screening mammography in one year. 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 Physician: Ordered by: CONNOR BRODY MD Report #: [id number] Location: ER Room/Bed: Procedure: [id number] DX/CHEST SINGLE (PORTABLE) Exam Date: 05/08/18 Exam [...]
[2019-01-11] MEDS ORDERED: ACETAMINOPHEN 1000 MG/100 ML IV STA (14:36)
[2019-01-11 14:59] LABS: EOSINOPHILS % 0.9 % (0.0-6.0); HEMATOCRIT 36.7 % (34.2-44.1); HEMOGLOBIN 12.4 g/dL (12.0-16.0); LYMPHOCYTES # (AUTO) 0.2 (1.0-3.2); MEAN CORPUSCULAR HEMOGLOBIN 32.1 pg (28-32); MEAN CORPUSCULAR HGB CONC 33.8 g/dL (31-35); MEAN CORPUSCULAR VOLUME 95.1 fL (81-99); MONOCYTES % 0.4 % (4.4-11.3); NEUTROPHILS % 89.8 % (38.7-80.0); PLATELET COUNT 114 x10e3/uL (140-360); RED BLOOD COUNT 3.86 x10e6/uL (3.6-5.1)
[2019-01-11 15:05] LABS: BILIRUBIN,URINE NEGATIVE (NEGATIVE); CLARITY,URINE CLEAR (CLEAR); COLOR,URINE YELLOW (YELLOW); KETONES,URINE NEGATIVE (NEGATIVE); LEUKOCYTE ESTERASE ,URINE LARGE (NEGATIVE); NITRITE,URINE NEGATIVE (NEGATIVE); PROTEIN,URINE DIPSTICK 2+ (NEGATIVE); URINE UROBILINOGEN 0.2 mg/dL (0.2 - 1)
[2019-01-11 15:10] LABS: INR 2.14; PROTHROMBIN TIME 24.6 seconds (11.9-14.5)
[2019-01-11 15:11] LABS: PARTIAL THROMBOPLASTIN TIME 46.8 seconds (23.8-35.5)
[2019-01-11] MEDS ORDERED: CEFEPIME 1GM/NS 0.9% 50 ML 50 ML IV STA (15:14)
[2019-01-11 15:20] LABS: ALBUMIN 4.2 g/dL (3.5-5.0); ALBUMIN/GLOBULIN RATIO 1.1 (0.8-2.0); ANION GAP 19.1 mmol/L (8-16); CALCIUM 9.4 mg/dL (8.4-10.2); CREATININE, SERUM 1.91 mg/dL (0.57-1.11); POTASSIUM 3.1 mmol/L (3.5-5.1)
[2019-01-11 15:21] LABS: BACTERIA,URINE MANY /HPF; WBC,URINE (MAN) 21-50 /HPF (0-5)
[2019-01-11 15:27] LABS: CREATINE KINASE MB 2.3 ng/mL (0-5.0)
--- NOTE | 2019-01-11 15:33 | Diagnostic Imaging Report ---
EXAMINATION: CHEST SINGLE (PORTABLE) INDICATION: Fever, concern for pneumonia COMPARISON: Chest radiograph of 05/08/2018 FINDINGS: TUBES and LINES: Pacer device in the left chest with 3 leads projecting over the right atrium and right ventricle. Median sternotomy wires overlie the midline thorax. LUNGS: The lung volumes are low. There is perihilar fullness and indistinctness of the pulmonary vasculature. PLEURA: No pleural effusion or pneumothorax. HEART AND MEDIASTINUM: The cardiomediastinal silhouette is stably enlarged. BONES AND SOFT TISSUES: No acute fracture or dislocation. UPPER ABDOMEN: No free air under the diaphragm. IMPRESSION: Interstitial pulmonary edema. Stable cardiomegaly. Signed by: Sofia Carreon MD on 01/11/2019 3:30 PM
[2019-01-11] MEDS ORDERED: SODIUM CHLORIDE 0.9% 1000ML 1,000 ML IV SCH (17:30)
[2019-01-11] MEDS ORDERED: SODIUM CHLORIDE 0.9% 1000ML 1,000 ML IV ONE (17:45)
[2019-01-11] MEDS ORDERED: SODIUM CHLORIDE FLUSH 10 ML SYR INJ PRN (18:30)
[2019-01-11] MEDS ORDERED: ONDANSETRON HCL INJ 2MG/ML 2ML 2 MG/ML VIAL IV PRN (18:30)
--- OUTSIDE RECORDS SUMMARY | 2019-01-11 18:41 | XMS REPORT | Continuity of Care Document ---
Author Author [employer] Organization [employer] Address Unknown Phone Unavailable Care Team Providers Care Vehicle Service Agent Name Role Phone [employer] Unavailable Unavailable Problems Problem Status Onset Date Classification Date Reported Comments Source I63.9 Active 08/03/2018 [facility] PACEMAKER DUAL CHAMBER RV LEAD REVISION Active 06/27/2018 [facility] AMS Active 10/23/2015 [facility] ACUTE CONFUSION Active 10/23/2015 [facility] Discharge Diagnosis: Abdominal pain 04/15/2015 04/18/2015 [facility] SOB/FEET SWOLLEN/CANT PASS ANYTHING Active 04/14/2015 [facility] Discharge Diagnosis: Neck pain 02/02/2015 02/05/2015 [facility] 285 - ANEMIA NEC/NOS Active 02/02/2015 [facility] SOB Active 02/02/2015 [facility] CAHF Active 12/04/2014 [facility] DIFFICULTY BREATHING Active 12/02/2014 [facility] PLEURAL EFFUSION Active 12/02/2014 [facility] LWBS Active 11/29/2014 [facility] Discharge Diagnosis: Nausea and vomiting 10/30/2014 11/02/2014 [facility] Discharge Diagnosis: Cough 10/30/2014 11/02/2014 [facility] Discharge Diagnosis: Creatinine elevation 10/30/2014 11/02/2014 [facility] FEVER, VOMITING, NOSE BLEEDS, HEADACHE Active 10/30/2014 [facility] POSSIBLE MINI STROKE Active 10/07/2014 [facility] TIA Active 10/07/2014 [facility] Final: 10/14/2014 [facility] Afib Active Problem 08/06/2018 [facility] Resolved Problem 08/06/2018 [facility] Active Problem 08/06/2018 [facility] Chronic CHF Active Problem 08/06/2018 [facility] CAD (Confirmed) Active Problem 08/06/2018 [facility] Heart failure Active Problem 08/06/2018 [facility], [place],[facility] HTN (Confirmed) Active Problem 08/06/2018 [facility] Hypertension Resolved Problem 08/06/2018 [facility] TRANS CEREB ISCHEMIA NEC Active [facility] PLEURAL EFFUSION NOS Active [facility] CEREBRAL INFARCTION, UNSPECIFIED Active [facility] Medications Medication Details Route Status Patient Instructions Ordering Provider Order Date Source Lactulose 667 MG/ML Oral Solution 20 gm=30 mL, PO, BID, X 30 day, # 1800 mL, 2 Refill(s) Active 10/25/2015 [facility] Omeprazole 40 mg, Route: PO, Drug form: DRC, Daily, Dosing Weight 63.636, kg, Start date: 10/25/15 9:00:00 CDT, Duration: 30 day, Stop date: 11/23/15 9:00:00 CDT No Longer Active 10/25/2015 [facility] Aspirin 81 MG Enteric Coated Tablet 81 mg, 1 tab, Route: PO, Drug form: ECTAB, Daily, Dosing Weight 63.636, kg, Start date: 10/25/15 9:00:00 CDT, Duration: 30 day, Stop date: 11/23/15 9:00:00 CDTNotes: Do not crush or chew. (Same As: Ecotrin) Inactive 10/25/2015 [facility] Amlodipine 5 mg, 1 tab, Route: PO, Drug form: TAB, Daily, Dosing Weight 63.636, kg, Start date: 10/25/15 9:00:00 CDT, Duration: 30 day, Stop date: 11/23/15 9:00:00 CDTNotes: (Same as: Norvasc) Inactive 10/25/2015 [facility] Vitamin C 500 mg, 1 tab, Route: PO, Drug form: TAB, Daily, Dosing Weight 63.636, kg, Start date: 10/25/15 9:00:00 CDT, Duration: 30 day, Stop date: 11/23/15 9:00:00 CDTNotes: (Same as: Vitamin C) Inactive 10/25/2015 [facility] Thyroxine 100 microgram, 1 tab, Route: PO, Drug form: TAB, Before Breakfast, Dosing Weight 63.636, kg, Start date: 10/25/15 7:30:00 CDT, Duration: 30 day, Stop date: 11/23/15 7:30:00 CDTNotes: Take 1 hour before or 2 hours after meal; Enteral feeds may interefere with the absorption of this medication. (Same as:Levothroid, Synthroid) Inactive 10/25/2015 [facility] atorvastatin 20 mg, 1 tab, Route: PO, Drug form: TAB, Bedtime, Dosing Weight 63.636, kg, Start date: 10/24/15 21:00:00 CDT, Duration: 30 day, Stop date: 11/22/15 21:00:00 CDTNotes: (Same As: Lipitor) No Longer Active 10/25/2015 [facility] Lactulose 20 gm, 30 ml, Route: PO, Drug Form: SYRP, Dosing Weight 63.636, kg, TID, Start date: 10/24/15 17:00:00 CDT, Duration: 30 day, Stop date: 11/23/15 13:00:00 CDTNotes: (Same as:Chronulac) No Longer Active 10/24/2015 [facility] Xarelto 15 mg, 1 tab, Route: PO, Drug form: TAB, QPM, Dosing Weight 63.636, kg, Start date: 10/24/15 17:00:00 CDT, Duration: 30 day, Stop date: 11/22/15 17:00:00 CDTNotes: (Same as: Xarelto) Administer with food No Longer Active 10/24/2015 [facility] Furosemide 40 MG Oral Tablet 40 mg, 1 tab, Route: PO, Drug form: TAB, BID, Dosing Weight 63.636, kg, Start date: 10/24/15 17:00:00 CDT, Duration: 30 day, Stop date: 11/23/15 9:00:00 CDTNotes: (Same as: Lasix) May cause GI upset. Give with food or milk. No Longer Active 10/24/2015 [facility] carvedilol 12.5 mg, 1 tab, Route: PO, Drug form: TAB, BID, Dosing Weight 63.636, kg, Start date: 10/24/15 17:00:00 CDT, Duration: 30 day, Stop date: 11/23/15 9:00:00 CDTNotes: Give with food. (Same As: Coreg) No Longer Active 10/24/2015 [facility] Protonix 40 mg, 1 tab, Route: PO, Drug form: ECTAB, Before Dinner, Start date: 10/24/15 16:30:00 CDT, Duration: 30 day, Stop date: 11/22/15 16:30:00 CDTNotes: Tablet should not be chewed or crushed. (Same as: Protonix) No Longer Active 10/24/2015 [facility] Propafenone 150 mg, 1 tab, Route: PO, Drug form: TAB, Q8H, Dosing Weight 63.636, kg, Start date: 10/24/15 16:00:00 CDT, Duration: 30 day, Stop date: 11/23/15 8:00:00 CDTNotes: (Same as: Rythmol) No Longer Active 10/24/2015 [facility] Acetaminophen 650 mg, 2 tab, Route: PO, Drug form: TAB, Q4H, Dosing Weight 63.636, kg, PRN Pain 1-3/Temp > 100.4 F, Start date: 10/24/15 11:51:00 CDT, Duration: 30 day, Stop date: 11/23/15 11:50:00 CDTNotes: Do not exceed 4 gm/day. (Same as: Tylenol) No Longer Active 10/24/2015 [facility] Tylenol 650 mg, Route: PO, Drug form: TAB, ONCE, Dosing Weight 63.636, kg, Priority: STAT, Start date: 10/24/15 9:51:00 CDT, Stop date: 10/24/15 9:51:00 CDT Inactive 10/24/2015 [facility] GI cocktail 30 mL, Route: PO, Drug Form: SUSP, Dosing Weight 65.909, kg, ONCE, STAT, Start date: 04/15/15 0:08:00, Stop date: 04/15/15 0:08:00Notes: G.I. Cocktail=antacid with simethicone 22.5 mL - lidocaine viscous 7.5 mL Inactive 04/15/2015 [facility] Saline Flush 0.9% 10 mL, Route: IVP, Drug Form: INJ, Dosing Weight 65.909, kg, PRN, PRN Line Flush, Start date: 04/14/15 22:07:00, Duration: 30 day, Stop date: 05/14/15 21:06:00Notes: (Same as: BD Posiflush) No Longer Active 04/15/2015 [facility] Ibuprofen 600 mg, 1 tab, Route: PO, Drug form: TAB, ONCE, Dosing Weight 65.909, kg, Priority: STAT, Start date: 02/02/15 13:44:00, Stop date: 02/02/15 13:44:00Notes: (Same as: Motrin) "Do Not Crush" Take with food. Inactive 02/02/2015 [facility] Sodium Chloride 0.154 MEQ/ML Inhalant Solution 1 bottle, INHALATION, Bedtime, # 1 btl, 3 Refill(s) Active 10/31/2014 [facility] Ondansetron 4 MG Oral Tablet [Zofran] 4 mg=1 tab, PO, BID, PRN Nausea, X 5 day, # 10 tab, 0 Refill(s) Active 10/31/2014 [facility] benzonatate 100 MG Oral Capsule [Tessalon Perles] 100 mg=1 cap, PO, TID, PRN Cough/Congestion, X 7 day, # 21 cap, 0 Refill(s) Active 10/31/2014 [facility] Sodium Chloride 0.154 MEQ/ML Injectable Solution 250 mL, 250 ml/hr, Infuse Over: 1 hr, Route: IV, 250, Drug form: INJ, ONCE, Priority: STAT, Dosing Weight 68.002 kg, Start date: 10/30/14 19:59:00, Duration: 1 doses or times, Stop date: 10/30/14 19:59:00 Inactive 10/31/2014 [facility] Aspirin 325 mg, 1 tab, Route: PO, Drug form: TAB, ONCE, Dosing Weight 68.002, kg, Priority: STAT, Start date: 10/30/14 19:59:00, Stop date: 10/30/14 19:59:00 Inactive 10/31/2014 [facility] Ibuprofen 600 mg, Route: PO, ONCE, Dosing Weight 68.002, kg, Priority: STAT, Start date: 10/30/14 19:58:00, Stop date: 10/30/14 19:58:00 Inactive 10/31/2014 [facility] Ondansetron 4 mg, 2 mL, Route: IVP, Drug form: INJ, ONCE, Dosing Weight 68.002, kg, Priority: STAT, Start date: 10/30/14 19:58:00, Stop date: 10/30/14 19:58:00Notes: (Same as: Zofran) MEDICATION WASTE Product Size: 4 mg Product Wasted: ___ mg Inactive 10/31/2014 [facility] Morphine 4 mg, 1 mL, Route: IVP, Drug form: INJ, ONCE, Dosing Weight 68.002, kg, Priority: STAT, Start date: 10/30/14 19:58:00, Stop date: 10/30/14 19:58:00Notes: (Same as:MORPhine Sulfate) Inactive 10/31/2014 [facility] Furosemide 40 MG Oral Tablet [Lasix] 40 mg, 1 tab, Route: PO, Drug form: TAB, BID, Dosing Weight 75, kg, Start date: 10/12/14 17:00:00, Duration: 30 day, Stop date: 11/11/14 9:00:00Notes: (Same as: Lasix) May cause GI upset. Give with food or milk. Inactive 10/12/2014 [facility] potassium citrate 10 mEq oral extended release tablet 10 mEq=1 tab, PO, Daily, # 30 tab, 0 Refill(s) Active 10/12/2014 [facility] Furosemide 40 MG Oral Tablet [Lasix] 40 mg=1 tab, PO, BID, # 60 tab, 0 Refill(s) Active 10/12/2014 [facility] potassium chloride 20 mEq, 1 tab, Route: PO, Drug form: ERTAB, ONCE, Dosing Weight 75, kg, Start date: 10/11/14 7:22:00, Stop date: 10/11/14 7:22:00Notes: (Same as: K-Dur 20) "Do Not Crush" With food and full glass of water Inactive 10/11/2014 [facility] Tylenol 650 mg, 2 tab, Route: PO, Drug form: TAB, Q6H, Dosing Weight 75, kg, PRN Pain Score 1-5, Start date: 10/10/14 18:21:00, Duration: 30 day, Stop date: 11/09/14 18:20:00Notes: Do not exceed 4 gm/day. ( Same as: Tylenol) No Longer Active 10/10/2014 [facility] Lasix 40 mg, 4 mL, Route: IV, Drug form: INJ, BID, Dosing Weight 75, kg, Start date: 10/10/14 18:00:00, Duration: 30 day, Stop date: 11/09/14 17:00:00Notes: (Same as: Lasix) MEDICATION WASTE Product Size: 40 mg Product Wasted: ___ mg No Longer Active 10/10/2014 [facility] Lasix 20 mg, 2 mL, Route: IV, Drug form: INJ, ONCE, Dosing Weight 75, kg, Start date: 10/10/14 8:45:00, Stop date: 10/10/14 8:45:00Notes: (Same as: Lasix) Inactive 10/10/2014 [facility] Lasix 20 mg, 2 mL, Route: IVP, Drug form: INJ, BID Diuretic, Dosing Weight 75, kg, Start date: 10/10/14 6:00:00, Duration: 30 day, Stop date: 11/08/14 14:00:00Notes: (Same as: Lasix) Inactive 10/10/2014 [facility] Lasix 40 mg, 4 mL, Route: IV, Drug form: INJ, ONCE, Dosing Weight 75, kg, Priority: STAT, Start date: 10/09/14 11:57:00, Stop date: 10/09/14 11:57:00Notes: (Same as: Lasix) Inactive 10/09/2014 [facility] Lasix 40 mg, 4 mL, Route: IV, Drug form: INJ, ONCE, Dosing Weight 75, kg, Start date: 10/09/14 6:55:00, Stop date: 10/09/14 6:55:00Notes: (Same as: Lasix) MEDICATION WASTE Product Size: 40 mg Product Wasted: ___ mg Inactive 10/09/2014 [facility] Albuterol 0.833 MG/ML / Ipratropium [place] 0.167 MG/ML Inhalant Solution [DuoNeb] 3 ml, Route: INHALATION, Drug Form: SOLN, Dosing Weight 75, kg, PRN, PRN Respiratory Protocol, Start date: 10/09/14 3:22:00, Duration: 30 day, Stop date: 11/08/14 3:21:00Notes: (Same as: Duoneb) No Longer Active 10/09/2014 [facility] Zofran 4 mg, 2 mL, Route: IVP, Drug form: INJ, ONCE, Dosing Weight 75, kg, Start date: 10/09/14 1:37:00, Stop date: 10/09/14 1:37:00Notes: (Same as: Zofran) MEDICATION WASTE Product Size: 4 mg Product Wasted: ___ mg Inactive 10/09/2014 [facility] Robitussin-DM 10 mL, Route: PO, Drug Form: SYRP, Q6H, PRN Cough, Start date: 10/08/14 23:49:00, Duration: 30 day, Stop date: 11/07/14 23:48:00Notes: (dextromethorphan-guaifenesin 10-100mg/5ml 10 ml oral SOLN ud) ( Same as: Robitussin DM) No Longer Active 10/09/2014 [facility] Lipitor 80 mg, 1 tab, Route: PO, Drug form: TAB, Bedtime, Dosing Weight 70.455, kg, Start date: 10/08/14 21:00:00, Duration: 30 day, Stop date: 11/06/14 21:00:00Notes: Same as Lipitor No Longer Active 10/09/2014 [facility] Cough Relief 30 mg, Route: PO, Q8H, Dosing Weight 75, kg, PRN Cough/Congestion, Start date: 10/08/14 20:46:00, Duration: 30 day, Stop date: 11/07/14 20:45:00 Inactive 10/09/2014 [facility] Robitussin Cough Drop Head lozenge Route: PO, Q6H, PRN Cough, Start date: 10/08/14 20:45:00, Duration: 30 day, Stop date: 11/07/14 20:44:00 Inactive 10/09/2014 [facility] rivaroxaban 15 MG Oral Tablet [Xarelto] 15 mg=1 tab, PO, QPM Active 10/09/2014 [facility] levothyroxine 100 mcg (0.1 mg) oral tablet 100 microgram=1 tab, PO, QAM Active 10/09/2014 [facility] amLODIPine 5 mg oral tablet 5 mg=1 tab, PO, Daily No Longer Active 10/09/2014 [facility] dexlansoprazole 60 MG Enteric Coated Capsule [Dexilant] 60 mg=1 cap, PO, Daily Active 10/09/2014 [facility] propafenone 150 mg oral tablet 150 mg=1 tab, PO, Q8H Active 10/09/2014 [facility] Vitamin C 500 mg oral tablet 500 mg=1 tab, PO, Daily Active 10/09/2014 [facility] carvedilol 12.5 mg oral tablet 12.5 mg=1 tab, PO, BID No Longer Active 10/09/2014 [facility] atorvastatin 20 mg oral tablet 20 mg=1 tab, PO, Bedtime Active 10/09/2014 [facility] Aspirin 81 MG Enteric Coated Tablet 81 mg=1 tab, PO, Daily Active 10/09/2014 [facility] docusate sodium 100 mg oral capsule 100 mg=0, PO, BID, PRN Constipation No Longer Active 10/09/2014 [facility] Xarelto 15 mg, 1 tab, Route: PO, Drug form: TAB, QPM, Dosing Weight 70.455, kg, Start date: 10/08/14 17:00:00, Duration: 30 day, Stop date: 11/06/14 17:00:00Notes: (Same as: Xarelto) Administer with food No Longer Active 10/08/2014 [facility] Aspirin 81 mg, 1 tab, Route: PO, Drug form: ECTAB, Daily, Dosing Weight 70.455, kg, Start date: 10/08/14 9:00:00, Duration: 30 day, Stop date: 11/06/14 9:00:00Notes: Do not crush or chew. (Same As: Ecotrin) No Longer Active 10/08/2014 [facility] Thyroxine 100 microgram, 1 tab, Route: PO, Drug form: TAB, Q630AM, Dosing Weight 70.455, kg, Start date: 10/08/14 6:30:00, Duration: 30 day, Stop date: 11/06/14 6:30:00Notes: Take 1 hour before or 2 hours after meal; Enteral feeds may interefere with the absorption of this medication. (Same as:Levothroid, Synthroid) No Longer Active 10/08/2014 [facility] Propafenone 150 mg, 1 tab, Route: PO, Drug form: TAB, Q8H, Dosing Weight 70.455, kg, Start date: 10/08/14 0:00:00, Duration: 30 day, Stop date: 11/06/14 16:00:00Notes: (Same as: Rythmol) No Longer Active 10/08/2014 [facility] Docusate Sodium 100 MG Oral Capsule [Colace] 100 mg, 1 cap, Route: PO, Drug form: CAP, BID, Dosing Weight 70.455, kg, PRN Constipation, Start date: 10/07/14 22:58:00, Duration: 30 day, Stop date: 11/06/14 22:57:00Notes: (Same as: Colace) (Do Not Crush) No Longer Active 10/08/2014 [facility] normal saline 0.9% IV 1,000 mL 1,000 mL, Rate: 75 ml/hr, Infuse over: 13.3 hr, Route: IV, Dosing Weight 70.455 kg, Total Volume: 1,000, Start date: 10/07/14 21:32:00, Duration: 30 day, Stop date: 11/06/14 21:31:00 No Longer Active 10/08/2014 [facility] iodixanol 85 mL, Route: IVP, Drug Form: SOLN, Dosing Weight 70.455, kg, ONCALL, STAT, Start date: 10/07/14 21:17:00, Duration: 1 doses or times, Dose=2.2ml/kg, Max [id number] -- "To be infused by Radiology Staff ONLY"Special Instructions: Dose=2.2ml/kg, Max [id number] -- "To be infused by Radiology Staff ONLY" Inactive 10/08/2014 [facility] Saline Flush 0.9% 10 mL, Route: MISC, Drug Form: INJ, Dosing Weight 70.455, kg, PRN, PRN Line Flush, Start date: 10/07/14 18:19:00, Duration: 30 day, Stop date: 11/06/14 18:18:00Notes: (Same as: BD Posiflush) No Longer Active 10/07/2014 [facility] Allergies, Adverse Reactions, Alerts Substance Category Reaction Severity Reaction type Status Date Reported Comments Source NKFA Assertion Drug allergy Active [facility] Immunizations Immunization Date Given Site Status Last Updated Comments Source pneumococcal 23-valent vaccine<sup>1</sup> 12/03/2014 Not Given [facility] pneumococcal 23-valent vaccine 12/03/2014 Not Given [facility] Results Order Name Results Value Reference Range Date Interpretation Comments Source CHEM PANEL Magnesium Lvl 2.1 1.8 - 2.4 10/25/2015 [facility] CHEM PANEL Phosphorus 3.9 2.5 - 4.5 10/25/2015 [facility] ELECTROLYTES AGAP 14.5 10.0 - 20.0 10/25/2015 [facility] ELECTROLYTES B/C Ratio 13 6 - 25 10/25/2015 [facility] ELECTROLYTES Globulin 3.6 2.0 - 4.0 10/25/2015 [facility] ELECTROLYTES A/G Ratio 0.9 0.7 - 1.6 10/25/2015 [facility] ELECTROLYTES Bili Total 0.5 0.2 - 1.3 10/25/2015 [facility] ELECTROLYTES eGFR 42 10/25/2015 Result [...] should be multiplied by the estimated BMI. [facility] ELECTROLYTES Glucose Lvl 98 70 - 99 10/25/2015 [facility] ELECTROLYTES Creatinine Lvl 1.23 0.50 - 1.40 10/25/2015 [facility] ELECTROLYTES BUN 16 7 - 22 10/25/2015 [facility] ELECTROLYTES Potassium Lvl 3.5 3.5 - 5.1 10/25/2015 [facility] ELECTROLYTES Sodium Lvl 136 135 - 145 10/25/2015 [facility] ELECTROLYTES Chloride Lvl 101 95 - 109 10/25/2015 [facility] ELECTROLYTES Calcium Lvl 8.5 8.5 - 10.5 10/25/2015 [facility] ELECTROLYTES CO2 24 24 - 32 10/25/2015 [facility] ELECTROLYTES Total Protein 6.9 6.4 - 8.4 10/25/2015 [facility] ELECTROLYTES Albumin Lvl 3.3 3.5 - 5.0 10/25/2015 [facility] ELECTROLYTES ALT 19 0 - 65 10/25/2015 [facility] ELECTROLYTES Alk Phos 211 39 - 136 10/25/2015 [facility] ELECTROLYTES AST 20 0 - 37 10/25/2015 [facility] HEMATOLOGY MCHC 33.9 32.0 - 36.0 10/25/2015 [facility] HEMATOLOGY RDW 12.3 11.5 - 14.5 10/25/2015 [facility] HEMATOLOGY Platelet 139 133 - 450 10/25/2015 [facility] HEMATOLOGY MPV 10.4 7.4 - 10.4 10/25/2015 [facility] HEMATOLOGY MCV 96.1 80.0 - 98.0 10/25/2015 [facility] HEMATOLOGY Hct 34.3 36.0 - 48.0 10/25/2015 [facility] HEMATOLOGY MCH 32.6 27.0 - 31.0 10/25/2015 [facility] HEMATOLOGY WBC 4.6 3.7 - 10.4 10/25/2015 [facility] HEMATOLOGY Hgb 11.6 12.0 - 16.0 10/25/2015 [facility] HEMATOLOGY RBC 3.57 4.20 - 5.40 10/25/2015 [facility] HEMATOLOGY PTT 40.5 22.9 - 35.8 10/25/2015 [facility] HEMATOLOGY PT 25.3 12.0 - 14.7 10/25/2015 [facility] HEMATOLOGY INR 2.26 0.85 - 1.17 10/25/2015 [facility] HEMATOLOGY Segs 48.8 45.0 - 75.0 10/25/2015 [facility] HEMATOLOGY Lymphocytes 31.7 20.0 - 40.0 10/25/2015 [facility] HEMATOLOGY Basophils 0.4 0.0 - 1.0 10/25/2015 [facility] HEMATOLOGY Segs-Bands # 2.2 1.5 - 8.1 10/25/2015 [facility] HEMATOLOGY Monocytes 15.7 2.0 - 12.0 10/25/2015 [facility] HEMATOLOGY Eosinophils 3.4 0.0 - 4.0 10/25/2015 [facility] HEMATOLOGY Eosinophils # 0.2 0.0 - 0.5 10/25/2015 [facility] HEMATOLOGY Lymphocytes # 1.5 1.0 - 5.5 10/25/2015 [facility] HEMATOLOGY Monocytes # 0.7 0.0 - 0.8 10/25/2015 [facility] CARDIAC ENZYMES Troponin-I <0.02 0.00 - 0.40 10/24/2015 [facility] CARDIAC ENZYMES BNP 367 <=100 pg/mL 10/24/2015 [facility] CHEM PANEL A/G Ratio 0.9 0.7 - 1.6 10/24/2015 [facility] CHEM PANEL eGFR 45 10/24/2015 [...] should be multiplied by the estimated BMI. [facility] CHEM PANEL Sodium Lvl 138 135 - 145 10/24/2015 [facility] CHEM PANEL Chloride Lvl 100 95 - 109 10/24/2015 [facility] CHEM PANEL Potassium Lvl 3.5 3.5 - 5.1 10/24/2015 [facility] CHEM PANEL Alk Phos 230 39 - 136 10/24/2015 [facility] CHEM PANEL Globulin 4.1 2.0 - 4.0 10/24/2015 [facility] CHEM PANEL B/C Ratio 15 6 - 25 10/24/2015 [facility] CHEM PANEL AGAP 16.5 10.0 - 20.0 10/24/2015 [facility] CHEM PANEL Bili Total 0.6 0.2 - 1.3 10/24/2015 [facility] CHEM PANEL Total Protein 7.6 6.4 - 8.4 10/24/2015 [facility] CHEM PANEL Calcium Lvl 8.6 8.5 - 10.5 10/24/2015 [facility] CHEM PANEL CO2 25 24 - 32 10/24/2015 [facility] CHEM PANEL AST 22 0 - 37 10/24/2015 [facility] CHEM PANEL ALT 24 0 - 65 10/24/2015 [facility] CHEM PANEL Albumin Lvl 3.5 3.5 - 5.0 10/24/2015 [facility] CHEM PANEL Creatinine Lvl 1.17 0.50 - 1.40 10/24/2015 [facility] CHEM PANEL BUN 17 7 - 22 10/24/2015 [facility] CHEM PANEL Glucose Lvl 105 70 - 99 10/24/2015 [facility] CHEM PANEL Ammonia 40.0 <=45.0 uMol/L 10/24/2015 [facility] HEMATOLOGY PT 15.7 12.0 - 14.7 10/24/2015 [facility] HEMATOLOGY INR 1.22 0.85 - 1.17 10/24/2015 [facility] URINE AND STOOL UA Leuk Est Negative (10/24/15 4:48 PM) Negative 10/24/2015 [facility] URINE AND STOOL UA WBC 1 0 - 5 10/24/2015 [facility] URINE AND STOOL UA Nitrite Negative (10/24/15 4:48 PM) Negative 10/24/2015 [facility] URINE AND STOOL UA Urobilinogen <=1.0 mg/dL 0.1 - 1.0 10/24/2015 [facility] URINE AND STOOL UA Sq Epi None Seen 10/24/2015 [facility] URINE AND STOOL UA Color Yellow *NA* (10/24/15 4:48 PM) Yellow 10/24/2015 [facility] URINE AND STOOL UA Blood Negative (10/24/15 4:48 PM) Negative 10/24/2015 [facility] URINE AND STOOL UA Bili Negative *NA* (10/24/15 4:48 PM) Negative 10/24/2015 [facility] URINE AND STOOL UA Spec Grav 1.006 <=1.030 10/24/2015 [facility] URINE AND STOOL UA Turbidity Clear (10/24/15 4:48 PM) Clear 10/24/2015 [facility] URINE AND STOOL UA pH 7.0 5.0 - 8.0 10/24/2015 [facility] URINE AND STOOL UA Glucose Negative mg/dL Negative mg/dL 10/24/2015 [facility] URINE AND STOOL UA Protein Negative mg/dL Negative mg/dL 10/24/2015 [facility] URINE AND STOOL UA Ketones Negative mg/dL Negative mg/dL 10/24/2015 [facility] CARDIAC ENZYMES Troponin-I <0.02 0.00 - 0.40 10/24/2015 [facility] CHEM PANEL Lactic Acid WB 1.7 0.5 - 2.2 10/24/2015 [facility] CHEM PANEL Phosphorus 3.5 2.5 - 4.5 10/24/2015 [facility] CHEM PANEL Magnesium Lvl 2.1 1.8 - 2.4 10/24/2015 [facility] CHEM PANEL eGFR 44 10/24/2015 [...] should be multiplied by the estimated BMI. [facility] CHEM PANEL Calcium Lvl 9.5 8.5 - 10.5 10/24/2015 [facility] CHEM PANEL CO2 30 24 - 32 10/24/2015 [facility] CHEM PANEL Chloride Lvl 98 95 - 109 10/24/2015 [facility] CHEM PANEL Potassium Lvl 4.0 3.5 - 5.1 10/24/2015 [facility] CHEM PANEL Creatinine Lvl 1.19 0.50 - 1.40 10/24/2015 [facility] CHEM PANEL BUN 18 7 - 22 10/24/2015 [facility] CHEM PANEL Glucose Lvl 133 70 - 99 10/24/2015 [facility] CHEM PANEL Sodium Lvl 136 135 - 145 10/24/2015 [facility] CHEM PANEL AGAP 12.0 10.0 - 20.0 10/24/2015 [facility] DRUG SCREEN UDS Note See Note *NA* (10/24/15 5:56 AM) 10/24/2015 [facility] DRUG SCREEN U Phencyc Scr Negative *NA* (10/24/15 5:56 AM) Negative 10/24/2015 [facility] DRUG SCREEN U Opiate Scr Negative *NA* (10/24/15 5:56 AM) Negative 10/24/2015 [facility] DRUG SCREEN U Cocaine Scr Negative *NA* (10/24/15 5:56 AM) Negative 10/24/2015 [facility] DRUG SCREEN U Benzodia Scr Negative *NA* (10/24/15 5:56 AM) Negative 10/24/2015 [facility] DRUG SCREEN U Cannab Scr Negative *NA* (10/24/15 5:56 AM) Negative 10/24/2015 [facility] DRUG SCREEN U Amph Scr Negative *NA* (10/24/15 5:56 AM) Negative 10/24/2015 [facility] DRUG SCREEN U Divya Scr Negative *NA* (10/24/15 5:56 AM) Negative 10/24/2015 [facility] HEMATOLOGY Lymphocytes # 1.4 1.0 - 5.5 10/24/2015 [facility] HEMATOLOGY Segs-Bands # 3.7 1.5 - 8.1 10/24/2015 [facility] HEMATOLOGY Monocytes # 0.8 0.0 - 0.8 10/24/2015 [facility] HEMATOLOGY Eosinophils # 0.2 0.0 - 0.5 10/24/2015 [facility] HEMATOLOGY Segs 60.3 45.0 - 75.0 10/24/2015 [facility] HEMATOLOGY Lymphocytes 23.7 20.0 - 40.0 10/24/2015 [facility] HEMATOLOGY Monocytes 12.8 2.0 - 12.0 10/24/2015 [facility] HEMATOLOGY Basophils 0.3 0.0 - 1.0 10/24/2015 [facility] HEMATOLOGY Eosinophils 2.9 0.0 - 4.0 10/24/2015 [facility] HEMATOLOGY Hgb 12.3 12.0 - 16.0 10/24/2015 [facility] HEMATOLOGY MCV 96.4 80.0 - 98.0 10/24/2015 [facility] HEMATOLOGY Hct 37.2 36.0 - 48.0 10/24/2015 [facility] HEMATOLOGY MCH 31.9 27.0 - 31.0 10/24/2015 [facility] HEMATOLOGY Platelet 170 133 - 450 10/24/2015 [facility] HEMATOLOGY RDW 12.5 11.5 - 14.5 10/24/2015 [facility] HEMATOLOGY MPV 10.3 7.4 - 10.4 10/24/2015 [facility] HEMATOLOGY MCHC 33.1 32.0 - 36.0 10/24/2015 [facility] HEMATOLOGY WBC 6.1 3.7 - 10.4 10/24/2015 [facility] HEMATOLOGY RBC 3.86 4.20 - 5.40 10/24/2015 [facility] TOXICOLOGY Etoh (%) <0.003 % 10/24/2015 [facility] TOXICOLOGY Ethanol Lvl <3.0 mg/dL 10/24/2015 [facility] URINE AND STOOL UA Sq Epi Rare /LPF Few /LPF 10/24/2015 [facility] URINE AND STOOL UA Mucus Rare /LPF None Seen /LPF 10/24/2015 [facility] URINE AND STOOL UA WBC None Seen (10/24/15 5:56 AM) None Seen 10/24/2015 [facility] URINE AND STOOL UA Bacteria Occasional /HPF None Seen /HPF 10/24/2015 [facility] URINE AND STOOL UA RBC None Seen (10/24/15 5:56 AM) 0 - 2 10/24/2015 [facility] URINE AND STOOL UA Glucose Negative mg/dL Negative mg/dL 10/24/2015 [facility] URINE AND STOOL UA Bili Negative *NA* (10/24/15 5:56 AM) Negative 10/24/2015 [facility] URINE AND STOOL UA Blood Negative (10/24/15 5:56 AM) Negative 10/24/2015 [facility] URINE AND STOOL UA Urobilinogen 0.2 0.1 - 1.0 10/24/2015 [facility] URINE AND STOOL UA Ketones Negative mg/dL Negative mg/dL 10/24/2015 [facility] URINE AND STOOL UA pH 7.0 5.0 - 8.0 10/24/2015 [facility] URINE AND STOOL UA Protein Negative mg/dL Negative mg/dL 10/24/2015 [facility] URINE AND STOOL UA Nitrite Negative (10/24/15 5:56 AM) Negative 10/24/2015 [facility] URINE AND STOOL UA Leuk Est Negative (10/24/15 5:56 AM) Negative 10/24/2015 [facility] URINE AND STOOL UA Spec Grav 1.010 <=1.030 10/24/2015 [facility] URINE AND STOOL UA Turbidity Clear (10/24/15 5:56 AM) Clear 10/24/2015 [facility] URINE AND STOOL UA Color Yellow *NA* (10/24/15 5:56 AM) Yellow 10/24/2015 [facility] CHEM PANEL Albumin Lvl 3.8 3.5 - 5.0 04/15/2015 [facility] CHEM PANEL ALT 16 0 - 65 04/15/2015 [facility] CHEM PANEL AST 28 0 - 37 04/15/2015 [facility] CHEM PANEL Total Protein 7.9 6.4 - 8.4 04/15/2015 [facility] CHEM PANEL Bili Total 0.5 0.2 - 1.3 04/15/2015 [facility] CHEM PANEL Bili Direct 0.2 0.0 - 0.3 04/15/2015 [facility] CHEM PANEL Alk Phos 247 39 - 136 04/15/2015 [facility] CHEM PANEL Bili Indirect 0.3 0.0 - 1.0 04/15/2015 [facility] CHEM PANEL Globulin 4.1 2.0 - 4.0 04/15/2015 [facility] CHEM PANEL A/G Ratio 0.9 0.7 - 1.6 04/15/2015 [facility] CHEM PANEL Lipase Lvl 229 73 - 393 04/15/2015 [facility] ELECTROLYTES AGAP 12.9 10.0 - 20.0 04/15/2015 [facility] ELECTROLYTES CO2 24 24 - 32 04/15/2015 [facility] ELECTROLYTES Calcium Lvl 9.2 8.5 - 10.5 04/15/2015 [facility] ELECTROLYTES Chloride Lvl 101 95 - 109 04/15/2015 [facility] ELECTROLYTES eGFR 36 04/15/2015 Result [...] should be multiplied by the estimated BMI. [facility] ELECTROLYTES Sodium Lvl 134 135 - 145 04/15/2015 [facility] ELECTROLYTES Potassium Lvl 3.9 3.5 - 5.1 04/15/2015 [facility] ELECTROLYTES Creatinine Lvl 1.4 0.5 - 1.4 04/15/2015 [facility] ELECTROLYTES BUN 23 7 - 22 04/15/2015 [facility] ELECTROLYTES Glucose Lvl 111 70 - 99 04/15/2015 [facility] HEMATOLOGY MCV 89.3 80.0 - 98.0 04/15/2015 [facility] HEMATOLOGY RDW 17.5 11.5 - 14.5 04/15/2015 [facility] HEMATOLOGY Platelet 96 133 - 450 04/15/2015 [facility] HEMATOLOGY MCH 28.6 27.0 - 31.0 04/15/2015 [facility] HEMATOLOGY Hct 33.2 36.0 - 48.0 04/15/2015 [facility] HEMATOLOGY MPV 10.6 7.4 - 10.4 04/15/2015 [facility] HEMATOLOGY MCHC 32.1 32.0 - 36.0 04/15/2015 [facility] HEMATOLOGY RBC 3.72 4.20 - 5.40 04/15/2015 [facility] HEMATOLOGY WBC 6.8 3.7 - 10.4 04/15/2015 [facility] HEMATOLOGY Hgb 10.6 12.0 - 16.0 04/15/2015 [facility] HEMATOLOGY Basophils 0.4 0.0 - 1.0 04/15/2015 [facility] HEMATOLOGY Monocytes # 0.9 0.0 - 0.8 04/15/2015 [facility] HEMATOLOGY Eosinophils # 0.2 0.0 - 0.5 04/15/2015 [facility] HEMATOLOGY Segs 62.5 45.0 - 75.0 04/15/2015 [facility] HEMATOLOGY Segs-Bands # 4.2 1.5 - 8.1 04/15/2015 [facility] HEMATOLOGY Lymphocytes # 1.5 1.0 - 5.5 04/15/2015 [facility] HEMATOLOGY Lymphocytes 22.1 20.0 - 40.0 04/15/2015 [facility] HEMATOLOGY Monocytes 12.7 2.0 - 12.0 04/15/2015 [facility] HEMATOLOGY Eosinophils 2.3 0.0 - 4.0 04/15/2015 [facility] URINE AND STOOL UA Turbidity Slight Cloudy (04/14/15 10:07 PM) Clear 04/15/2015 [facility] URINE AND STOOL UA Color Yellow *NA* (04/14/15 10:07 PM) Yellow 04/15/2015 [facility] URINE AND STOOL UA Leuk Est Negative (04/14/15 10:07 PM) Negative 04/15/2015 [facility] URINE AND STOOL UA Nitrite Negative (04/14/15 10:07 PM) Negative 04/15/2015 [facility] URINE AND STOOL UA Urobilinogen 1.0 0.1 - 1.0 04/15/2015 [facility] URINE AND STOOL UA Blood Negative (04/14/15 10:07 PM) Negative 04/15/2015 [facility] URINE AND STOOL UA Bili Negative *NA* (04/14/15 10:07 PM) Negative 04/15/2015 [facility] URINE AND STOOL UA Glucose Negative (04/14/15 10:07 PM) Negative 04/15/2015 [facility] URINE AND STOOL UA Ketones Negative *NA* (04/14/15 10:07 PM) Negative 04/15/2015 [facility] URINE AND STOOL UA Spec Grav 1.011 <=1.030 04/15/2015 [facility] URINE AND STOOL UA Protein Negative (04/14/15 10:07 PM) Negative 04/15/2015 [facility] URINE AND STOOL UA pH 7.0 5.0 - 8.0 04/15/2015 [facility] URINE AND STOOL UA Bacteria Few /HPF None Seen /HPF 04/15/2015 [facility] URINE AND STOOL UA Sq Epi Few /LPF Few /LPF 04/15/2015 [facility] URINE AND STOOL UA RBC 0-2 /HPF 0 - 2 04/15/2015 [facility] URINE AND STOOL UA WBC 0-2 /HPF None Seen /HPF 04/15/2015 [facility] CARDIAC ENZYMES Troponin-I <0.02 0.00 - 0.40 02/02/2015 [facility] CHEM PANEL eGFR 36 02/02/2015 [...] should be multiplied by the estimated BMI. [facility] CHEM PANEL CO2 26 24 - 32 02/02/2015 [facility] CHEM PANEL Calcium Lvl 9.1 8.5 - 10.5 02/02/2015 [facility] CHEM PANEL BUN 23 7 - 22 02/02/2015 [facility] CHEM PANEL Glucose Lvl 97 70 - 99 02/02/2015 [facility] CHEM PANEL Potassium Lvl 4.2 3.5 - 5.1 02/02/2015 Result Comment: Specimen Slightly Hemolyzed. [facility] CHEM PANEL Chloride Lvl 100 95 - 109 02/02/2015 [facility] CHEM PANEL Sodium Lvl 138 135 - 145 02/02/2015 [facility] CHEM PANEL Creatinine Lvl 1.4 0.5 - 1.4 02/02/2015 [facility] CHEM PANEL AGAP 16.2 10.0 - 20.0 02/02/2015 [facility] HEMATOLOGY Eosinophils # 0.1 0.0 - 0.5 02/02/2015 [facility] HEMATOLOGY Lymphocytes # 1.8 1.0 - 5.5 02/02/2015 [facility] HEMATOLOGY Monocytes # 0.8 0.0 - 0.8 02/02/2015 [facility] HEMATOLOGY Basophils 0.5 0.0 - 1.0 02/02/2015 [facility] HEMATOLOGY Segs-Bands # 4.8 1.5 - 8.1 02/02/2015 [facility] HEMATOLOGY Segs 64.1 45.0 - 75.0 02/02/2015 [facility] HEMATOLOGY Lymphocytes 23.8 20.0 - 40.0 02/02/2015 [facility] HEMATOLOGY Monocytes 10.5 2.0 - 12.0 02/02/2015 [facility] HEMATOLOGY Eosinophils 1.1 0.0 - 4.0 02/02/2015 [facility] HEMATOLOGY MPV 10.9 7.4 - 10.4 02/02/2015 [facility] HEMATOLOGY MCHC 32.3 32.0 - 36.0 02/02/2015 [facility] HEMATOLOGY RDW 16.1 11.5 - 14.5 02/02/2015 [facility] HEMATOLOGY Platelet 138 133 - 450 02/02/2015 [facility] HEMATOLOGY Hct 32.4 36.0 - 48.0 02/02/2015 [facility] HEMATOLOGY MCV 86.7 80.0 - 98.0 02/02/2015 [facility] HEMATOLOGY MCH 28.0 27.0 - 31.0 02/02/2015 [facility] HEMATOLOGY WBC 7.5 3.7 - 10.4 02/02/2015 [facility] HEMATOLOGY Hgb 10.5 12.0 - 16.0 02/02/2015 [facility] HEMATOLOGY RBC 3.74 4.20 - 5.40 02/02/2015 [facility] CARDIAC ENZYMES Total CK 77 12 - 191 10/31/2014 [facility] CARDIAC ENZYMES Troponin-I <0.02 0.00 - 0.40 10/31/2014 [facility] CHEM PANEL Phosphorus 3.0 2.5 - 4.5 10/31/2014 [facility] CHEM PANEL Magnesium Lvl 2.1 1.8 - 2.4 10/31/2014 [facility] CHEM PANEL Bili Total 1.0 0.2 - 1.3 10/31/2014 [facility] CHEM PANEL ALT 14 0 - 65 10/31/2014 [facility] CHEM PANEL Albumin Lvl 4.0 3.5 - 5.0 10/31/2014 [facility] CHEM PANEL Total Protein 8.9 6.4 - 8.4 10/31/2014 [facility] CHEM PANEL AST 33 0 - 37 10/31/2014 [facility] CHEM PANEL Alk Phos 231 39 - 136 10/31/2014 [facility] CHEM PANEL eGFR 31 10/31/2014 [...] should be multiplied by the estimated BMI. [facility] CHEM PANEL CO2 27 24 - 32 10/31/2014 [facility] CHEM PANEL Potassium Lvl 3.7 3.5 - 5.1 10/31/2014 [facility] CHEM PANEL Chloride Lvl 94 95 - 109 10/31/2014 [facility] CHEM PANEL Creatinine Lvl 1.6 0.5 - 1.4 10/31/2014 [facility] CHEM PANEL Sodium Lvl 134 135 - 145 10/31/2014 [facility] CHEM PANEL Calcium Lvl 9.1 8.5 - 10.5 10/31/2014 [facility] CHEM PANEL BUN 18 7 - 22 10/31/2014 [facility] CHEM PANEL Glucose Lvl 123 70 - 99 10/31/2014 <sup>2</sup>Interpretive Data: Adult reference range values reflect the clinical guidelines
of the [place] [employer]. [facility] CHEM PANEL A/G Ratio 0.8 0.7 - 1.6 10/31/2014 [facility] CHEM PANEL Globulin 4.9 2.0 - 4.0 10/31/2014 [facility] CHEM PANEL B/C Ratio 11 6 - 25 10/31/2014 [facility] CHEM PANEL AGAP 16.7 10.0 - 20.0 10/31/2014 [facility] HEMATOLOGY INR 2.28 0.85 - 1.17 10/31/2014 <sup>3</sup>Interpretive Data: RECOMMENDED RANGES FOR PROTIME INR:
2.0-3.0 for most medical and surgical thromboembolic states.
2.5-3.5 for artificial heart valves and recurrent embolism.

INR SHOULD BE USED ONLY FOR PATIENTS ON STABLE ANTICOAGULANT THERAPY. [facility] HEMATOLOGY PT 25.8 12.0 - 14.7 10/31/2014 [facility] HEMATOLOGY PTT 55.8 22.9 - 35.8 10/31/2014 <sup>4</sup>Interpretive Data: Heparin Therapeutic Range: 57 - 92 Seconds [facility] HEMATOLOGY MCH 31.3 27.0 - 31.0 10/31/2014 [facility] HEMATOLOGY MCV 92.9 80.0 - 98.0 10/31/2014 [facility] HEMATOLOGY MCHC 33.7 32.0 - 36.0 10/31/2014 [facility] HEMATOLOGY RDW 14.2 11.5 - 14.5 10/31/2014 [facility] HEMATOLOGY MPV 9.4 7.4 - 10.4 10/31/2014 [facility] HEMATOLOGY Platelet 87 133 - 450 10/31/2014 [facility] HEMATOLOGY RBC 3.89 4.20 - 5.40 10/31/2014 [facility] HEMATOLOGY Hgb 12.2 12.0 - 16.0 10/31/2014 [facility] HEMATOLOGY Hct 36.1 36.0 - 48.0 10/31/2014 [facility] HEMATOLOGY WBC 4.7 3.7 - 10.4 10/31/2014 [facility] HEMATOLOGY Monocytes # 0.6 0.0 - 0.8 10/31/2014 [facility] HEMATOLOGY Eosinophils # 0.1 0.0 - 0.5 10/31/2014 [facility] HEMATOLOGY Basophils 0.4 0.0 - 1.0 10/31/2014 [facility] HEMATOLOGY Lymphocytes # 1.2 1.0 - 5.5 10/31/2014 [facility] HEMATOLOGY Segs-Bands # 2.8 1.5 - 8.1 10/31/2014 [facility] HEMATOLOGY Basophils # 0.0 0.0 - 0.2 10/31/2014 [facility] HEMATOLOGY Lymphocytes 25.5 20.0 - 40.0 10/31/2014 [facility] HEMATOLOGY Segs 58.1 45.0 - 75.0 10/31/2014 [facility] HEMATOLOGY Eosinophils 2.4 0.0 - 4.0 10/31/2014 [facility] HEMATOLOGY Monocytes 13.6 2.0 - 12.0 10/31/2014 [facility] CHEM PANEL A/G Ratio 0.8 0.7 - 1.6 10/11/2014 [facility] CHEM PANEL Globulin 4.2 2.0 - 4.0 10/11/2014 [facility] CHEM PANEL B/C Ratio 7 6 - 25 10/11/2014 [facility] CHEM PANEL AGAP 12.4 10.0 - 20.0 10/11/2014 [facility] CHEM PANEL eGFR 36 10/11/2014 [...] should be multiplied by the estimated BMI. [facility] CHEM PANEL Calcium Lvl 8.9 8.5 - 10.5 10/11/2014 [facility] CHEM PANEL Total Protein 7.7 6.4 - 8.4 10/11/2014 [facility] CHEM PANEL Albumin Lvl 3.5 3.5 - 5.0 10/11/2014 [facility] CHEM PANEL Alk Phos 219 39 - 136 10/11/2014 [facility] CHEM PANEL AST 20 0 - 37 10/11/2014 [facility] CHEM PANEL ALT 13 0 - 65 10/11/2014 [facility] CHEM PANEL Bili Total 1.6 0.2 - 1.3 10/11/2014 [facility] CHEM PANEL Chloride Lvl 99 95 - 109 10/11/2014 [facility] CHEM PANEL CO2 28 24 - 32 10/11/2014 [facility] CHEM PANEL Creatinine Lvl 1.4 0.5 - 1.4 10/11/2014 [facility] CHEM PANEL BUN 10 7 - 22 10/11/2014 [facility] CHEM PANEL Glucose Lvl 94 70 - 99 10/11/2014 <sup>4</sup>Interpretive Data: Adult reference range values reflect the clinical guidelines
of the [place] [employer]. [facility] CHEM PANEL Potassium Lvl 3.4 3.5 - 5.1 10/11/2014 [facility] CHEM PANEL Sodium Lvl 136 135 - 145 10/11/2014 [facility] CHEM PANEL Procalcitonin Lvl 0.25 0.00 - 0.10 10/11/2014 [facility] HEMATOLOGY MPV 9.8 7.4 - 10.4 10/11/2014 [facility] HEMATOLOGY MCHC 33.0 32.0 - 36.0 10/11/2014 [facility] HEMATOLOGY Platelet 169 133 - 450 10/11/2014 [facility] HEMATOLOGY RDW 15.7 11.5 - 14.5 10/11/2014 [facility] HEMATOLOGY Hct 37.3 36.0 - 48.0 10/11/2014 [facility] HEMATOLOGY MCV 92.7 80.0 - 98.0 10/11/2014 [facility] HEMATOLOGY MCH 30.6 27.0 - 31.0 10/11/2014 [facility] HEMATOLOGY WBC 8.5 3.7 - 10.4 10/11/2014 [facility] HEMATOLOGY Hgb 12.3 12.0 - 16.0 10/11/2014 [facility] HEMATOLOGY RBC 4.02 4.20 - 5.40 10/11/2014 [facility] HEMATOLOGY Monocytes # 1.1 0.0 - 0.8 10/11/2014 [facility] HEMATOLOGY Lymphocytes # 1.4 1.0 - 5.5 10/11/2014 [facility] HEMATOLOGY Eosinophils 0.4 0.0 - 4.0 10/11/2014 [facility] HEMATOLOGY Monocytes 13.0 2.0 - 12.0 10/11/2014 [facility] HEMATOLOGY Basophils 0.1 0.0 - 1.0 10/11/2014 [facility] HEMATOLOGY Lymphocytes 16.0 20.0 - 40.0 10/11/2014 [facility] HEMATOLOGY Segs-Bands # 6.0 1.5 - 8.1 10/11/2014 [facility] HEMATOLOGY Segs 70.5 45.0 - 75.0 10/11/2014 [facility] URINE AND STOOL UA Urobilinogen <=1.0 mg/dL 0.1 - 1.0 10/11/2014 [facility] URINE AND STOOL UA Spec Grav 1.006 <=1.030 10/11/2014 [facility] URINE AND STOOL UA Nitrite Negative (10/10/14 10:21 PM) Negative 10/11/2014 [facility] URINE AND STOOL UA pH 5.5 5.0 - 8.0 10/11/2014 [facility] URINE AND STOOL UA Protein Negative mg/dL Negative mg/dL 10/11/2014 [facility] URINE AND STOOL UA Mucus Few /LPF None Seen /LPF 10/11/2014 [facility] URINE AND STOOL UA RBC 5 0 - 2 10/11/2014 [facility] URINE AND STOOL UA Sq Epi Occasional /LPF Few /LPF 10/11/2014 [facility] URINE AND STOOL UA WBC <1 0 - 5 10/11/2014 [facility] URINE AND STOOL UA Leuk Est Negative (10/10/14 10:21 PM) Negative 10/11/2014 [facility] URINE AND STOOL UA Color Yellow *NA* (10/10/14 10:21 PM) Yellow 10/11/2014 [facility] URINE AND STOOL UA Turbidity Clear (10/10/14 10:21 PM) Clear 10/11/2014 [facility] URINE AND STOOL UA Ketones Negative mg/dL Negative mg/dL 10/11/2014 [facility] URINE AND STOOL UA Blood Trace *ABN* (10/10/14 10:21 PM) Negative 10/11/2014 [facility] URINE AND STOOL UA Bili Negative *NA* (10/10/14 10:21 PM) Negative 10/11/2014 [facility] URINE AND STOOL UA Glucose Negative mg/dL Negative mg/dL 10/11/2014 [facility] HEMATOLOGY Eosinophils # 0.2 0.0 - 0.5 10/10/2014 [facility] HEMATOLOGY Segs-Bands # 5.8 1.5 - 8.1 10/10/2014 [facility] HEMATOLOGY Lymphocytes # 1.4 1.0 - 5.5 10/10/2014 [facility] HEMATOLOGY Monocytes 11.0 2.0 - 12.0 10/10/2014 [facility] HEMATOLOGY Eosinophils 1.9 0.0 - 4.0 10/10/2014 [facility] HEMATOLOGY Monocytes # 0.9 0.0 - 0.8 10/10/2014 [facility] HEMATOLOGY Basophils 0.2 0.0 - 1.0 10/10/2014 [facility] HEMATOLOGY Lymphocytes 17.0 20.0 - 40.0 10/10/2014 [facility] HEMATOLOGY Segs 69.9 45.0 - 75.0 10/10/2014 [facility] HEMATOLOGY Platelet 154 133 - 450 10/10/2014 [facility] HEMATOLOGY MPV 9.8 7.4 - 10.4 10/10/2014 [facility] HEMATOLOGY Hct 35.6 36.0 - 48.0 10/10/2014 [facility] HEMATOLOGY MCV 92.2 80.0 - 98.0 10/10/2014 [facility] HEMATOLOGY MCH 30.5 27.0 - 31.0 10/10/2014 [facility] HEMATOLOGY MCHC 33.1 32.0 - 36.0 10/10/2014 [facility] HEMATOLOGY RDW 15.7 11.5 - 14.5 10/10/2014 [facility] HEMATOLOGY Hgb 11.8 12.0 - 16.0 10/10/2014 [facility] HEMATOLOGY WBC 8.3 3.7 - 10.4 10/10/2014 [facility] HEMATOLOGY RBC 3.86 4.20 - 5.40 10/10/2014 [facility] CARDIAC ENZYMES CK MB 0.6 0.5 - 3.6 10/09/2014 [facility] CARDIAC ENZYMES CK MB Index 0.4 0.0 - 2.5 10/09/2014 [facility] CARDIAC ENZYMES Troponin-T <0.010 0.000 - 0.100 10/09/2014 [facility] CARDIAC ENZYMES Total CK 148 12 - 191 10/09/2014 [facility] CARDIAC ENZYMES Troponin-I <0.02 0.00 - 0.40 10/09/2014 [facility] CARDIAC ENZYMES Total CK 159 12 - 191 10/09/2014 [facility] CARDIAC ENZYMES Troponin-I <0.02 0.00 - 0.40 10/09/2014 [facility] CARDIAC ENZYMES Troponin-T <0.010 0.000 - 0.100 10/09/2014 [facility] CARDIAC ENZYMES CK MB Index 0.4 0.0 - 2.5 10/09/2014 [facility] CARDIAC ENZYMES CK MB 0.7 0.5 - 3.6 10/09/2014 [facility] CARDIAC ENZYMES BNP 337 <=100 pg/mL 10/09/2014 <sup>7</sup>Interpretive Data: Elevated results are in line with increasing severity of
congestive heart failure. Minor elevations between 100 and 300
may be seen with Myocardial Ischemia, Sodium retaining drugs,
and compensated/treated heart failure. [facility] CHEM PANEL eGFR 44 10/09/2014 [...] should be multiplied by the estimated BMI. [facility] CHEM PANEL Calcium Lvl 8.3 8.5 - 10.5 10/09/2014 [facility] CHEM PANEL CO2 25 24 - 32 10/09/2014 [facility] CHEM PANEL Creatinine Lvl 1.2 0.5 - 1.4 10/09/2014 [facility] CHEM PANEL Potassium Lvl 3.9 3.5 - 5.1 10/09/2014 [facility] CHEM PANEL Chloride Lvl 109 95 - 109 10/09/2014 [facility] CHEM PANEL BUN 9 7 - 22 10/09/2014 [facility] CHEM PANEL Sodium Lvl 142 135 - 145 10/09/2014 [facility] CHEM PANEL Glucose Lvl 97 70 - 99 10/09/2014 <sup>5</sup>Interpretive Data: Adult reference range values reflect the clinical guidelines
of the [place] [employer]. [facility] CHEM PANEL AGAP 11.9 10.0 - 20.0 10/09/2014 [facility] HEMATOLOGY Lymphocytes # 1.5 1.0 - 5.5 10/09/2014 [facility] HEMATOLOGY Segs 72.3 45.0 - 75.0 10/09/2014 [facility] HEMATOLOGY Lymphocytes 17.6 20.0 - 40.0 10/09/2014 [facility] HEMATOLOGY Eosinophils 0.4 0.0 - 4.0 10/09/2014 [facility] HEMATOLOGY Basophils 0.3 0.0 - 1.0 10/09/2014 [facility] HEMATOLOGY Segs-Bands # 5.9 1.5 - 8.1 10/09/2014 [facility] HEMATOLOGY Monocytes # 0.8 0.0 - 0.8 10/09/2014 [facility] HEMATOLOGY Monocytes 9.4 2.0 - 12.0 10/09/2014 [facility] HEMATOLOGY Platelet 132 133 - 450 10/09/2014 [facility] HEMATOLOGY MPV 10.1 7.4 - 10.4 10/09/2014 [facility] HEMATOLOGY RDW 16.2 11.5 - 14.5 10/09/2014 [facility] HEMATOLOGY MCHC 32.5 32.0 - 36.0 10/09/2014 [facility] HEMATOLOGY Hct 32.2 36.0 - 48.0 10/09/2014 [facility] HEMATOLOGY MCH 30.5 27.0 - 31.0 10/09/2014 [facility] HEMATOLOGY RBC 3.44 4.20 - 5.40 10/09/2014 [facility] HEMATOLOGY MCV 93.8 80.0 - 98.0 10/09/2014 [facility] HEMATOLOGY WBC 8.2 3.7 - 10.4 10/09/2014 [facility] HEMATOLOGY Hgb 10.5 12.0 - 16.0 10/09/2014 [facility] HEMATOLOGY PT 24.3 12.0 - 14.7 10/09/2014 [facility] HEMATOLOGY PTT 50.7 22.9 - 35.8 10/09/2014 <sup>10</sup>Interpretive Data: Heparin Therapeutic Range: 57 - 92 Seconds [facility] HEMATOLOGY INR 2.12 0.85 - 1.17 10/09/2014 <sup>8</sup>Interpretive Data: RECOMMENDED RANGES FOR PROTIME INR:
2.0-3.0 for most medical and surgical thromboembolic states.
2.5-3.5 for artificial heart valves and recurrent embolism.

INR SHOULD BE USED ONLY FOR PATIENTS ON STABLE ANTICOAGULANT THERAPY. [facility] THYROID PANEL TSH 2.440 0.360 - 3.740 10/09/2014 [facility] CHEM PANEL eGFR 44 10/08/2014 [...] should be multiplied by the estimated BMI. [facility] CHEM PANEL Sodium Lvl 142 135 - 145 10/08/2014 [facility] CHEM PANEL Potassium Lvl 3.8 3.5 - 5.1 10/08/2014 [facility] CHEM PANEL Calcium Lvl 9.0 8.5 - 10.5 10/08/2014 [facility] CHEM PANEL Total Protein 6.9 6.4 - 8.4 10/08/2014 [facility] CHEM PANEL Chloride Lvl 108 95 - 109 10/08/2014 [facility] CHEM PANEL CO2 20 24 - 32 10/08/2014 [facility] CHEM PANEL BUN 9 7 - 22 10/08/2014 [facility] CHEM PANEL Creatinine Lvl 1.2 0.5 - 1.4 10/08/2014 [facility] CHEM PANEL Glucose Lvl 98 70 - 99 10/08/2014 <sup>6</sup>Interpretive Data: Adult reference range values reflect the clinical guidelines
of the [place] [employer]. [facility] CHEM PANEL AGAP 17.8 10.0 - 20.0 10/08/2014 [facility] CHEM PANEL A/G Ratio 0.9 0.7 - 1.6 10/08/2014 [facility] CHEM PANEL Globulin 3.6 2.0 - 4.0 10/08/2014 [facility] CHEM PANEL B/C Ratio 8 6 - 25 10/08/2014 [facility] CHEM PANEL Albumin Lvl 3.3 3.5 - 5.0 10/08/2014 [facility] CHEM PANEL Alk Phos 202 39 - 136 10/08/2014 [facility] CHEM PANEL Bili Total 0.6 0.2 - 1.3 10/08/2014 [facility] CHEM PANEL ALT 19 0 - 65 10/08/2014 [facility] CHEM PANEL AST 20 0 - 37 10/08/2014 [facility] HEMATOLOGY Eosinophils # 0.1 0.0 - 0.5 10/08/2014 [facility] LIPIDS HDL 43 >=61 mg/dL 10/08/2014 [facility] LIPIDS Chol 141 <=199 mg/dL 10/08/2014 [facility] LIPIDS Trig 122 <=149 mg/dL 10/08/2014 [facility] LIPIDS CHD Risk 3.28 3.90 - 5.80 10/08/2014 [facility] LIPIDS VLDL 24 10/08/2014 [facility] LIPIDS LDL (Calculated) 74 <=99 mg/dL 10/08/2014 [facility] SPECIAL CHEMISTRY Hgb A1C 5.8 <=5.6 % 10/08/2014 [facility] URINE AND STOOL UA Bili Negative *NA* (10/08/14 2:29 AM) Negative 10/08/2014 [facility] URINE AND STOOL UA Ketones Negative mg/dL Negative mg/dL 10/08/2014 [facility] URINE AND STOOL UA Urobilinogen 2.0 0.1 - 1.0 10/08/2014 [facility] URINE AND STOOL UA Blood Moderate *ABN* (10/08/14 2:29 AM) Negative 10/08/2014 [facility] URINE AND STOOL UA Sq Epi Occasional /LPF Few /LPF 10/08/2014 [facility] URINE AND STOOL UA Leuk Est Negative (10/08/14 2:29 AM) Negative 10/08/2014 [facility] URINE AND STOOL UA RBC 92 0 - 2 10/08/2014 [facility] URINE AND STOOL UA WBC 1 0 - 5 10/08/2014 [facility] URINE AND STOOL UA Nitrite Negative (10/08/14 2:29 AM) Negative 10/08/2014 [facility] URINE AND STOOL UA Turbidity Clear (10/08/14 2:29 AM) Clear 10/08/2014 [facility] URINE AND STOOL UA pH 7.5 5.0 - 8.0 10/08/2014 [facility] URINE AND STOOL UA Spec Grav 1.038 <=1.030 10/08/2014 [facility] URINE AND STOOL UA Glucose Negative mg/dL Negative mg/dL 10/08/2014 [facility] URINE AND STOOL UA Protein Negative mg/dL Negative mg/dL 10/08/2014 [facility] URINE AND STOOL UA Color Yellow *NA* (10/08/14 2:29 AM) Yellow 10/08/2014 [facility] URINE AND STOOL UA Nitrite Negative (10/07/14 7:32 PM) Negative 10/08/2014 [facility] URINE AND STOOL UA Urobilinogen 0.2 0.1 - 1.0 10/08/2014 [facility] URINE AND STOOL UA Leuk Est Negative (10/07/14 7:32 PM) Negative 10/08/2014 [facility] URINE AND STOOL UA Blood Negative (10/07/14 7:32 PM) Negative 10/08/2014 [facility] URINE AND STOOL UA Ketones Negative mg/dL Negative mg/dL 10/08/2014 [facility] URINE AND STOOL UA Bili Negative *NA* (10/07/14 7:32 PM) Negative 10/08/2014 [facility] URINE AND STOOL UA Glucose Negative mg/dL Negative mg/dL 10/08/2014 [facility] URINE AND STOOL UA Protein Negative mg/dL Negative mg/dL 10/08/2014 [facility] URINE AND STOOL UA Spec Grav 1.010 <=1.030 10/08/2014 [facility] URINE AND STOOL UA Turbidity Clear (10/07/14 7:32 PM) Clear 10/08/2014 [facility] URINE AND STOOL UA Color Yellow *NA* (10/07/14 7:32 PM) Yellow 10/08/2014 [facility] URINE AND STOOL UA pH 7.0 5.0 - 8.0 10/08/2014 [facility] URINE AND STOOL UA Sq Epi Rare /LPF Few /LPF 10/08/2014 [facility] CARDIAC ENZYMES Troponin-I <0.02 0.00 - 0.40 10/07/2014 [facility] CARDIAC ENZYMES CK MB 0.9 0.5 - 3.6 10/07/2014 [facility] CARDIAC ENZYMES Total CK 213 12 - 191 10/07/2014 [facility] CARDIAC ENZYMES CK MB Index 0.4 0.0 - 2.5 10/07/2014 [facility] HEMATOLOGY PTT 42.7 22.9 - 35.8 10/07/2014 <sup>11</sup>Interpretive Data: Heparin Therapeutic Range: 57 - 92 Seconds [facility] HEMATOLOGY PT 16.7 12.0 - 14.7 10/07/2014 [facility] HEMATOLOGY INR 1.34 0.85 - 1.17 10/07/2014 <sup>9</sup>Interpretive Data: RECOMMENDED RANGES FOR PROTIME INR:
2.0-3.0 for most medical and surgical thromboembolic states.
2.5-3.5 for artificial heart valves and recurrent embolism.

INR SHOULD BE USED ONLY FOR PATIENTS ON STABLE ANTICOAGULANT THERAPY. [facility] HEMATOLOGY Plt Morph Normal (10/07/14 6:43 PM) 10/07/2014 [facility] HEMATOLOGY RBC Morph Normal (10/07/14 6:43 PM) 10/07/2014 [facility] HEMATOLOGY Atypical Lymphs 0.0 <=0.0 % 10/07/2014 [facility] HEMATOLOGY Bands 0.0 0.0 - 11.0 10/07/2014 [facility] HEMATOLOGY Eosinophils # 0.2 0.0 - 0.5 10/07/2014 [facility] Pathology Reports No Data Provided [...] stroke. Findings are stable. SL: [id number] 08/03/2018 [facility] 2 views DX Patient Name: IWNOA ISIDRO : 1935; Age: 83 years y/o Female MR: [id number] CHEST, 2 views HISTORY: Status post placement [...] 6. The regional skeleton is unremarkable. SL: [id number] 07/17/2018 [facility] 1 v for Placement DX EXAM: [...] interstitial prominence suggestive of mild congestion. SL: [id number] 07/16/2018 [facility] Ribs unilateral DX EXAM: Ribs unilateral DX, Chest 2 views DX HISTORY: - left lower rib series COMPARISON: None PA and lateral chest. Left rib series. Median sternotomy and pacing leads again noted. Stable appearance of the spine. No definite rib fracture. No effusion or pneumothorax. IMPRESSION: No acute abnormality. 04/17/2017 [facility] Chest 2 views DX EXAM: Ribs unilateral DX, Chest 2 views DX HISTORY: - left lower rib series COMPARISON: None PA and lateral chest. Left rib series. Median sternotomy and pacing leads again noted. Stable appearance of the spine. No definite rib fracture. No effusion or pneumothorax. IMPRESSION: No acute abnormality. 04/17/2017 [facility] Chest 1view DX EXAM: XR CHEST 1 [...] identified. IMPRESSION: No acute changes. Cardiomegaly. 10/24/2015 [facility] Chest 1view DX EXAM: XR [...] basilar subsegmental atelectasis. 3. Stable cardiomegaly. 10/24/2015 [facility] Brain wo contrast CT EXAM: [...] I agree with the preliminary read. 10/24/2015 [facility] Chest 1view DX EXAM: CHEST [...] pulmonary opacities representing atelectasis and/or consolidation. 04/14/2015 [facility] Chest 2 views DX EXAM: [...] effusion. No other acute cardiopulmonary abnormality. 02/02/2015 [facility] Chest 1view DX EXAM: XR [...] Decreased size of right pleural effusion 12/03/2014 [facility] Chest 2 views DX EXAM: [...] pleural effusions with underlying compressive atelectasis. 12/02/2014 [facility] Chest 2 views DX EXAM: [...] left pleural effusion versus pleural thickening. 10/30/2014 [facility] Chest 1view DX CHEST ONE [...] No significant change since October 09. 10/11/2014 [facility] Chest 1view DX Portable ap [...] retrocardiac opacity compared to October 07. 10/09/2014 [facility] Brain wo contrast CT EXAMINATION: [...] are noted. IMPRESSION: Stable negative exam. 10/08/2014 [facility] Brain/Neck CTA EXAM: CTA NECK [...] referencing the distal internal carotid artery. 10/07/2014 [facility] Brain Stroke wo contrast CT [...] operculum. No hemorrhage. No mass effect. 10/07/2014 [facility] Chest 1view DX EXAM: XR [...] which may represent postsurgical changes. IMPRESSION: 1. [id number] left-sided pleural effusion. 2. Left-sided retrocardiac opacity which may represent a left-sided pleural effusion, subsegmental atelectasis or consolidation. 3. Prominent cardiomediastinal silhouette which may be spurious widening secondary to technique. 10/07/2014 [facility] Consultation Notes No Data Provided for This Section Discharge Summaries No Data Provided for This Section History and Physicals No Data Provided for This Section Vital Signs Vital Sign Value Date Comments Source Systolic (mm Hg) 136 10/25/2015 [facility] Diastolic (mm Hg) 71 10/25/2015 [facility] Respitory Rate 18 10/25/2015 [facility] Heart Rate 63 10/25/2015 [facility] Temperature Oral (F) 96.9 F 10/25/2015 [facility] Systolic (mm Hg) 133 10/25/2015 [facility] Diastolic (mm Hg) 63 10/25/2015 [facility] Respitory Rate 16 10/25/2015 [facility] Heart Rate 70 10/25/2015 [facility] Temperature Oral (F) 97.2 F 10/25/2015 [facility] Respitory Rate 16 10/25/2015 [facility] Systolic (mm Hg) 131 10/25/2015 [facility] Diastolic (mm Hg) 60 10/25/2015 [facility] Temperature Oral (F) 97.5 F 10/25/2015 [facility] Heart Rate 61 10/25/2015 [facility] BMI Calculated 28.38 10/24/2015 [facility] Weight 65.909 10/24/2015 [facility] Height 152.4 cm 10/24/2015 [facility] BMI Calculated 26.51 10/24/2015 [facility] Weight 63.636 10/24/2015 [facility] Height 154.94 cm 10/24/2015 [facility] Temperature Oral (F) 97.5 F 04/15/2015 [facility] Center Respitory Rate 18 04/15/2015 [facility] Heart Rate 61 04/15/2015 [facility] Center Systolic (mm Hg) 131 04/15/2015 [facility] Center Diastolic (mm Hg) 66 04/15/2015 [facility] Center Respitory Rate 21 04/15/2015 [facility] Center Systolic (mm Hg) 136 04/15/2015 [facility] Center Diastolic (mm Hg) 63 04/15/2015 [facility] Center Heart Rate 64 04/15/2015 [facility] Heart Rate 62 04/15/2015 [facility] Center Systolic (mm Hg) 122 04/15/2015 [facility] Center Diastolic (mm Hg) 84 04/15/2015 [facility] Respitory Rate 19 04/15/2015 [facility] Weight 65.909 04/15/2015 [facility] Height 152.4 cm 04/15/2015 [facility] Temperature Oral (F) 97.7 F 04/15/2015 [facility] BMI Calculated 28.38 04/15/2015 [facility] Center Systolic (mm Hg) 141 02/02/2015 [facility] Center Diastolic (mm Hg) 67 02/02/2015 [facility] Center Respitory Rate 17 02/02/2015 [facility] Center Systolic (mm Hg) 141 02/02/2015 [facility] Center Diastolic (mm Hg) 65 02/02/2015 [facility] Center Respitory Rate 27 02/02/2015 [facility] Temperature Oral (F) 98.1 F 02/02/2015 [facility] Center Respitory Rate 23 02/02/2015 [facility] Center Systolic (mm Hg) 133 02/02/2015 [facility] Center Diastolic (mm Hg) 62 02/02/2015 [facility] Weight 65.909 02/02/2015 [facility] Heart Rate 64 02/02/2015 [facility] Temperature Oral (F) 98.0 F 02/02/2015 [facility] Systolic (mm Hg) 155 11/29/2014 [facility] Center Diastolic (mm Hg) 85 11/29/2014 [facility] Temperature Oral (F) 97.6 F 11/29/2014 [facility] Center Respitory Rate 20 11/29/2014 [facility] Heart Rate 82 11/29/2014 [facility] Temperature Oral (F) 97.8 F 11/29/2014 [facility] Center Systolic (mm Hg) 136 11/29/2014 [facility] Center Diastolic (mm Hg) 79 11/29/2014 [facility] Heart Rate 69 11/29/2014 [facility] Respitory Rate 20 11/29/2014 [facility] Height 152.4 cm 11/29/2014 [facility] Weight 90.909 11/29/2014 [facility] BMI Calculated 39.14 11/29/2014 [facility] Center Systolic (mm Hg) 140 10/31/2014 [facility] Center Diastolic (mm Hg) 64 10/31/2014 [facility] Center Respitory Rate 22 10/31/2014 [facility] Respitory Rate 23 10/31/2014 [facility] Systolic (mm Hg) 172 10/31/2014 [facility] Center Diastolic (mm Hg) 77 10/31/2014 [facility] Respitory Rate 19 10/31/2014 [facility] Weight 68.002 10/30/2014 [facility] Temperature Oral (F) 98.7 F 10/30/2014 [facility] Heart Rate 83 10/30/2014 [facility] Center Systolic (mm Hg) 136 10/30/2014 [facility] Center Diastolic (mm Hg) 77 10/30/2014 [facility] Heart Rate 83 10/12/2014 [facility] Temperature Oral (F) 97.8 F 10/12/2014 [facility] Respitory Rate 20 10/12/2014 [facility] Center Systolic (mm Hg) 147 10/12/2014 [facility] Center Diastolic (mm Hg) 80 10/12/2014 [facility] Center Systolic (mm Hg) 129 10/12/2014 [facility] Center Diastolic (mm Hg) 73 10/12/2014 [facility] Center Respitory Rate 20 10/12/2014 [facility] Temperature Oral (F) 98.1 F 10/12/2014 [facility] Heart Rate 72 10/12/2014 [facility] Temperature Oral (F) 97.7 F 10/12/2014 [facility] Center Systolic (mm Hg) 128 10/12/2014 [facility] Center Diastolic (mm Hg) 74 10/12/2014 [facility] Heart Rate 71 10/12/2014 [facility] Respitory Rate 20 10/12/2014 [facility] Weight 75 10/08/2014 [facility] BMI Calculated 30.24 10/08/2014 [facility] Height 157.48 cm 10/08/2014 [facility] Weight 70.455 10/07/2014 [facility] BMI Calculated 30.33 10/07/2014 [facility] Height 152.4 cm 10/07/2014 [facility] Encounters Location Location Details Encounter Type Encounter Number Reason For Visit Attending Provider ADM Date DC Date Status Source [facility] Inpatient [id number] Mc Coe 10/07/2014 10/12/2014 [facility] [id number] Laurel Worthy 10/30/2014 10/31/2014 [facility] [id number] Veronica Romoson 11/29/2014 11/30/2014 [facility] [id number] Griffin Juan 02/02/2015 02/02/2015 [facility] [id number] Margot Wallacegirish 04/15/2015 04/15/2015 [facility] OBS Observation Patient [id number] Earl SamanoEarle 10/24/2015 10/25/2015 [facility] [place] [facility] [id number] Layo De Los Santos 04/17/2017 04/18/2017 [facility] Out[facility] [id number] Erick Vázquez 08/03/2018 08/04/2018 [facility] Procedures Procedure Code Date Perfomer Comments Source CABG - Coronary artery bypass graft [id number] [facility] Cardiac pacemaker procedure [id number] [facility] CABG - Coronary artery bypass graft [id number] [facility] Cardiac catheterisation [id number] [facility] Cardiac pacemaker procedure [id number] [facility] CEIOL - Cataract extraction and insertion of intraocular lens [id number] [facility] section [id number] [facility] Colonoscopy [id number] [facility] Insertion of carotid artery stent [id number] [facility] CABG - Coronary artery bypass graft [id number] [facility] Cardiac pacemaker procedure [id number] [facility] Assessment and Plan Assessment and Plan Date [...] CDT amLODIPine, 5 mg=1 tab, PO, Daily, [place] Citizen, # 90 tab, 0 Refill(s) amLODIPine, 5 mg, 1 tab, Route: PO, Drug form: TAB, Daily, Dosing Weight 63.636, kg, Start date: 10/25/15 9:00:00 CDT, Duration: 30 day, Stop date: 11/23/15 9:00:00 CDT ascorbic acid, 500 mg=1 tab, PO, Daily, [place], # 90 tab, 0 Refill(s) ascorbic acid, 500 mg, 1 tab, Route: PO, Drug form: TAB, Daily, Dosing Weight 63.636, kg, Start date: 10/25/15 9:00:00 CDT, Duration: 30 day, Stop date: 11/23/15 9:00:00 CDT aspirin, 81 mg=1 tab, PO, Daily, [place], # 90 tab, 0 Refill(s) aspirin, 81 mg, 1 tab, Route: PO, Drug form: ECTAB, Daily, Dosing Weight 63.636, kg, Start date: 10/25/15 9:00:00 CDT, Duration: 30 day, Stop date: 11/23/15 9:00:00 CDT atorvastatin, 20 mg=1 tab, PO, Bedtime, [place], # 90 tab, 0 Refill(s) atorvastatin, 20 mg, 1 tab, Route: PO, Drug form: TAB, Bedtime, Dosing Weight 63.636, kg, Start date: 10/24/15 21:00:00 CDT, Duration: 30 day, Stop date: 11/22/15 21:00:00 CDT carvedilol, 12.5 mg=1 tab, PO, BID, [place], # 120 tab, 0 Refill(s) carvedilol, 12.5 mg, 1 tab, Route: PO, Drug form: TAB, BID, Dosing Weight 63.636, kg, Start date: 10/24/15 17:00:00 CDT, Duration: 30 day, Stop date: 11/23/15 9:00:00 CDT furosemide, 40 mg=1 tab, PO, BID, (water pill), [place], # 90 caplet, 0 Refill(s) furosemide, 40 [...] CDT levothyroxine, 100 microgram=1 tab, PO, QAM, [place], # 90 tab, 0 Refill(s) levothyroxine, 100 microgram, 1 tab, Route: PO, Drug form: TAB, Before Breakfast, Dosing Weight 63.636, kg, Start date: 10/25/15 7:30:00 CDT, Duration: 30 day, Stop date: 11/23/15 7:30:00 CDT omeprazole, 40 mg=1 cap, PO, Daily, [place], # 90 cap, 0 Refill(s) pantoprazole, 40 mg, 1 tab, Route: PO, Drug form: ECTAB, Before Dinner, Start date: 10/24/15 16:30:00 CDT, Duration: 30 day, Stop date: 11/22/15 16:30:00 CDT propafenone, 150 mg=1 tab, PO, Q8H, [place], # 90 tab, 0 Refill(s) propafenone, 150 mg, 1 tab, Route: PO, Drug form: TAB, Q8H, Dosing Weight 63.636, kg, Start date: 10/24/15 16:00:00 CDT, Duration: 30 day, Stop date: 11/23/15 8:00:00 CDT rivaroxaban, 15 mg=1 tab, PO, QPM, [place] Citizen, # 90 tab, 0 Refill(s) rivaroxaban, 15 [...] Prophylaxis ambulation Dis[place] [id number] 10/25/2015 [facility] Extracted from:Title: Clinical Document Author: [...] medication reconciliation F/U: PCP in one week [place] [facility] for sleep study I have [...] oxygen is arranged [place] hospitalists primary. pager [phone] Extracted from:Title: Clinical Document Author: Lyndon Magallon [...] enlargement/tenderness, no heat/cold intolerance PAST MEDICAL HISTORY: SC, CABG HTN A-fib with pacemaker PAST SURGICAL [...] 2-neither 0 1c. LOC Commands open/close eyes, warp placer/release non-paretic hand; 0-both 1-one 2-neither 0 2. [...] past medical history of HTN, history of SC and CABG, a-fib with pacemaker who presents [...] t-PA. Treat fevers and blood sugars aggressively. PT/OT/VISION REHABILITATION THERAPIST consults - rehab assessments have been ordered. DVT prophylaxis, SCDs Heparin or Lovenox not ordered as patient is on xarelto. Patient discussed with Dr. Jj, stroke fellow cotton header. THE FOLLOWING WERE PRESENT ON ADMISSION: Cardiovascular - A-fib, pacemaker, history of SC/CABG CORE MEASURES: 1) Antithrombotics have been ordered [...] assess - Transthoracic Echo - EEG - PT/OT/VISION REHABILITATION THERAPIST evaluations [id number] Arlette Rodriguez MD MPH Stroke Attending c [phone] p [phone] 10/12/2014 [facility] Plan of Care No Data Provided for This Section Social History Social History Date Source Social History TypeResponse Alcohol Never Smoking Status Never smoker; Exposure to Tobacco Smoke None; Cigarette Smoking Last 365 Days No; Reg Smoking Cessation Counseling No entered on: 07/16/18 07/16/2018 [facility] Social History TypeResponse Alcohol Never Smoking Status Never smoker; Type: Cigarettes; Previous treatment: None; Ready to change: No; Concerns about tobacco use in household: No; Exposure to Tobacco Smoke None; Cigarette Smoking Last 365 Days No; Reg Smoking Cessation Counseling No 10/24/2015 [facility] Social History TypeResponse Alcohol Never [...]
[2019-01-11] MEDS: FUROSEMIDE INJ 10 MG/ML 2 ML VIAL IV SCH (18:51)
[2019-01-11] MEDS ORDERED: FUROSEMIDE INJ 10 MG/ML 4 ML VIAL ONE (18:52)
[2019-01-11] MEDS: CEFTRIAXONE SOD 1 GM/NS 50 ML 50 ML IV SCH (18:55)
[2019-01-11] MEDS ORDERED: FUROSEMIDE INJ 10 MG/ML 4 ML VIAL IV ONE (19:00)
--- NOTE | 2019-01-11 21:57 | NUR ---
Received report from ER nurse.
--- NOTE | 2019-01-11 22:18 | NUR ---
Patient arrived to the floor via stretcher. Family at bedside.
[2019-01-11 23:00] VITALS: BP 97/55
[2019-01-11 23:26] VITALS: BP 97/55
[2019-01-12] VITALS (7 sets, daily range): BP systolic 84–124; BP diastolic 48–71
[2019-01-12 06:20] LABS: BASOPHILS % 0.2 % (0.0-1.0); EOSINOPHILS % 0.2 % (0.0-6.0); HEMATOCRIT 31.4 % (34.2-44.1); HEMOGLOBIN 10.3 g/dL (12.0-16.0); LYMPHOCYTES # (AUTO) 1.4 (1.0-3.2); LYMPHOCYTES % 7.7 % (18.0-39.1); MEAN CORPUSCULAR HEMOGLOBIN 31.2 pg (28-32); MEAN CORPUSCULAR HGB CONC 32.8 g/dL (31-35); MEAN CORPUSCULAR VOLUME 95.2 fL (81-99); MONOCYTES # (AUTO) 1.3 (0.2-0.8); MONOCYTES % 6.9 % (4.4-11.3); NEUTROPHILS # (AUTO) 15.2 (2.1-6.9); NEUTROPHILS % 84.4 % (38.7-80.0); PLATELET COUNT 96 x10e3/uL (140-360); RED CELL DISTRIBUTION WIDTH 13.2 % (11.7-14.4)
[2019-01-12 06:36] LABS: CALCIUM 8.4 mg/dL (8.4-10.2); CREATININE, SERUM 2.31 mg/dL (0.57-1.11)
--- NOTE | 2019-01-12 07:30 | NUR ---
REC'D PATIENT AAOX3, DAUGHTER AT BEDSIDE, REVIEWED HOME MEDICATIONS WITH HER. PATIENT ON 3 L/MIN OF O2 VIA NC. NO S/S OF DISTRESS. SIDE RAILS UP 2X, BED IN LOWEST POSITION, AND CALL MARIN WITHIN REACH.
[2019-01-12] MEDS: FUROSEMIDE INJ 10 MG/ML 2 ML VIAL IV SCH ×2 (08:55→17:28)
[2019-01-12] MEDS ORDERED: DIATRIZOATE MEGL/DIATRIZOA SOD 30 ML BTL PO ONE (12:18)
--- NOTE | 2019-01-12 12:46 | History and Physical ---
CHIEF COMPLAINT: Not feeling well. The patient has upper respiratory symptoms for the past three days. She has some nausea, vomiting, constipation. HISTORY OF PRESENT ILLNESS: The patient is an 83-year-old female with liver cirrhosis and systolic dysfunction congestive heart failure with previous admission back in May 2018. The patient has left atrial insufficiency on echocardiogram, also AV thickening as well. She was placed on diuretic at that time and then subsequently sent home. She came in now with sign and symptom of upper respiratory problem. She has urinary tract infection and the patient does have liver cirrhosis. She has pacemaker in place. The patient is otherwise stable at this time. PAST MEDICAL HISTORY: Systolic dysfunction congestive heart failure. Liver cirrhosis. Hypertension. Dyslipidemia. Sick sinus syndrome with permanent pacemaker. Hypothyroidism. Atrial fibrillation. Coronary artery disease. PAST SURGICAL HISTORY: Permanent pacemaker. Left carotid endarterectomy. SOCIAL HISTORY: The patient does not smoke or use alcohol. No recreational drugs. ALLERGIES: NO KNOWN ALLERGIES. HOME MEDICATIONS: The patient is on Norvasc, ascorbic acid, Lipitor, Coreg, Celexa, Dexilant, ferrous sulfate, furosemide, levothyroxine, Xarelto, Linzess, and propafenone. PHYSICAL EXAMINATION: VITAL SIGNS: Temperature is 98.6, blood pressure 100/55, pulse rate is 60, respirations 18. GENERAL: The patient is not in acute distress. She is awake. HEENT: Normocephalic, atraumatic. Pupils reactive. Anicteric. NECK: Supple grossly. PULMONARY: Diminished breath sounds. CARDIOVASCULAR: S1, S2. Irregularly irregular, rate controlled. ABDOMEN: Soft. EXTREMITIES: No cyanosis or edema. NEUROLOGIC: No gross focal deficit. LABORATORY DATA: Sodium is 138, potassium 3, chloride 98, bicarb 27, BUN 36, creatinine 2.3, glucose 93. WBC is 18, hemoglobin 10.3, hematocrit 31.4, platelets 96. INR is 2.14. IMPRESSION: 1. Acute on chronic systolic dysfunction congestive heart failure. 2. Urinary tract infection. 3. Electrolyte disorder. 4. Chronic kidney disease stage 3 to 4. PLAN: IV furosemide. Antibiotics. Check urine culture. Repeat lab work. Echocardiogram. CT of the chest and abdomen without IV contrast. MD DANIS Michael/GENARO /[id number]
[2019-01-12] MEDS: POTASSIUM CHLORIDE 10MEQ EA PO SCH ×3 (14:30→17:28)
[2019-01-12] MEDS ORDERED: HYDROCODONE/APAP 5MG-325MG TAB PO PRN (14:45)
[2019-01-12] MEDS: CEFTRIAXONE SOD 1 GM/NS 50 ML 50 ML IV SCH (17:28)
[2019-01-12] MEDS ORDERED: SODIUM CHLORIDE 0.9% 1000ML 1,000 ML ONE (17:34)
[2019-01-12] MEDS: PROPAFENONE HCL 150 MG TAB PO SCH (17:57)
--- NOTE | 2019-01-12 18:55 | NUR ---
PATIENT IS SITTING ON RECLINER. NO S/S OF DISTRESS. DAUGHTER AT THE BEDSIDE.
--- NOTE | 2019-01-12 19:13 | Consultation ---
DATE OF CONSULTATION: 01/12/2019 Cardiology Consultation CHIEF COMPLAINT: The patient is an 83-year-old, who presented with back pain and shortness of breath. HISTORY OF PRESENT ILLNESS: The patient is an 83-year-old with a history of cirrhosis and chronic atrial fibrillation, who came to the emergency room complaining of back pain and shortness of breath. The patient has had no chest pain. The chest x-ray did show some congestive heart failure. PAST MEDICAL HISTORY: Significant for, 1. Echocardiogram done in May 2018, which demonstrated normal left ventricular size and function. 2. History of chronic atrial fibrillation for which the patient is on Xarelto. 3. History of permanent pacemaker placement. 4. History of liver cirrhosis. 5. History of previous carotid endarterectomy. 6. History of renal insufficiency. MEDICATIONS: At home include Norvasc, Xarelto, Lipitor, Coreg, Celexa, propafenone. SOCIAL HISTORY: The patient does not smoke and does not drink. The patient lives independently. FAMILY HISTORY: There is a known family history of hypertension and heart disease. PHYSICAL EXAMINATION: GENERAL: The patient is a well-developed, well-nourished female, in no obvious distress. VITAL SIGNS: Included a temperature of 98.8, blood pressure of 100/60, pulse was 60. HEAD, EARS, EYES, NOSE, and THROAT: The patient's cranium was normocephalic and atraumatic. Extraocular muscles were intact. Sclerae were anicteric. Pupils were equal, round, and reactive to light. There was no pallor or cyanosis of the oral mucosa. No erythema or edema of the throat. NECK: Supple. No jugular venous distention. CHEST: Demonstrated some rale at the bases. CARDIAC: Demonstrated an irregularly irregular rhythm with a short 2/6 systolic murmur. ABDOMEN: Demonstrated good bowel sounds. No tenderness and no masses. EXTREMITIES: There is no clubbing, no cyanosis, and no edema. NEUROLOGICAL: The patient was alert and oriented x3. Cranial nerves were intact. Motor strength was intact in all limbs. DATA: The patient's EKG demonstrated atrial fibrillation with nonspecific ST and T-wave changes. IMPRESSION: The patient is an 83-year-old with chronic atrial fibrillation and some chronic diastolic heart failure. My recommendations are as follows, 1. The patient will need a repeat echocardiogram with Doppler. 2. The patient will need to be diuresed with IV Lasix. 3. The patient will need to be continued on Xarelto. 4. The patient's potassium will need to be supplemented. Shaw Ross MD D[facility]/MODL /[id number] cc: Mukul Galeano MD
--- NOTE | 2019-01-12 20:00 | NUR ---
Received change of shift report from AM nurse. Walking rounds done.
--- NOTE | 2019-01-12 20:24 | NUR ---
Patient c/o constipation. Given warm prune juice. Patient AAOx3. [place] speaking. Daughter at bedside. Denies pain at this time. Continue monitor.
[2019-01-12] MEDS: ATORVASTATIN 20 MG TAB PO SCH (21:00)
[2019-01-13] VITALS (7 sets, daily range): BP systolic 93–140; BP diastolic 37–70
--- NOTE | 2019-01-13 01:53 | Diagnostic Imaging Report ---
CT chest, abdomen and pelvis without intravenous contrast Indication: Shortness of breath, pain Technique: Thin collimation axial images obtained from the thoracic inlet to the level of the pubic symphysis following the uneventful administration of oral contrast. RADIATION DOSE: Total DLP: 100 mGy*cm Estimated effective dose: (DLP x 0.015 x size factor) mSv CTDIvol has been reviewed. It is below the limits set by the Radiation Protocol Committee (RPC). Dose reduction techniques used: Automated exposure control, adjustment of the mAs and/or kVp according to patient size, standardized low-dose protocol, and/or iterative reconstruction technique. Comparison: Report of CT of the abdomen/pelvis performed 10/29/2015. Images are not available for comparison.. CHEST FINDINGS: Lymph nodes: No enlarged axillary, supraclavicular lymph nodes. Mediastinal lymph nodes are prominent, and measure up to 11 mm.. Thyroid: Visualized portions are normal. Mediastinum: Multiple pacemaker wires in the right atrium and right ventricle. The heart is enlarged with cardiac bypass changes. No pericardial effusion. Coronary artery stents are present. Lungs: Right Lung: Diffusely hyperinflated. Subsegmental atelectasis in the inferior upper lobe and at the apex of the middle lobe. There is posterior atelectasis of the lower lobe. Left Lung: Diffusely hyperinflated. Subsegmental atelectasis in the lingula and lower lobe. Airways: Patent. Pleura:Small bilateral pleural effusions. ABDOMEN FINDINGS: Liver: Normal attenuation. Mildly lobulated contours. No mass. Gallbladder: Present and appears normal. No biliary ductal dilatation. Pancreas: Diffuse fatty atrophy. No mass or ductal dilatation. Spleen: Normal in size without mass. Adrenal Glands: No evidence for mass. Kidneys: Right: Mildly atrophic, measuring 9.7 cm in length. No cortical mass. No hydronephrosis. Left: Measures 11.3 cm in length with focal cortical atrophy. Cyst in the posterior interpolar region measuring up to 2.6 cm.. No calculus. No hydronephrosis. Lymph Nodes: No enlarged abdominal or periaortic lymph nodes. Aorta: Mildly tortuous and measures 2.3 cm in diameter. The aorta and its territories are heavily calcified. There is a stent in the right external iliac artery. PELVIS FINDINGS: Bowel: Stomach: Distended with enteric contrast and is normal. Small Bowel: Contains enteric contrast. No dilatation or mural thickening. Large Bowel: Diverticulosis coli, particularly the descending colon and sigmoid colon. No associated inflammation. No significant burden of stool in the large bowel. No mural thickening or pericolonic inflammation. Appendix: Normal appendix. Bladder: Underdistended. Lymph Nodes: No enlarged mesenteric, pelvic, or internal lymph nodes. The uterus is atrophic. No adnexal mass. Peritoneum/retroperitoneum: No free fluid or fluid collection.. Soft tissues: Unremarkable Bones: Median sternotomy wires appear intact. There are mild to moderate degenerative changes of the spine with superimposed scoliosis. Mild wedging of the T11 vertebral body of approximately 25%. There is 2 to 3 mm of retrolisthesis of L1 on L2. No pars defects. No lytic or blastic lesions. IMPRESSION: 1. Small airways disease. Small bilateral pleural effusions and atelectasis as described above. 2. Diverticulosis coli. No evidence for bowel obstruction or inflammation. 3. Cardiomegaly. Postoperative changes of the mediastinum as described above. Tortuous infrarenal aorta. Severe atherosclerosis. 4. Left renal scarring and cysts. Mildly diminutive right kidney. Signed by: Dr. Sabina Ramos MD on 01/13/2019 1:49 AM
--- NOTE | 2019-01-13 03:57 | NUR ---
Patient resting quitly with no c/o at this time. Continue monitor for changes in patient condition.
[2019-01-13] MEDS: LEVOTHYROXINE SODIUM 75 MCG TAB PO SCH (05:30)
[2019-01-13 06:05] LABS: BASOPHILS % 0.2 % (0.0-1.0); EOSINOPHILS # (AUTO) 0.1 (0.0-0.4); EOSINOPHILS % 0.9 % (0.0-6.0); HEMATOCRIT 32.1 % (34.2-44.1); HEMOGLOBIN 10.6 g/dL (12.0-16.0); LYMPHOCYTES # (AUTO) 0.9 (1.0-3.2); LYMPHOCYTES % 9.9 % (18.0-39.1); MEAN CORPUSCULAR HEMOGLOBIN 31.3 pg (28-32); MEAN CORPUSCULAR VOLUME 94.7 fL (81-99); MONOCYTES % 10.4 % (4.4-11.3); NEUTROPHILS # (AUTO) 7.3 (2.1-6.9); NEUTROPHILS % 78.2 % (38.7-80.0); PLATELET COUNT 95 x10e3/uL (140-360); RED BLOOD COUNT 3.39 x10e6/uL (3.6-5.1); RED CELL DISTRIBUTION WIDTH 13.2 % (11.7-14.4)
[2019-01-13 06:33] LABS: ANION GAP 17.6 mmol/L (8-16); CALCIUM 8.8 mg/dL (8.4-10.2); CREATININE, SERUM 2.37 mg/dL (0.57-1.11); POTASSIUM 3.6 mmol/L (3.5-5.1)
[2019-01-13 06:56] LABS: MAGNESIUM 2.3 MG/DL (1.3-2.1); PHOSPHORUS 4.2 MG/DL (2.3-4.7)
[2019-01-13 07:18] LABS: THYROID STIMULATING HORMONE 1.866 uIU/mL (0.350-4.940)
[2019-01-13] MEDS: RIVAROXABAN 15 MG TABLET PO SCH (08:58)
[2019-01-13] MEDS: PROPAFENONE HCL 150 MG TAB PO SCH ×2 (08:58→17:19)
[2019-01-13] MEDS: PANTOPRAZOLE SOD 40 MG TABEC PO SCH (08:58)
[2019-01-13] MEDS: ASCORBIC ACID 500 MG TAB PO SCH (08:58)
[2019-01-13] MEDS: CITALOPRAM HYDROBROMIDE 20 MG TAB PO SCH (08:58)
[2019-01-13] MEDS: FUROSEMIDE INJ 10 MG/ML 2 ML VIAL IV SCH (08:58)
[2019-01-13] MEDS ORDERED: BISACODYL 10 MG SUPP PR PRN (10:45)
[2019-01-13] MEDS ORDERED: ONDANSETRON HCL 4 MG ORAL DISINTEGRATING TAB PO PRN (11:30)
[2019-01-13 12:36] LABS: LYMPHOCYTES % (MANUAL) 12 % (19-48)
[2019-01-13 12:37] LABS: EOSINOPHILS % (MANUAL) 1 % (0-7)
[2019-01-13 12:38] LABS: MONOCYTES % (MANUAL) 9 % (3.4-9.0); NEUTROPHILS % (MANUAL) 78 % (40-74)
[2019-01-13 12:39] LABS: PLATELET ESTIMATE MODERATELY DECREASED
[2019-01-13 12:42] LABS: PLATELET MORPHOLOGY COMMENT NORMAL; RBC MORPHOLOGY COMMENT NORMAL
[2019-01-13] MEDS: SENNA-S TABLET PO SCH (17:19)
[2019-01-13] MEDS: CEFTRIAXONE SOD 1 GM/NS 50 ML 50 ML IV SCH (17:20)
--- NOTE | 2019-01-13 19:00 | NUR ---
Received report from previous nurse. Call light within reach. Patient in bed. Family at bedside
--- NOTE | 2019-01-13 19:30 | NUR ---
Report given to oncoming nurse of patient's status. Sitting on recliner. No s/s of acute distress noted. Family member at bedside
[2019-01-13] MEDS: ATORVASTATIN 20 MG TAB PO SCH (22:04)
[2019-01-14] VITALS (9 sets, daily range): BP systolic 122–159; BP diastolic 58–70
[2019-01-14] MEDS: LEVOTHYROXINE SODIUM 75 MCG TAB PO SCH (05:41)
[2019-01-14 06:07] LABS: BASOPHILS % 0.4 % (0.0-1.0); EOSINOPHILS # (AUTO) 0.1 (0.0-0.4); EOSINOPHILS % 0.8 % (0.0-6.0); HEMATOCRIT 32.7 % (34.2-44.1); HEMOGLOBIN 10.9 g/dL (12.0-16.0); LYMPHOCYTES # (AUTO) 1.2 (1.0-3.2); LYMPHOCYTES % 16.9 % (18.0-39.1); MEAN CORPUSCULAR HEMOGLOBIN 31.1 pg (28-32); MEAN CORPUSCULAR HGB CONC 33.3 g/dL (31-35); MEAN CORPUSCULAR VOLUME 93.2 fL (81-99); MONOCYTES # (AUTO) 0.8 (0.2-0.8); MONOCYTES % 11.2 % (4.4-11.3); NEUTROPHILS # (AUTO) 5.1 (2.1-6.9); NEUTROPHILS % 69.9 % (38.7-80.0); PLATELET COUNT 109 x10e3/uL (140-360); RED BLOOD COUNT 3.51 x10e6/uL (3.6-5.1); RED CELL DISTRIBUTION WIDTH 12.9 % (11.7-14.4)
[2019-01-14 06:30] LABS: ANION GAP 13.1 mmol/L (8-16); CALCIUM 8.4 mg/dL (8.4-10.2); CREATININE, SERUM 1.55 mg/dL (0.57-1.11); POTASSIUM 3.1 mmol/L (3.5-5.1)
--- NOTE | 2019-01-14 07:12 | NUR ---
PATIENT IN BED RESTING WITH NO RESPIRATORY DISTRESS. O2 IN PLACE VIA N/C, DENIED PAIN AT THIS TIME. BED IN LOWER POSITION, CALL LIGHT AT REACH. FAMILY AT BED SIDE.
--- NOTE | 2019-01-14 07:15 | NUR ---
GAVE REPORT TO ONCOMING NURSE. PATIENT IN BED. FAMILY AT BEDSIDE. CALL LIGHT WITHIN REACH.
[2019-01-14] MEDS: PANTOPRAZOLE SOD 40 MG TABEC PO SCH (07:46)
[2019-01-14] MEDS: CITALOPRAM HYDROBROMIDE 20 MG TAB PO SCH (09:05)
[2019-01-14] MEDS: PROPAFENONE HCL 150 MG TAB PO SCH ×2 (09:06→17:12)
[2019-01-14] MEDS: SENNA-S TABLET PO SCH ×2 (09:06→17:11)
[2019-01-14] MEDS: ASCORBIC ACID 500 MG TAB PO SCH (09:06)
[2019-01-14] MEDS: RIVAROXABAN 15 MG TABLET PO SCH (09:06)
[2019-01-14] MEDS ORDERED: POTASSIUM CHLORIDE 20 MEQ TAB CR PO ONE (09:30)
--- NOTE | 2019-01-14 10:29 | NUR ---
SPOKE WITH MD REGARDING ABNORMAL LAB RESULT, NEW ORDER RECEIVED AND IMPLEMENTED.
[2019-01-14] MEDS ORDERED: POTASSIUM CHLORIDE 20 MEQ TAB CR PO STA (14:42)
--- NOTE | 2019-01-14 16:14 | NUR ---
PATIENT OUT OF BED TO RECLINING CHAIR RESTING WITH NO S/S OF DISTRESS. CALL LIGHT AT REACH.
--- NOTE | 2019-01-14 16:56 | Progress Note ---
DATE: 01/14/2019 Medicine Progress Note Covering for Dr. Galeano. SUBJECTIVE: The patient is doing well today with no complaints. No overnight events. OBJECTIVE: VITAL SIGNS: Temperature is 97, pulse 70, respiratory rate is 18, blood pressure 159/70, and pulse ox is 96% on room air. GENERAL: Not in acute distress. Alert and oriented x3. Cooperative on examination. HEENT: Head is normocephalic and atraumatic. Eyes; pupils are equal, round, and reactive to light bilaterally. Extraocular movements are intact bilaterally. Throat, no evidence of erythema or exudates in the posterior pharynx. Has poor dentition. NECK: Supple. Good range of motion. PULMONARY: Clear to auscultation bilaterally. No wheezing, no rales, no rhonchi, no crackles appreciated. CARDIOVASCULAR: Positive S1, S2. No murmurs, rubs, or gallops appreciated. ABDOMEN: Soft, nondistended, and nontender to palpation. Bowel sounds present. MUSCULOSKELETAL: Strength is 5/5 throughout. No evidence of any muscle deficits on examination. No weakness appreciated. NEUROLOGICAL: Cranial nerves 2 through 12 grossly intact. No evidence of any neurological deficits on exam. SKIN: Intact. Warm to touch. Good cap refill. PSYCHIATRIC: Normal affect and mood. EXTREMITIES: No edema. Good range of motion throughout. LABORATORY DATA: Lab findings show white count 7.2, hemoglobin 10.8, hematocrit is 32, and platelets of 109. Chemistry; sodium 137; potassium 3.1, replaced; chloride 100; bicarb 27; anion gap of 13; BUN is 31; creatinine is 1.55; calcium is 8.4; magnesium 2.3. Troponins were negative. Urinalysis consistent with UTI. Throat cultures were negative. Blood cultures were negative. Urine culture positive for E coli sensitive to Rocephin, IMAGING STUDIES: CT abdomen and pelvis, nothing acute. IMPRESSION: 1. Acute pyelonephritis with underlying urinary tract infection. 2. Acute on chronic congestive heart failure with systolic dysfunction. 3. Electrolyte abnormalities. 4. Acute kidney injury on chronic kidney disease stage 3. PLAN: Urine cultures noted, continue with IV Rocephin. Electrolytes are stable. White count improved to 7.2. Repeat labs in the morning. If the patient is doing well and tolerating diet and ambulating, we will consider discharge tomorrow. Replace potassium. MD PAN Rivera/GENARO /[id number]
[2019-01-14] MEDS: CEFTRIAXONE SOD 1 GM/NS 50 ML 50 ML IV SCH (18:18)
--- NOTE | 2019-01-14 19:14 | NUR ---
PT IS RESTING IN THE CHAIR. RESPIRATION IS EVEN AND UNLABORED, NO DISTRESS NOTED. BED IN THE LOWEST POSITION, LOCKED, AND CALL LIGHT WITHIN REACH. WILL CONTINUE TO MONITOR.
[2019-01-14] MEDS: ATORVASTATIN 20 MG TAB PO SCH (20:04)
[2019-01-15] VITALS: BP 119/59
[2019-01-15 04:00] VITALS: BP 138/68
[2019-01-15] MEDS: LEVOTHYROXINE SODIUM 75 MCG TAB PO SCH (05:15)
[2019-01-15 06:22] LABS: BASOPHILS % 0.1 % (0.0-1.0); EOSINOPHILS # (AUTO) 0.1 (0.0-0.4); HEMATOCRIT 33.8 % (34.2-44.1); HEMOGLOBIN 11.4 g/dL (12.0-16.0); LYMPHOCYTES # (AUTO) 1.4 (1.0-3.2); LYMPHOCYTES % 19.5 % (18.0-39.1); MEAN CORPUSCULAR HEMOGLOBIN 31.6 pg (28-32); MEAN CORPUSCULAR HGB CONC 33.7 g/dL (31-35); MEAN CORPUSCULAR VOLUME 93.6 fL (81-99); MONOCYTES % 13.4 % (4.4-11.3); NEUTROPHILS # (AUTO) 4.7 (2.1-6.9); PLATELET COUNT 117 x10e3/uL (140-360); RED BLOOD COUNT 3.61 x10e6/uL (3.6-5.1); RED CELL DISTRIBUTION WIDTH 12.7 % (11.7-14.4)
[2019-01-15 06:59] LABS: ANION GAP 15.1 mmol/L (8-16); CALCIUM 9.5 mg/dL (8.4-10.2); CREATININE, SERUM 1.42 mg/dL (0.57-1.11); POTASSIUM 4.1 mmol/L (3.5-5.1)
[2019-01-15 07:10] VITALS: BP 163/72
--- NOTE | 2019-01-15 07:10 | NUR ---
PATIENT OUT OF BED TO CHAIR WATCHING TV, NO COMPLAIN VOICED. ALL PERSONAL ITEMS CLOSE TO PATIENT. CALL LIGHT AT REACH.
[2019-01-15] MEDS: PANTOPRAZOLE SOD 40 MG TABEC PO SCH (07:34)
[2019-01-15 08:20] VITALS: BP 163/72
[2019-01-15] MEDS: CITALOPRAM HYDROBROMIDE 20 MG TAB PO SCH (09:02)
[2019-01-15] MEDS: ASCORBIC ACID 500 MG TAB PO SCH (09:03)
[2019-01-15] MEDS: RIVAROXABAN 15 MG TABLET PO SCH (09:03)
[2019-01-15] MEDS: SENNA-S TABLET PO SCH ×2 (09:03→17:30)
[2019-01-15] MEDS: PROPAFENONE HCL 150 MG TAB PO SCH ×2 (09:03→17:30)
--- NOTE | 2019-01-15 11:17 | NUR ---
PATIENT AMBULATING IN HALLWAY WITH FAMILY MEMBER,NO DISTRESS NOTED. WILL CONTINUE TO MONITOR.
[2019-01-15 11:55] VITALS: BP 128/59
--- NOTE | 2019-01-15 16:17 | NUR ---
PATIENT SITTING IN RECLINING CHAIR TALKING TO FAMILY MEMBER VISITING. CALL LIGHT AT REACH.
[2019-01-15 16:51] VITALS: BP 161/77
--- NOTE | 2019-01-15 18:30 | NUR ---
PATIENT DISCHARGED HOME. DISCHARGE INSTRUCTIONS, PRESCRIPTIONS, AND FOLLOW UP GIVEN TO PATIENT AND DAUGHTER, THEY VERBALIZED UNDERSTANDING. IV TO LEFT HAND REMOVED WITH TIP INTACT. ALL PERSONAL ITEMS TAKEN WITH PATIENT. LEFT UNIT PER WHEEL CHAIR TO FRONT LOBBY IN STABLE CONDITION.
--- NOTE | 2019-01-16 02:35 | Discharge Summary ---
FINAL DISCHARGE DIAGNOSES: 1. Acute pyelonephritis with underlying urinary tract infection. 2. [id number] congestive heart failure with systolic dysfunction. 3. Electrolyte abnormalities. 4. Acute kidney injury on chronic kidney disease stage 3, resolved. CONSULTANTS: Cardiology. PHYSICAL EXAMINATION: VITAL SIGNS: Temperature is 98.4, pulse 70, respiratory rate is 18, blood pressure 151/79, pulse ox 97% on room air. LABORATORY FINDINGS: Show white count 7.2, hemoglobin is 11, hematocrit 33.8, platelets of 170. Sodium 135, potassium 4.1, chloride 97, bicarb 27, anion gap of 15, BUN 20, creatinine is 1.2, glucose is 102, calcium 9.5. Troponins were negative. Urinalysis concerning for UTI. MICROBIOLOGY: Throat culture negative. Urine culture E coli. Blood cultures were negative. IMAGING STUDIES: Chest x-ray shows interstitial pulmonary edema. CT chest, small airway disease, small pleural effusion, and atelectasis as described above. Diverticulosis. No evidence of obstruction or collection. CT abdomen and pelvis, noted as described above with CT chest. HOSPITAL COURSE: An 83-year-old female, came in and treated for underlying acute pyelonephritis and UTI. The patient was on broad-spectrum IV antibiotics. Blood cultures were negative. Throat cultures were negative. Urine culture consistent with E coli and discharged on oral Omnicef based on sensitivities. The patient improved throughout the hospital course. She was found to have white count on admission, but downtrended to normal at 7.25 to being discharged. Cardiology was consulted. She was treated for acute exacerbation of CHF. The patient was on cardioprotective medications, IV diuretics. Electrolytes were replaced accordingly. She was also found to have acute kidney injury on chronic kidney disease stage 3, which resolved prior to being discharged home. The patient was cleared for discharge by Cardiology. On the day of discharge, vital signs were stable, labs reviewed and stable. The patient was seen and evaluated, examined thoroughly on the day of discharge. No other complaints. 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 MEDICATIONS: See med reconciliation form. DISPOSITION: Home. CONDITION: Stable. DIET: Heart healthy. In the event of any worsening symptoms, the patient was advised to come back to the ED for further evaluation. Discharge summary took greater than 35 minutes. MD PAN Rivera/GENARO /[id number]
== END 2019-01-15 18:25 | disposition home or self-care (01) | DRG 291 ==
LOC: ER 13:58 → ERHOLD 18:38 → MED/SURG3 22:09
PROVIDERS: ADMIT Internal Medicine; ATTEND Internal Medicine
DX: I13.0 Hypertensive heart and chronic kidney disease with heart failure and stage 1 through stage 4 chronic kidney disease, or unspecified chronic kidney disease (principal); I50.23 Acute on chronic systolic (congestive) heart failure; N10 Acute pyelonephritis; N18.4 Chronic kidney disease, stage 4 (severe); N17.9 Acute kidney failure, unspecified; D70.3 Neutropenia due to infection; R50.81 Fever presenting with conditions classified elsewhere; E78.5 Hyperlipidemia, unspecified; I25.10 Atherosclerotic heart disease of native coronary artery without angina pectoris; Z95.1 Presence of aortocoronary bypass graft; K74.60 Unspecified cirrhosis of liver; Z95.0 Presence of cardiac pacemaker; E03.9 Hypothyroidism, unspecified; I48.2 Chronic atrial fibrillation; Z79.01 Long term (current) use of anticoagulants; Z82.49 Family history of ischemic heart disease and other diseases of the circulatory system; N18.3 Chronic kidney disease, stage 3 (moderate); B96.20 Unspecified Escherichia coli [E. coli] as the cause of diseases classified elsewhere
CPT/HCPCS: 36415; 71045; 71250; 74176; 80048; 80053; 81001; 82140; 82550; 82553; 83036; 83518; 83605; 83735; 84100; 84443; 84484; 85025; 85610; 85730; 87040; 87070; 87086; 87186; 87400; 93005; 93306; 96365; 99284; J0692; J0696; J1940; J7030